=== PATIENT | male | born 1945 | race Caucasian/White ===

== ENCOUNTER 2023-12-01 17:14 | Emergency (ER) | payer MEDICARE, BC, SELFPAY ==
[2023-12-01] VITALS (7 sets, daily range): BP systolic 123–162; BP diastolic 74–88; PULSE 57–80; RESP 12–16; TEMP 37.2; O2SAT 93–96; BMI 36.0
--- NOTE | 2023-12-01 17:45 | ED.GENADULT ---
HPI - General Adult General Chief complaint: Arrhythmia/Palpitations Stated complaint: Chest tightness/weakness. History of heart arrythm Time Seen by Provider: 12/01/23 17:28 History of Present Illness HPI narrative: This 78-year-old male comes in reporting some chest tightness that occurred prior to arrival when he was working on a flower box. Upon arrival here he states that he is not having any symptoms. The this occurred with mild to moderate activity and was relieved with rest. He states that last week he had similar chest tightness when he was running at [employer]. He does not report any nausea, vomiting, lightheadedness, shortness of breath, or diaphoresis. He does report some palpitations. He does have history of hyperlipidemia and is taking appropriate medicines. He does not report any other risk factors for heart disease. Related Data Home Medications Medication Instructions Recorded Confirmed atorvastatin 20 mg tablet mg PO 12/01/23 levothyroxine 75 mcg tablet mcg PO 12/01/23 losartan 50 mg tablet 50 mg PO DAILY 12/01/23 12/01/23 metoprolol succinate 50 mg mg PO 12/01/23 tablet,extended release 24 hr niacin 500 mg tablet,extended mg PO 12/01/23 release (Slo-Niacin) Allergies Allergy/AdvReac Type Severity Reaction Status Date / Time No Known Drug Allergies Allergy Verified 12/01/23 17:20 Review of Systems Status of ROS: Reports: 10 or more systems reviewed and unremarkable except as noted in History and below Narrative: Constitutional: No fevers, no weight gain or loss. Eyes: No discharge. No vision changes. HENT: No congestion, no sore throat, no ear pain. Cardiovascular: Chest tightness with exertion and relieved with rest. He reports palpitations. Respiratory: No shortness of breath, no wheezes, no cough. Gastrointestinal: No abdominal pain, no vomiting, no diarrhea. Genitourinary: No dysuria, no hematuria. Musculoskeletal: Normal range of motion. Skin: No rashes, no pruritis. Neurological: No dizziness, weakness, sensory change, speech change. Endo/Heme/Allergies: No bruising or bleeding. No polydipsia. Pysch: no suicidality, no anxiety, no insomnia. All other systems reviewed and are negative. PFSH PFSH Social History Smoking Status: Never smoker How often do you have a drink containing alcohol: never AUDIT-C Alcohol total score: 0 Non-prescribed substance use: denies use Exam Narrative: Exam Narrative: Constitutional: Well-developed, well-nourished, no acute distress. HEENT: Normocephalic, atraumatic. Neck: Normal range of motion. Nontender. Supple. Heart: The occasional premature beats. No murmurs. Normal rate. Intact distal pulses. Lungs: Clear to auscultation. No chest discomfort. No wheezes, rhonchi, or rales. Abdomen: Normal bowel sounds. Nontender. No rebound tenderness. Genitalia: Deferred. Back: No midline tenderness. Normal range of motion. Extremities: Normal range of motion. No injury. Skin: Intact. No rash. Warm. No erythema or pallor. Neurologic: No altered sensation. No weakness. Alert and oriented. Psychiatric: No suicidality. No anxiety or depression. No insomnia. Nursing notes and vitals signs are reviewed. Const: Vital Signs, click to edit/add: Vital Signs - 24 hr 12/01/23 17:21 Temperature 98.9 F Pulse Rate [Pulse Oximeter] 64 Respiratory Rate 14 Blood Pressure [Ri ght Upper Arm] 151/86 H Pulse Oximetry 94 Oxygen Delivery Me thod Room Air Course Vital Signs Vital signs: Initial Vital Signs Respiratory Effort Normal, Spontaneous, Non-Labored 12/01/23 17:20 Respiratory Depth Normal 12/01/23 17:20 Vital Signs Temperature 98.9 F 12/01/23 17:21 Pulse Rate 64 12/01/23 17:21 Respiratory Rate 14 12/01/23 17:21 Blood Pressure 151/86 H 12/01/23 17:21 Pulse Oximetry 94 12/01/23 17:21 Oxygen Delivery Method Room Air 12/01/23 17:21 Temperature 98.9 F 12/01/23 17:21 Pulse Rate 64 12/01/23 17:21 Respiratory Rate 14 12/01/23 17:21 Blood Pressure 151/86 H 12/01/23 17:21 Pulse Oximetry 94 12/01/23 17:21 Oxygen Delivery Method Room Air 12/01/23 17:21 Medications Administered Medications: Generic Name Dose Route Start Last Admin Trade Name Freq PRN Reason Stop Dose Admin Metoprolol Tartrate 25 mg 12/01/23 18:50 12/01/23 18:56 Metoprolol Tartrate 25 Mg Tablet PO 12/01/23 18:51 25 mg ONCE ONE Administration Medical Decision Making MDM Narrative Medical decision making narrative: This patient comes in reporting chest tightness that is related to exertion and relieved with rest. He did not have any other associated symptoms but these symptoms have repeated in the past week. He does have hyperlipidemia and is taking metoprolol. He did receive an oral dose of aspirin 324 mg here today. He is no longer having any pain or discomfort. On the cardiac technician he is having frequent PVCs sometimes in a pattern of bigeminy. His EKG shows normal sinus rhythm without any ST or T-wave abnormalities. Lab results returned with a troponin at 0. This patient has classic symptoms of stable angina and I recommended consult with Cardiology for purposes of expediting a follow-up for him. The patient is a [facility] patient and wants to go back there. I attempted to consult with Cardiology there but they denied such a consult stating that the patient has not been in the cardiology clinic there it within the last 2 years. I relayed this information to the patient and stated that [facility] did not to arrange a consult for such follow-up. I offered to arrange a cardiology consult elsewhere such as with [facility] but the patient declined this stating that he will arrange an appointment himself at the [facility] facility. The patient is encouraged to take a regular strength aspirin daily and continue his metoprolol. I advised him to avoid doing any strenuous activity that causes symptoms. I also advised him to return if symptoms are recurrent. Lab Data Labs: Lab Results 12/01/23 Range/Units 17:35 WBC 7.13 (4.50-11.00) K/uL RBC 4.94 (4.30-5.90) m/uL Hgb 15.1 (13.5-17.5) gm/dL Hct 43.5 (37.0-53.0) % MCV 88 (80-100) fL MCH 31 (26-34) pg MCHC 35 (32-36) gm/dL RDW Coeff of Nehal 11.8 (11.5-15.5) % Plt Count 202 (140-440) K/uL Neut % (Auto) 60.5 (42.0-72.0) % Lymph % (Auto) 30.9 (20-44) % Bollinger % (Auto) 6.9 (0.0-11.0) % Eos % (Auto) 1.1 (0.0-7.0) % Baso % (Auto) 0.6 (0.0-3.0) % Neut # (Auto) 4.32 (1.7-7.0) K/uL Lymph # (Auto) 2.20 (0.90-2.90) K/uL Bollinger # (Auto) 0.50 (0.00-0.90) K/UL Eos # (Auto) 0.08 (0.00-0.50) K/uL Baso # (Auto) 0.04 (0.00-0.30) K/uL Abs Immat Gran (auto) 0.00 (0.00-0.30) K/uL Imm/Tot Granulo (auto) 0.0 % Sodium 140 (135-149) mmol/L Potassium 4.0 (3.6-5.1) mmol/L Chloride 108 (96-114) mmol/L Carbon Dioxide 26 (20-32) mmol/L Anion Gap 6 L (7-15) mEq/L BUN 20 (7-30) mg/dL Creatinine 1.0 (0.5-1.5) mg/dL Estimated Creat Clear 57.84 Estimated GFR 78 ml/min Glucose 104 (60-115) mg/dL Calcium 9.3 (8.4-10.6) mg/dL POC Troponin I 0.00 L (0.01-0.04) ng/ml ECG Data Attestation: I personally reviewed and interpreted this ECG as follows: Interpretation: Normal sinus rhythm. Rate is 76 beats per minute. There are no ST or T-wave abnormalities. Discharge Plan Discharge Clinical Impression: Stable angina Patient Disposition: Home, Self-Care Condition: Unchanged Additional Instructions: Follow-up with cardiology clinic as soon as possible. Call for appointment or return if symptoms are recurrent or worsening. Take a 325 mg aspirin daily. Prescriptions: No Action losartan 50 mg tablet 50 mg PO DAILY atorvastatin 20 mg tablet PO metoprolol succinate 50 mg tablet extended release 24 hr PO levothyroxine 75 mcg tablet PO niacin [Slo-Niacin] 500 mg tablet extended release PO Follow Up/Referrals: Iban Sabillon MD [Referring] - Stand Alone Forms: Myrl Info Instructions
--- OUTSIDE RECORDS SUMMARY | 2023-12-01 18:01 | XMS_ITS | Referral Summary ---
Author Name Unknown Organization [facility] Address [address] [place] [address] Care Team Providers Care Glycerin Operator Name Role Phone Elsewhere, Pcp Primary Care Provider Unavailabl e Source Comments Patient records contain information from all sites at [facility]. For routine questions regarding patient records, call [phone] during business hours, M-F 8:00 AM - 5:00 PM Central Time. Record requests for emergency care only can be directed to [phone] at any time.[facility] Encounters Date Type Department Care Team Description 09/22/2023 Orders Only Division of Gastroenterology in [place], [place] [address] [place] [address] Rajiv Teran M.D. Genetic Susceptibility To Disease from Last 3 Months Allergies No known active allergies Medications Medication Sig Dispensed Refills Start Date End Date Status cholecalciferol (VITAMIN D3) 125 mcg (5,000 Unit) tablet Take 1,000 Units by mouth daily. 11/25/2012 Active metoprolol succinate (TOPROL-XL) 50 mg 24 hr tablet Take 50 mg by mouth every evening. 07/18/2020 Active losartan (COZAAR) 50 mg tablet TAKE 1 TABLET(50 MG) BY MOUTH EVERY DAY 09/18/2021 Active levothyroxine (SYNTHROID, LEVOTHROID) 75 mcg tablet Take 75 mcg by mouth. 08/21/2021 Act nadia hydrocortisone (HYTONE) 2.5 % creamIndications:De rmatitis Seborrheic Apply 1 application topically 2 (two) times a day as needed (Rash). Apply to ears, mix 1:1 with ketoconazole cream 30 g 6 02/11/2022 Active ketoconazole (NIZORAL) 2 % shampooIndications: Dermatitis Seborrheic Apply 1 application topically 3 (three) times a week. Apply to damp skin, lather, leave on 5 minutes, and rinse 120 mL 6 02/11/2022 Active ketoconazole (NIZORAL) 2 % creamIndications:De rmatitis Seborrheic APPLY TOPICALLY TO EARS TWICE DAILY 30 g 6 03/09/2022 Active Slo-Niacin 500 mg ER tablet 05/03/2022 Active atorvastatin (LIPITOR) 20 mg tablet Take 1 tablet by mouth at bedtime. 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 No 11/14/2022 Within the last year, have y ou been humiliated or emotionally abused in other ways by your partner or ex-partner? No Within the last year, have y ou been kicked, hit, slapped, or otherwise physically hurt by your partner or ex-partner? No 11/14/2022 Within the last year, have y ou been raped or forced to have any kind of sexual activity by your partner or ex-partner? No 11/14/2022 Social Connection and Isolat ion Panel [NHANES] Answer Date Recorded In a typical week, how many times do you talk on the phone with family, friends, or neighbors? More than three times a week 11/14/2022 How often do you get togethe r with friends or relatives? More than three times a week 11/14/2022 How often do you attend [facility] or spiritism services? More than 4 times per year 11/14/2022 Do you belong to any clubs o r organizations such as roman catholic groups, unions, fraternal or athletic groups, or school groups? No 11/14/2022 How often do you attend meet ings of the clubs or organizations you belong to? Never 11/14/2022 Are you , , di vorced, , never , or living with a partner? 11/14/2022 AUDIT-C Answer Date Recorded Q1: How often do you have a drink containing alcohol? Monthly or less 11/14/2022 Q2: How many drinks containi ng alcohol do you have on a typical day when you are drinking? Patient does not drink Q3: How often do you have si x or more drinks on one occasion? Never 11/14/2022 Overall Financial Resource Strain (CARDIA) Answe r Date Recorded How hard is it for you to pa y for the very basics like food, housing, medical care, and heating? Not hard at all 11/14/2022 PHQ-2 Answer Date Recorded PHQ-2 Score 0 11/01/2023 [facility] - Occupational Stress Questionnaire Answer Date Recorded Do you feel stress - tense, restless, nervous, or anxious, or unable to sleep at night because your mind is troubled all the time - these days? To some extent 11/14/2022 Exercise Vital Sign Answer Date Recorde d On average, how many days pe r week do you engage in moderate to strenuous exercise (like a brisk walk)? 0 days 11/14/2022 On average, how many minutes do you engage in exercise at this level? 0 min 11/14/2022 Hunger Vital Sign Answer Date Recorded Within the past 12 months, y ou worried that your food would run out before you got the money to buy more. Never true 11/15/19 23 Within the past 12 months, t he food you bought just didn't last and you didn't have money to get more. Never true 11/14/2022 PRAPARE - Transportation Answer Date Re corded In the past 12 months, has l ack of transportation kept you from medical appointments or from getting medications? No 10/31 In the past 12 months, has l ack of transportation kept you from meetings, work, or from getting things needed for daily living? No 11/14/2022 Housing Stability Vital Sign Answer Colin e Recorded In the last 12 months, was t here a time when you were not able to pay the mortgage or rent on time? No 11/14/2022 In the last 12 months, how many places have you lived? 1 11/14/2022 In the last 12 months, was t here a time when you did not have a steady place to sleep or slept in a half-way (including now)? No 11/14/2022 Nutrition Answer Date Recorded Nutrition: EVOO Fat Source No 11/14 On average, how many serving s of fruits and vegetables do you eat per day (serving size is equal to 1 cup or approximately the size of a tennis ball)? 0-1 11/14/2022 Dental Answer Date Recorded Dental: Regular Dentist Yes 08/11/19 Employment Answer Date Recorded Employment status Retired 11/14/2022 Education Answer Date Recorded What is the highest level of school you have completed or the highest degree you have received? Bachelor's degree (e.g., BA, AB, BS) 04/28/2019 Sex and Gender Information Value Date Recorded Sex Assigned at Male 11/14/2022 2:04 PM CDT Gender Identity Male 11/14/2022 2:04 PM CDT Sexual Orientation Straight 12/20/2017 2: 04 PM CDT Last Filed Vital Signs Vital Sign Reading Time Taken Comments Blood Pressure 133/78 05/04/2022 9:00 AM CDT Pulse 68 05/04/2022 9:00 AM CDT Temperature 36.7 ??C (98.1 ??F) 12/30/2021 8:50 AM CD T Respiratory Rate 10 12/30/2021 9:13 AM CDT Oxygen Saturation 93% 12/30/2021 9:13 AM CDT Inhaled Oxygen Concentration - - Weight 97.5 kg (215 lb) 12/19/2020 10:10 AM CDT Height 180.3 cm (5' 11) 12/19/2020 10:10 AM CDT Body Mass Index 29.99 12/19/2020 10:10 AM CDT Plan of Treatment Upcoming Encounters Date Type Department Care Team (Late st Contact Info) Description 02/01/2024 11:30 AM CDT Comprehensive Visit Department of Family Medicine, [facility], in [place], [place] [address] [place] [address] Kenia Millan APRN, C.N.P. [address] [place] [address] Scheduled Procedures Name Priority Associated Diagnoses Date/Ti me ARTHRODESIS WRIST Medical Devices Implanted Type Area Contact Lens Technician Device Identifier Shelf Expiration Date Model / Serial / Lot Cmnt Bn Hi Visc Pmma 20 - [id number] Implanted:Qty: 1 on 09/22/2019 by Charanjit Kc M.D. at [facility] Bone Cement Right: Shoulder [place] 6188-1-0 01 / / Cmnt Bn Hi Visc Pmma 20 - [id number] Implanted:Qty: 1 on 09/22/2019 by Charanjit Kc M.D. at [facility] Bone Cement Right: Shoulder William 6188-1-0 01 / / Description:Wasted: Surgeon Error- attempted to use in patient but hardened too quick with implant Screw Xpode Lock 2.4 X 20mm - Germain [id number] Implanted:Qty: 2 on 09/18/2014 Hardware e.g. pins/screws /rods [employer] Description:Device Manufactu rer - [employer] Device Status Text - HARDWARE-15071. Kwire 4 .054 - Germain [id number] Implanted:Qty: 1 on 09/18/2014 Hardware e.g. pins/screws /rods BioMet Description:Device Manufactu rer - [employer]. Device Status Text - HARDWARE-02740. Screw Xpode Lock 2.4 X 14mm - Germain [id number] Implanted:Qty: 2 on 09/18/2014 Hardware e.g. pins/screws /rods [employer] Description:Device Manufactu rer - [employer].. Device Status Text - HARDWARE-37053. Screw Xpode Lock 2.4 X 16mm - Germain [id number] Implanted:Qty: 1 on 09/18/2014 Hardware e.g. pins/screws /rods [employer] Description:Device Manufactu rer - [employer].. Device Status Text - HARDWARE-21432. Trimed-Plate Fusion Cup 14mm 7h - Germain [id number] Implanted:Qty: 1 on 09/18/2014 Hardware e.g. pins/screws /rods [employer] Description:Device Manufactu rer - [employer].. Device Status Text - [id number]. K-Wire-Ss 4 Smooth .062 - Germain [id number] Implanted:Qty: 2 on 09/18/2014 Hardware e.g. pins/screws /rods [place] Description:Device Manufactu rer - [place] [employer].. Device Status Text - HARDWARE-871. Screw Xpode Lock 2.4 X 12mm - Germain [id number] Implanted:Qty: 5 on 09/18/2014 Hardware e.g. pins/screws /rods [employer] Description:Device Manufactu rer - [employer].. Device Status Text - HARDWARE-15395. Screw Xpode Lock 2.4 X 10mm - Germain [id number] Implanted:Qty: 2 on 09/18/2014 Hardware e.g. pins/screws /rods [employer] Description:Device Manufactu rer - [employer].. Device Status Text - HARDWARE-93893. [place] Screw 2 Canc 6.5 X 15 - Germain [id number] Implanted:Qty: 1 on 07/03/2015 Hardware e.g. pins/screws /rods [employer] Description:Device Manufactu rer - [employer]. Device Status Text - HARDWARE-89252. [place] Screw 2 Canc 6.5 X 30 - Germain [id number] Implanted:Qty: 1 on 07/03/2015 Hardware e.g. pins/screws /rods [employer] Description:Device Manufactu rer - [employer]. Device Status Text - HARDWARE-90223. Scrw Pnn Acet Ft 6.5x35 - [id number] Implanted:Qty: 1 on 10/18/2020 by López Ramos M.D. at [facility] Hardware e.g. pins/screws /rods Left: Hip Depuy Synthes 08/01/2030 1217-35- 500 / / [id number] Scrw Pnn Acet Ft 6.5x8 - [id number] Implanted:Qty: 1 on 10/18/2020 by López Ramos M.D. at [facility] Hardware e.g. pins/screws /rods Left: Hip Depuy Synthes 07/01/2030 1217-08- 500 / / [id number] [place] Liner Altrx Neut 36x62 - Germain [id number] Implanted:Qty: 1 on 07/03/2015 Hip Implant Other/Legacy - See Implant Description [employer] Description:Device Manufactu rer - [employer]. Body Location - Other. Right. Device Status Text - HIP [id number]-331714. Hip Stem Secur-Fit +Max 12 40 - Germain [id number] Implanted:Qty: 1 on 07/03/2015 Hip Implant Other/Legacy - See Implant Description William Description:Device Manufactu rer - [employer] E[employer].. Body Location - Other. Right. Device Status Text - HIP IMP-340673. Biolox-Delta Head C-Taper 36mm -2.5 - Germain [id number] Implanted:Qty: 1 on 07/03/2015 Hip Implant Other/Legacy - See Implant Description [place] Description:Device Manufactu rer - [place] [employer].. Body Location - Other. Right. Device Status Text - HIP [id number]. [place] Shell Multi 2 62mm - Germain [id number] Implanted:Qty: 1 on 07/03/2015 Hip Implant Other/Legacy - See Implant Description [employer] Description:Device Manufactu rer - [employer]. Body Location - Other. Right. Device Status Text - HIP IMP-118641. Shll Acet Pnn [facility] 62 - [id number] Implanted:Qty: 1 on 10/18/2020 by López Ramos M.D. at [facility] Hip Implant Left: Hip Depuy Synthes 08/01/2030 1217-20- 062 / / [id number] Lnr Alt 0d 40x62 - [id number] Implanted:Qty: 1 on 10/18/2020 by López Ramos M.D. at [facility] Hip Implant Left: Hip Depuy Synthes 09/01/2025 1221-40- 062 / / [id number] Hip Stm Scr +Max Sz12 98r765 - [id number] Implanted:Qty: 1 on 10/18/2020 by López Ramos M.D. at [facility] Hip Implant Left: Hip William 05/31/2024 6052-124 0S / / [id number] Slv Drl Hip Cocr -2.5 - [id number] Implanted:Qty: 1 on 10/18/2020 by López Ramos M.D. at [facility] Hip Implant Left: Hip William 10/22/2024 19-0325T / / [id number] Fem Hd Blx +0x40 - [id number] Implanted:Qty: 1 on 10/18/2020 by López Ramos M.D. at [facility] Hip Implant Left: Hip William 06/16/2025 6519-1-0 40 / / [id number] Comp Glnd Alt Pgd 50 - [id number] Implanted:Qty: 1 on 09/22/2019 by Charanjit Kc M.D. at [facility] Shoulder Implant Right: Shoulder [employer] 01/05/2023 521-07-2 50 / / [id number] Description:Wasted: Surgeon Error, opened and attempted use Comp Glnd Alt Pgd 50 - [id number] Implanted:Qty: 1 on 09/22/2019 by Charanjit Kc M.D. at [facility] Shoulder Implant Right: Shoulder [employer] 11/22/2022 521-07-2 50 / / [id number] Hum Stm Alt Shrt 16 - [id number] Implanted:Qty: 1 on 09/22/2019 by Charanjit Kc M.D. at [facility] Shoulder Implant Right: Shoulder [employer] 03/01/2024 520-16-0 00 / / [id number] Hum Stm Alt Neut - [id number] Implanted:Qty: 1 on 09/22/2019 by Charanjit Kc M.D. at [facility] Shoulder Implant Right: Shoulder [employer] 06/21/2025 520-07-0 / [id number] [facility] Alt Ofst 18x54 - [id number] Implanted:Qty: 1 on 09/22/2019 by Charanjit Kc M.D. at [facility] Shoulder Implant [employer] 06/02/2023 520-54-3 [id number] Procedures Procedure Name Priority Date/Time Associated Diagnosis Comments EXTI TSH W/REFLEX TO FT4 Routine 10/07/2022 11:38 AM FACEPIECE LINE SUPERVISOR EXTI BASIC METABOLIC PANEL, S/P Routine 10/07/2022 11:38 AM FACEPIECE LINE SUPERVISOR from Last 3 Months or Most Recently Relevant to Health Maintenance Advance Directives For more information, please contact: [phone] * Full Code (Latest Code Status on File) Date Activated Date Inactivated Comments 10/18/2020 12:00 PM 10/19/2020 12:55 PM Question Answer Comments Full Code: Discussed Care Teams Glycerin Operator Relationship Specialty Start Date End Date Elsewhere, Pcp PCP - General Internal Medicine 11/08/23
--- OUTSIDE RECORDS SUMMARY | 2023-12-01 18:01 | XMS_ITS | Encounter Summary ---
Author Name Unknown Organization [facility] Address [address] [place] [address] Care Team Providers Care Weapons Engineer Name Role Phone Unavailable Primary Care Provider Unavailabl e Encounter Details Date Type Department Care Team (Late st Contact Info) Description 09/22/2023 Orders Only Division of Gastroenterology in [place], [place] [address] [place] [address] Rajiv Teran M.D. [address] [place] [address] Genetic Susceptibility To Disease Social History Tobacco Use Types Packs/Day Years [...] week 11/14/2022 How often do you attend chur or voodoo services? More than 4 times per year 11/14/2022 Do you belong to any clubs o r organizations such as taoist groups, unions, fraternal or athletic groups, or [...] and heating? Not hard at all 11/14/2022 [facility] - Occupational Stress [...] place to sleep or slept in a senior care (including now)? No 11/14/2022 Nutrition Answer Date [...] Orientation Straight 12/20/2017 2: 04 PM CDT documented as of this encounter Plan of Treatment Upcoming Encounters Date Type Department Care Team (Late st Contact Info) Description 02/01/2024 11:30 AM CDT Comprehensive Visit Department of Family Medicine, [facility], in [place], [place] [address] [place] [address] Kenia Millan APRN, C.N.P. [address] [place] [address] Scheduled Procedures Name Priority Associated Diagnoses Date/Ti me ARTHRODESIS WRIST documented as of this encounter Procedures Procedure Name Priority Date/Time Associated Diagnosis Comments EXT TAPESTRY Routine 10/17/2022 12:00 AM CDT Genetic Susceptibility To Disease documented in this encounter Results * EXT Tapestry (10/17/2022 12:00 AM CDT) Gene Studied BRCA1,BRCA2,MLH1,MSH 2, MSH6,PMS2,EPCAM,APOB,L DLR,LDLRAP1,PCSK9 11/09/2022 12:00 AM CDT [facility] Genetic Disease Assessed Evaluation of 11 genes associated with Hereditary Breast and Ovarian Cancer, Rowland Syndrome and Familial Hypercholesterolemia. 11/09/2022 12:00 AM CDT [facility] Genetic Analysis Overall Interpretation Negative results through Tapestry do not replace diagnostic testing for patients with a personal or family history of cancer/hypercholestero lemia due to limitations with methodology. Consider a referral to a genetic counselor for diagnostic testing if warranted. 11/09/2022 12:00 AM CDT [facility] Genetic Analysis Report See Tapestry PDF Report No actionable gene changes were detected in the genes that cause Familial Hypercholesterolemia. The genes tested for this condition were APOB, LDLR, LDLRAP1, and PCSK9.No actionable gene changes were detected in the genes that cause Hereditary Breast and Ovarian Cancer. The genes tested for this condition were BRCA1 and BRCA2.No actionable gene changes were detected in the genes that cause Rowland Syndrome. The genes tested for this condition were MLH1, MSH2, MSH6, PMS2 and EPCAM. DNA extracted from this individual's sample was captured and enriched using a custom set of reagents (StepOut+ chemistry). Targeted regions were sequenced using an Illumina DNA sequencing system. Your sequence was matched to a modified version of the industry standard reference genome (GRCh38). Variant calling was completed using a customized version of [employer]'s [employer] software, requiring 20x coverage for validated variant calls. Copy Number Variants (CNVs) were called using a proprietary bioinformatics pipeline that compared the coverage profile of your sample with the coverage profiles of other reference set samples. [facility] then analyzed the generated variant data for the exons and 10 bp of flanking intronic sequence (and select tagged intronic variants) of the 11 genes included in Essential Testing from the [employer] Database. Your sample was reviewed for single nucleotide variants (SNVs), indels up to 20 bp in length, and CNVs that are known or predicted to be actionable. NOTE: This assay has limited sensitivity to CNVs smaller than a few exons. APOB, PCSK9, and LDLR interpretation and reporting is specific to the Familial Hypercholesterolemia phenotype. Variants associated with other phenotypes such as Hypobetalipoproteinemi a are not included. Some known complex variants like the inversion of exons 1-7 in the MSH2 gene (Nilam inversion), exons 11-15 of the PMS2 gene, or variants within or immediately adjacent to long homopolymer runs are not analyzed or reported. There are regions that are not covered, such as deep intronic, promoter, and enhancer regions. This assay cannot detect all variants known to increase disease risk. Other clinical diagnostic testing for these conditions could identify variants not detected by this test. If you have had previous testing, these results should be taken into consideration during risk assessments and medical management. 11/09/2022 12:00 AM CDT [facility] Human Reference Sequence Assembly [id number] 11/09/2022 12:00 AM [facility] Saliva (Mouth) 10/17/2022 Rajiv Teran M.D. LAB GENETI C TESTING HELIX [employer] [address], [address] [place] [address], [facility] [place] [address], [address]. [place] [address] documented in this encounter Visit Diagnoses Diagnosis Genetic Susceptibility To Disease documented in this encounter
--- OUTSIDE RECORDS SUMMARY | 2023-12-01 18:01 | XMS_ITS | Clinical Summary ---
Author Name Unknown Organization [facility] Address [place], [place] [address] Care Team Providers Care Manager Labor Relations Name Role Phone James Pompa MD Unavailable [phone] Jose Carpenter MD Unavailable Unavai shanelle iLn, Neto Weaver MD Unavailable [phone] Clemente Núñez MD Unavailable [phone] Floyd Valdez MD Primary Care Provider [phone] Allergies No known active allergies Medications Medication Sig Dispensed Refills Start Date End Date Status hydrocortisone 2.5% cream Apply topically to affected area(s). 07/06/2017 Active cholecalciferol (Vitamin D) 1,000 unit capsuleIndications:V itamin D deficiency Take 1 Capsule (1,000 units) by mouth once daily. 0 08/21/2021 Active ketoconazole 2% shampoo (NIZORAL) 2 % shampoo 02/12/2022 Active ketoconazole 2% topical (NIZORAL) cream 02/12/2022 Active metoprolol succinate (TOPROL XL) 50 mg sustained-release tabletIndications:Es sential hypertension,PVCs (premature ventricular contractions) Take 1 Tablet (50 mg) by mouth once daily. 90 Tablet 3 11/10/2023 Active niacin SR (Slo-Niacin) 500 mg tabletIndications:Mi xed hyperlipidemia Take 1 Tablet (500 mg) by mouth at bedtime. 90 Tablet 3 11/10/2023 Active levothyroxine (SYNTHROID) 75 mcg tabletIndications:Ot her specified hypothyroidism Take 1 Tablet (75 mcg) by mouth once daily. 90 Tablet 3 11/10/2023 Active atorvastatin (LIPITOR) 20 mg tabletIndications:Mi xed hyperlipidemia Take 1 Tablet (20 mg) by mouth at bedtime. 90 Tablet 3 11/10/2023 Active losartan (COZAAR) 50 mg tabletIndications:Es sential hypertension TAKE 1 TABLET EVERY DAY 90 Tablet 3 11/10/2023 Active levothyroxine (SYNTHROID) 75 mcg tabletIndications:Ot her specified hypothyroidism Take 1 Tablet (75 mcg) by mouth once daily. 90 Tablet 3 10/12/2022 4 Discontinue d(Reorder (E-cancel not sent)) metoprolol succinate (TOPROL XL) 50 mg sustained-release tabletIndications:Es sential hypertension,PVCs (premature ventricular contractions) Take 1 Tablet (50 mg) by mouth once daily. 90 Tablet 3 10/12/2022 4 Discontinue d(Reorder (E-cancel not sent)) niacin SR (Slo-Niacin) 500 mg tabletIndications:Mi xed hyperlipidemia Take 1 Tablet (500 mg) by mouth at bedtime. 90 Tablet 3 10/12/2022 4 Discontinue d(Reorder (E-cancel not sent)) atorvastatin (LIPITOR) 20 mg tabletIndications:Mi xed hyperlipidemia TAKE 1 TABLET AT BEDTIME 90 Tablet 10/14/2023 4 Discontinue d(Reorder (E-cancel not sent)) losartan (COZAAR) 50 mg tabletIndications:Es sential hypertension TAKE 1 TABLET EVERY DAY 90 Tablet 10/14/2023 4 Discontinue d(Reorder (E-cancel not sent)) Active Problems Problem Noted Date Diagnosed Date Essential hypertension 01/30/2019 S/P hip replacement 07/09/2015 Overview: bilateral DDD (degenerative disc disease), cervical 2013 Wrist arthropathy 04/19/2014 Screen for colon cancer 01/07/2010 Overview: Colonoscopy 12/2009 diverticulosis repeat in 10 years Mixed hyperlipidemia 10/29/2009 DDD (degenerative disc disease), lumbar 10/30/19 10 Vitamin D deficiency 08/13/2009 Diverticular disease 10/10/2008 Overview: Diverticulosis Esophageal stricture 08/11/2007 Unspecified hypothyroidism 12/31/2006 Resolved Problems Problem Noted Date Diagnosed Date Resolved Date Family hx colonic polyps 10/29/200903/2010 Encounters Date Type Department Care Team Description 12/01/2023 Nurse Triage [facility] [address] [place] [address] Floyd Valdez MD Chest Pain 11/10/2023 1:10 PM CDT Office Visit [facility] [address] Floyd Valdez MD Medicare ANNUAL (subsequent) Visit (77 years) 11/10/2023 Travel 11/08/2023 8:15 AM CDT Orders Only [facility] [address] [place], [place] [facility] 11/08/2023 Travel 11/07/2023 Travel 10/22/2023 Telephone [facility] [address] [facility] [address] Floyd Valdez MD Lab (Requesting orders for wellness visit) 10/13/2023 Refill [facility] [place] [address] Floyd Valdez MD Refill Request (Atorvastatin, Losartan) from Last 3 Months Immunizations Name Administration Dates Next Due AMB INFLUENZA IIV3 (AGE 65+ YRS) PF (Flu Clinic Only) 04/27/2017 AMB Influenza, IIV3 (Age >=3 years)(Flu Clinic Only) 05/29/2013 AMB Influenza, IIV4 PF (=>6 mos Flulaval,Fluzone Fluarix)(Flu Clinic Only) 05/09/2019,05/03/2014 Amb Influenza, Inact (High-d ose) (Flu Clinic Only) 05/08/2016 Amb Influenza, Inactivated A IIV4 (Age 65+ Years) Preserv Free 04/22/2020 COVID-19 vaccine ([email or web address] 30mcg/0.3mL) PF, MDV 05/07/2021 Influenza A (H1N1), Inactiva nikos (Age >=3 Years) 07/16/2009 Influenza, High-dose Inactivated 05/01/2015 Influenza, High-dose Quadriv alent Inactivated 05/18/2023,05/19/2022 Influenza, IIV3 (Age 6-35 mos) 04/25/2010,2008 Influenza, IIV3 (Age >=3 years) 04/25/20 12,04/25/2010,05/18/2006,06/10 Influenza, Inactivated AIIV4 (Age 65+ Years) Preserv Free 05/07/2021 Influenza, Inactivated IIV3 (Age 65+ Years) Preserv Free 04/12/2018 Pneumococcal Poly,23-Valent (Pneumovax) 04/25/2012 Pneumococcal conj 13-Valent (Prevnar 13) 12/13/2014 RSV, Recombinant ADJ Reconst ituted (Arexvy 120MCG/0.5mL) 07/21/2023 Td (Age >=7 Years) 11/22/1995 Td, Preservative Free (age >= 7 Years) 8 Tdap 04/25/2012 Zoster (Shingrix-RZV, recombinant) 05/25/2019, Zoster (Zostavax-ZVL, live) 10/10/2008 Family History Medical History Relation Name Comments Cancer-prostate Brother Chito Thyroid Disease Brother Chito Allergies Father Cancer-colon Father colon polyps Hypertension Father Other Father at age 70, blood clot after a hip fx Cancer Mother pancreas d at 4 8 yo Diabetes Paternal Uncle 1 Other Paternal Uncle 2 tuberculosi s Cancer Sister 1 Kathaleen carcinoid and d ied of this in her late 60s Allergies Sister 2 Gerda Cancer-breast Sister 2 Gerda Relation Name Status Comments Brother Chito Alive Father Mother Paternal Uncle 1 Paternal Uncle 2 Sister 1 Kathaleen Sister 2 Gerda Alive Social History Tobacco Use Types Packs/Day Years Used Date Smoking Tobacco: Never Passive Smoke Exposure: Never Smokeless Tobacco: Never Tobacco Cessation:Counseling Given: Not Answered Alcohol Use Standard Drinks/Week Comments Not Currently 0 (1 standard drink = 0.6 oz pur e alcohol) PHQ-2 Answer Date Recorded PHQ-2 TOTAL SCORE 0 11/10/2023 Social Connections Answer Date Recorded Frequency of Communication with Friends and Fami ly 0 11/08/2023 Financial Resource Strain Answer Date R ecorded Difficulty of Paying Living Expenses 3 11/08/2023 Difficulty of Paying Living Expenses Not on file 11/08/2023 Food Insecurity Answer Date Recorded Worried About Running Out of Food in the Last Ye ar 1 11/08/2023 Transportation Needs Answer Date Record ed Lack of Transportation (Medical) 1 11/08/2023 Housing Stability Answer Date Recorded Unable to Pay for Housing in the Last Year 1 11/08/2023 Sex and Gender Information Value Date Recorded Sex Assigned at Not on file Gender Identity Not on file Sexual Orientation Not on file Obstetrics History Last Filed Vital Signs Vital Sign Reading Time Taken Comments Blood Pressure 120/75 11/10/2023 1:09 PM CDT Pulse 53 11/10/2023 1:09 PM CDT Temperature 36.5 ??C (97.7 ??F) 07/28/2023 11:[address] Respiratory Rate 20 04/12/2018 10:56 AM CDT Oxygen Saturation 94% 11/10/2023 1:09 PM CDT Inhaled Oxygen Concentration - - Weight 106.8 kg (235 lb 8 oz) 11/10/2023 1:09 PM CDT Height 178.8 cm (5' 10.39) 11/10/2023 1:09 PM C DT Body Mass Index 33.41 11/10/2023 1:09 PM CDT Plan of Treatment Health Maintenance Due Date Last Done Comments Tetanus booster 04/25/2022 04/25/2012, 04/03, 08/11/2007, Additional history exists Influenza for age 65+ 04/02/2024 05/18/2023 , 05/19/2022, 05/07/2021, Additional history exists BMI (ht and wt on same day) for age 18+ 11/09/2024 11/10/2023, 07/28/2023, 10/12/2022, Additional history exists Depression screening for age 12+ 11/09/2024 11/10/2023, 10/12/2022, 08/21/2021, Additional history exists Medicare Wellness for age 65+ 11/10/2024, 10/12/2022, 08/21/2021, Additional history exists Tdap Completed 04/25/2012 Pneumococcal series for age 65+ Completed 5, 04/25/2012 Hepatitis C screening for ag e 18-79 Completed 12/29/2017 Zoster (shingles) series for age 50+ Completed 05/25/2019, 02/14/2019, 10/10/2008 Fecal testing non-DNA (FIT,FOBT,iFOBT) for age 45-75 Discontinued 10/16/2022, 08/19/2021, 07/23/2020 COVID-19 vaccine series Completed 05/13/20 23, 05/04/2022, 10/30/2021, Additional history exists Procedures Procedure Name Priority Date/Time Associated Diagnosis Comments PSA TOTAL SCREEN Routine 11/08/2023 8:30 AM CDT Prostate cancer screening ALT (SGPT) Routine 11/08/2023 8:30 AM CDT Mixed hyperlipidemia BASIC METABOLIC PANEL Routine 11/08/2023 8:30 AM CDT Essential hypertension LIPID PANEL W REFLEX MEASURED LDL Routine 11/08/2023 8:30 AM CDT Mixed hyperlipidemia TSH Routine 11/08/2023 8:30 AM CDT Other specified hypothyroidism VITAMIN D 25 (DEFICIENCY) Routine 11/08/2023 8:30 AM CDT Vitamin D deficiency OCCULT BLOOD IFOBT STOOL Routine 10/16/2022 3:11 PM CDT Screening for colon cancer ANTI HCV Routine 12/29/2017 7:56 AM CDT Need for hepatitis C screening test from Last 3 Months or Most Recently Relevant to Health Maintenance Results * (ABNORMAL) LIPID PANEL W REFLEX MEASURED LDL (11/08/2023 8:30 AM CDT) CHOLESTEROL,TOTAL 133 100 - 199 mg/dL 11/08/2023 2:56 PM CDT [facility] Comment: Cholesterol, Total Reference Ranges Desirable <200 mg/dL Borderline 200-239 mg/dL High >=240 mg/dL TRIGLYCERIDES 155(H) <150 mg/dL 11/08/2023 2:56 PM CDT [facility] HDL CHOLESTEROL 31(L) >40 mg/dL 2:56 PM CDT [facility] NON-HDL CHOLESTEROL 102 <145 mg/dl 11/08/2023 2:56 PM CDT [facility] CHOL/HDL RATIO 4.29 <4.50 11/08/2023 2:56 PM CDT [facility] LDL CHOLESTEROL 71 <=130 mg/dL 11/08/2023 2:56 PM CDT [facility] VLDL CHOLESTEROL 31(H) <=30 mg/dL 11/08/2023 2:56 PM CDT [facility] PROVIDER ORDERED STATUS RANDOM 11/08/2023 2:56 PM CDT [facility] Blood BLOOD SPECIMEN / Unknown Venipuncture / Unknown 11/08/2023 8:30 AM CDT 11/08/2023 8:30 AM CDT Floyd Valdez MD CHEMISTRY [facility] [address] [place] [address], * VITAMIN D 25 (DEFICIENCY) (11/08/2023 8:30 AM CDT) VITAMIN D TOTAL 33.0 20.0 - 80.0 ng/mL 11/08/2023 2:56 PM CDT [facility] Blood BLOOD SPECIMEN / Unknown Venipuncture / Unknown 11/08/2023 8:30 AM CDT 11/08/2023 8:30 AM CDT Narrative [facility] - 11/08/2023 2:56 PM CDT ? Vitamin D Status Deficiency: ? <20 ng/mL Insufficiency: ?20-29 ng/mL Sufficiency: ?30-80 ng/mL Possible Toxicity: ??>80 ng/mL Based on [place] [facility] recommendations Biotin supplements may cause clinically significant interference for this test assay. ??If interference is suspected, it is strongly recommended that biotin is discontinued for at least one week prior to retesting. Floyd Valdez MD SEND OUTS Performing Organization Address City/[facility]/ZIP Co de Phone Number [facility] [address] [place] [address], * TSH (11/08/2023 8:30 AM CDT) TSH 2.31 0.27 - 4.20 uIU/mL 11/08/2023 2:56 PM CDT [facility] Blood BLOOD SPECIMEN / Unknown Venipuncture / Unknown 11/08/2023 8:30 AM CDT 11/08/2023 8:30 AM CDT Narrative [facility] - 11/08/2023 2:56 PM CDT In Adults, TSH values between 5.00 and 10.00 uIU/ml do not necessarily indicate the presence of Hypothyroidism. Correlation with clinical findings such as presence of goiter and/or Thyroperoxidase (TPO) Antibody may be helpful. For more information please refer to EMEKA 2004; 291: 228-238. Floyd Valdez MD CHEMISTRY Performing Organization Address [facility] Co de Phone Number [facility] [address] [place] [address], * ALT (SGPT) (11/08/2023 8:30 AM CDT) ALT (SGPT) 26 10 - 50 IU/L 11/08/2023 2:56 PM CDT [facility] Blood BLOOD SPECIMEN / Unknown Venipuncture / Unknown 11/08/2023 8:30 AM CDT 11/08/2023 8:30 AM CDT Floyd Valdez MD CHEMISTRY Performing Organization Address City/[facility]/ZIP Co de Phone Number [facility] [address] [place] [address], * (ABNORMAL) BASIC METABOLIC PANEL (11/08/2023 8:30 AM CDT) SODIUM 142 136 - 145 mmol/L 11/08/2023 2:56 PM CDT [facility] POTASSIUM 4.6 3.5 - 5.1 mmol/L 11/08/2023 2:56 PM CDT [facility] CHLORIDE 107 98 - 107 mmol/L 11/08/2023 2:56 PM CDT [facility] CO2,TOTAL 24 22 - 29 mmol/L 11/08/2023 2:56 PM T [facility] ANION GAP 11 5 - 18 11/08/2023 2:56 PM CDT [facility] GLUCOSE 100(H) 70 - 99 mg/dL 11/08/2023 2:56 PM T [facility] CALCIUM 9.7 8.8 - 10.2 mg/dL 11/08/2023 2:56 PM T [facility] BUN 13 8 - 23 mg/dL 11/08/2023 2:56 PM T [facility] CREATININE 1.12 0.70 - 1.20 mg/dL 11/08/2023 2:56 PM T [facility] BUN/CREAT RATIO 12 10 - 20 2:56 PM T [facility] eGFR 68(L) >90 mL/min/1.7 3m2 11/08/2023 2:56 PM T [facility] Comment:As of 2021, eG FR is calculated by the CKD-EPI creatinine equation without race adjustment. ??eGFR can be influenced by muscle mass, exercise, and diet. ??The reported eGFR is an estimation only and is only applicable if the renal function is stable. Blood BLOOD SPECIMEN / Unknown Venipuncture / Unknown 11/08/2023 8:30 AM CDT 11/08/2023 8:30 AM CDT Floyd Valdez MD CHEMISTRY Performing Organization Address City/[facility]/ZIP Co de Phone Number [facility] [address] [address], * PSA TOTAL SCREEN - Dx Auto-associated (11/08/2023 8:30 AM CDT) PSA TOTAL (SCREEN) 0.82 <4.00 ng/mL 11/08/2023 2:56 PM CDT [facility] Blood BLOOD SPECIMEN / Unknown Venipuncture / Unknown 11/08/2023 8:30 AM CDT 11/08/2023 8:30 AM CDT Narrative [facility] - 11/08/2023 2:56 PM CDT The test method changed on 01/26/2023. If this test has been used for serial monitoring, rebaselining is recommended. Rebaselining consists of 2 measurements, collected 3-6 weeks apart. The [employer] total PSA assay is an electrochemiluminescence immunoassay ECLIA performed on the [employer] e immunoassay analyzers. Values obtained with different assay methods may be different and cannot be used interchangeably. Floyd Valdez MD LABORATORY Performing Organization Address [facility] Co de Phone Number [facility] [address] [address], * OCCULT BLOOD IFOBT STOOL (10/16/2022 3:11 PM CDT) STOOL BLOOD ,IFOBT Negative Negative 10/21/2022 8:40 AM CDT [facility] Stool STOOL SPECIMEN / Unknown Non-Blood / Unknown 10/16/2022 3:11 PM CDT 10/20/2022 3:11 PM CDT Floyd Valdez MD LABORATORY [facility] [address] [place] [address], * ANTI HCV (12/29/2017 7:56 AM CDT) HEPATITIS C ANTIBODY Non-React nadia Non-React nadia 12/29/2017 5:33 PM CDT [facility] Comment:Antibodies to HCV no t detected; does not exclude the possibility of exposure to HCV. Blood BLOOD SPECIMEN / Unknown Venipuncture / Unknown 12/29/2017 7:56 AM CDT 12/29/2017 10:51 AM CDT Iban Sabillon MD SEND OUTS [facility] [address] [place] [address], from Last 3 Months or Most Recently Relevant to Health Maintenance Care Teams Manager Labor Relations Relationship Specialty Start Date End Date Floyd Valdez MD [address] [place] [address] PCP - General Family Practice 09/10/22 James Pompa MD [address] [place] [address] Gastroenterology 11/24/11 Jose Carpenter MD [address] [place] [address] Surgery - Urology 11/24/11 Neto Lin MD [address] [place] [address] Orthopedics Surgery - Orthopedic 07/11/13 Clemente Núñez MD [address] [facility] [address] [place] [address] Rheumatology Rheumatology 05/29/14
--- OUTSIDE RECORDS SUMMARY | 2023-12-01 18:01 | XMS_ITS ---
Author Name Unknown Organization [facility] Address [address] [place] [address] Care Team Providers Care Window Air Conditioner Installer Name Role Phone Unavailable Unavailable Unavailable Surgery Details Not on file Complications Check Surgery Details section. Procedure Estimated Blood Loss Check Surgery Details section. Procedure Findings Check Surgery Details section. Procedure Specimens Taken Check Surgery Details section.
--- OUTSIDE RECORDS SUMMARY | 2023-12-01 18:01 | XMS_ITS | Clinical Summary ---
Author Name Unknown Organization [facility] Address [address] [place] [address] Care Team Providers Care Publishing Editor Name Role Phone Elsewhere, Pcp Primary Care Provider Unavailabl e Source Comments Patient records contain information from all sites at [facility]. For routine questions regarding patient records, call [phone] during business hours, M-F 8:00 AM - 5:00 PM Central Time. Record requests for emergency care only can be directed to [phone] at any time.[facility] Allergies No known active allergies Medications Medication [...] Overview: Added automatically from request for surgery [id number] Beat Premature Ventricular 04/28/2019 Pain Shoulder Right 03/31/2019 Encounters Date Type Department Care Team Description 09/22/2023 Orders Only Division of Gastroenterology in [place], [place] [address] [place] [address] Rajiv Teran M.D. Genetic Susceptibility To Disease from Last 3 Months Immunizations Name Administration Dates Next Due Influenza Split 06/08/2014 Family History Medical History Relation Name Comments Prostate cancer Brother yumiko Thyroid cancer Brother yumiko Hypertension Father lázaro salas Pancreatic cancer Mother yanelis salas Other cancer Sister jigna Relation Name Status Comments Brother yumiko Father lázaro salas Mother yanelis salas Sister jigna Social History Tobacco Use Types Packs/Day Years [...] How often do you attend chur or gnosticism services? More than 4 times per year 11/14/2022 Do you belong to any clubs o r organizations such as anabaptism groups, unions, fraternal or athletic groups, or [...] Answer Date Recorded PHQ-2 Score 0 11/01/2023 [facility] - Occupational Stress Questionnaire Answer Date [...] place to sleep or slept in a assisted (including now)? No 11/14/2022 Nutrition Answer Date [...] CDT Comprehensive Visit Department of Family Medicine, [facility], in [place], [place] [address], [place] [address] Kenia Millan APRN, C.N.P. [address] [place] [address] Scheduled Procedures Name Priority Associated Diagnoses Date/Ti me ARTHRODESIS WRIST Health Maintenance Due Date Last Done Comments Hepatitis C Screening 1945 DTaP,Tdap,and Td Vaccines (2 - Td or Tdap) 04/25/2022 04/25/2012, 08/11/2007 Depression Screening (Annual PHQ-2) 08/02/2023 Fall Risk Screen (Annual) 08/02/2023 COVID-19 Vaccine (2022-09 4 season) 2023 05/13/2023, 05/04/2022, 10/30/2021, Additional history exists Creatinine Level (Kidney Fun ction Test) 10/08/2023 10/07/2022, 09/18/2021, 08/14/2021, Additional history exists Potassium Level 10/08/2023 10/07/2022, 09/02, 08/14/2021, Additional history exists Sodium Level 10/08/2023 10/07/2022, 08/02, 10/19/2020, Additional history exists Thyroid Stimulating Hormone (TSH) test for thyroid function 10/08/2023 10/07/2022, 08/14/2021, 07/18/2020, Additional history exists Pneumococcal vaccine (65+ years) Completed 12/14/19 15, 04/25/2012 Zoster Vaccines Completed 05/25/2019, 01/30, 10/10/2008 Influenza Vaccine Completed 05/18/2023, , 05/07/2021, Additional history exists Medical Devices Implanted Type Area Upholsterer Helper Device Identifier Shelf Expiration Date Model / Serial / Lot Cmnt Bn Hi Visc Pmma 20 - [id number] Implanted:Qty: 1 on 09/22/2019 by Charanjti Kc M.D. at [facility] Bone Cement Right: Shoulder William 6188-1-0 01 / / Cmnt Bn Hi Visc Pmma 20 - [id number] Implanted:Qty: 1 on 09/22/2019 by Charanjit Kc M.D. at [facility] Bone Cement Right: Shoulder [place] 6188-1-0 / / Description:Wasted: Surgeon Error- attempted to use in patient but hardened too quick with implant Screw Xpode Lock 2.4 X 20mm - Germain [id number] Implanted:Qty: 2 on 09/18/2014 Hardware e.g. pins/screws /rods [employer] Description:Device Manufactu rer - [employer] Device Status Text - HARDWARE-38100. Kwire Ss 4 .054 - Germain [id number] Implanted:Qty: 1 on 09/18/2014 Hardware e.g. pins/screws /rods [employer] Description:Device Manufactu rer [employer]. Device Status Text - HARDWARE-50976. Screw Xpode Lock 2.4 X 14mm - Germain [id number] Implanted:Qty: 2 on 09/18/2014 Hardware e.g. pins/screws /rods [employer] Description:Device Manufactu rer - [employer] Device Status Text - HARDWARE-90471. Screw Xpode Lock 2.4 X 16mm - Germain [id number] Implanted:Qty: 1 on 09/18/2014 Hardware e.g. pins/screws /rods [employer] Description:Device Manufactu rer - [employer] Device Status Text - HARDWARE-91798. Trimed-Plate Fusion Cup 14mm 7h - Germain [id number] Implanted:Qty: 1 on 09/18/2014 Hardware e.g. pins/screws /rods [employer] Description:Device Manufactu rer - [employer].. Device Status Text - [id number]. K-Wire-Ss 4 Smooth .062 - Germain [id number] Implanted:Qty: 2 on 09/18/2014 Hardware e.g. pins/screws /rods [place] Description:Device Manufactu rer - William [employer].. Device Status Text - HARDWARE-871. Screw Xpode Lock 2.4 X 12mm - Germain [id number] Implanted:Qty: 5 on 09/18/2014 Hardware e.g. pins/screws /rods [employer] Description:Device Manufactu rer - [employer] Device Status Text - HARDWARE-16550. Screw Xpode Lock 2.4 X 10mm - Germain [id number] Implanted:Qty: 2 on 09/18/2014 Hardware e.g. pins/screws /rods [employer] Description:Device Manufactu rer - [employer] Device Status Text - HARDWARE-55953. [place] Screw 2 Canc 6.5 X 15 - Germain [id number] Implanted:Qty: 1 on 07/03/2015 Hardware e.g. pins/screws /rods [employer] Description:Device Manufactu rer - [employer]. Device Status Text - HARDWARE-08737. [place] Screw 2 Canc 6.5 X 30 - Germain [id number] Implanted:Qty: 1 on 07/03/2015 Hardware e.g. pins/screws /rods [employer] Description:Device Manufactu rer - [employer]. Device Status Text - HARDWARE-68855. Scrw Pnn Acet Ft 6.5x35 - [id number] Implanted:Qty: 1 on 10/18/2020 by López Ramos M.D. at [facility] Hardware e.g. pins/screws /rods Left: Hip Depuy Synthes 08/01/2030 1217-35- 500 / / [id number] Scrw Pnn Acet Ft 6.5x8 - [id number] Implanted:Qty: 1 on 10/18/2020 by López Ramos M.D. at [facility] Hardware e.g. pins/screws /rods Left: Hip Depuy Synthes 07/01/2030 1217-08- 500 / / [id number] [place] Liner Altrx Neut 36x62 - [id number] Implanted:Qty: 1 on 07/03/2015 Hip Implant Other/Legacy - See Implant Description [employer] Description:Device Manufactu rer - [employer]. Body Location - Other. Right. Device Status Text - HIP IMP-246163. Hip Stem Secur-Fit +Max 12 40 - Germain [id number] Implanted:Qty: 1 on 07/03/2015 Hip Implant Other/Legacy - See Implant Description [place] Description:Device Manufactu rer - William [employer].. Body Location - Other. Right. Device Status Text - HIP IMP-458321. Biolox-Delta Head C-Taper 36mm -2.5 - Germain [id number] Implanted:Qty: 1 on 07/03/2015 Hip Implant Other/Legacy - See Implant Description [place] Description:Device Manufactu rer - William [employer].. Body Location - Other. Right. Device Status Text - HIP IMP-517914. [place] Shell Multi 2 62mm - Germain [id number] Implanted:Qty: 1 on 07/03/2015 Hip Implant Other/Legacy - See Implant Description [employer] Description:Device Manufactu rer - [employer]. Body Location - Other. Right. Device Status Text - HIP IMP-027496. Shll Acet Pnn Mhl Porct 62 - [id number] Implanted:Qty: 1 on 10/18/2020 by López Ramos M.D. at [facility] Hip Implant Left: Hip Depuy Synthes 08/01/2030 1217-20- 062 / / [id number] Lnr Alt 0d 40x62 - [id number] Implanted:Qty: 1 on 10/18/2020 by López Ramos M.D. at [facility] Hip Implant Left: Hip Depuy Synthes 09/01/2025 1221-40- 062 / / [id number] Hip Stm Scr +Max Sz12 22d357 - [id number] Implanted:Qty: 1 on 10/18/2020 by López Ramos M.D. at [facility] Hip Implant Left: Hip William 05/31/2024 6052-124 0S / / [id number] Slv Drl Hip Cocr -2.5 - [id number] Implanted:Qty: 1 on 10/18/2020 by López Ramos M.D. at [facility] Hip Implant Left: Hip William 10/22/2024 19-0325T / / [id number] Fem Hd Blx +0x40 - [id number] Implanted:Qty: 1 on 10/18/2020 by López Ramos M.D. at [facility] Hip Implant Left: Hip William 06/16/2025 6519-1-0 40 / / [id number] Comp Glnd Alt Pgd 50 - [id number] Implanted:Qty: 1 on 09/22/2019 by Charanjit Kc M.D. at [facility] Shoulder Implant Right: Shoulder [employer] 01/05/2023 521-07-2 50 / / [id number] Description:Wasted: Surgeon Error, opened and attempted use Comp Glnd Alt Pgd 50 - [id number] Implanted:Qty: 1 on 09/22/2019 by Charanjit Kc M.D. at [facility] Shoulder Implant Right: Shoulder [employer] 11/22/2022 521-07-2 50 / / [id number] Hum Stm Alt Shrt 16 - [id number] Implanted:Qty: 1 on 09/22/2019 by Charanjit Kc M.D. at [facility] Shoulder Implant Right: Shoulder [employer] 03/01/2024 520-16-0 00 / / [id number] Hum Stm Alt Neut - [id number] Implanted:Qty: 1 on 09/22/2019 by Charanjit Kc M.D. at [facility] Shoulder Implant Right: Shoulder [employer] 06/21/2025 520-07-0 00 / / [id number] Hum Hd Alt Ofst 18x54 - [id number] Implanted:Qty: 1 on 09/22/2019 by Charanjit Kc M.D. at [facility] Shoulder Implant [employer] 06/02/2023 520-54-3 18 / / [id number] Procedures Procedure Name Priority Date/Time Associated Diagnosis Comments EXTI TSH W/REFLEX TO FT4 Routine 10/07/2022 11:38 AM COLLECTION ADMINISTRATOR EXTI BASIC METABOLIC PANEL, S/P Routine 10/07/2022 11:38 AM COLLECTION ADMINISTRATOR from Last 3 Months or Most Recently Relevant to Health Maintenance Advance Directives For more information, please contact: [phone] * Full Code (Latest Code Status on File) Date Activated Date Inactivated Comments 10/18/2020 12:00 PM 10/19/2020 12:55 PM Question Answer Comments Full Code: Discussed Care Teams Publishing Editor Relationship Specialty Start Date End Date Elsewhere, Pcp PCP - General Internal Medicine 11/08/23
[2023-12-01 18:02] LABS: Basophils Absolute Auto 0.04 K/uL (0.00-0.30); Basophils Percent Auto 0.6 % (0.0-3.0); Eosinophils Absolute Auto 0.08 K/uL (0.00-0.50); Eosinophils Percent Auto 1.1 % (0.0-7.0); Hematocrit 43.5 % (37.0-53.0); Hemoglobin* 15.1 gm/dL (13.5-17.5); Lymphocytes Percent Auto 30.9 % (20-44); Mean Corpuscular HGB Conc 35 gm/dL (32-36); Mean Corpuscular Hemoglobin 31 pg (26-34); Mean Corpuscular Volume 88 fL (80-100); Monocytes Percent Auto 6.9 % (0.0-11.0); Neutrophils Absolute Auto 4.32 K/uL (1.7-7.0); Neutrophils Percent Auto 60.5 % (42.0-72.0); Platelet Count* 202 K/uL (140-440); RDW Coefficient of Variation % 11.8 % (11.5-15.5); Red Blood Count 4.94 m/uL (4.30-5.90); Slide Review Reflex No; White Blood Count* 7.13 K/uL (4.50-11.00)
[2023-12-01 18:14] LABS: Chloride* 108 mmol/L (96-114); Sodium* 140 mmol/L (135-149)
[2023-12-01 18:17] LABS: Anion Gap 6 mEq/L (7-15); Blood Urea Nitrogen* 20 mg/dL (7-30); Carbon Dioxide* 26 mmol/L (20-32); Est. Creatinine Clearance* 57.84; Estimated Glomerular Filt Rate 78 ml/min
[2023-12-01 18:18] LABS: Calcium* 9.3 mg/dL (8.4-10.6); Glucose* 104 mg/dL (60-115)
[2023-12-01] MEDS: METOPROLOL TARTRATE 25 MG TABLET PO (18:56)
[2023-12-01] MEDS: ASPIRIN 81 MG TAB.CHEW 324 MG PO (19:07)
== END 2023-12-01 19:19 | disposition home or self-care (01) ==
PROVIDERS: Emergency Provider Emergency Medicine Emergency Medical Services; PCP Family Medicine
DX: I20.89 Other forms of angina pectoris (principal)
CPT/HCPCS: 36415; 80048; 84484; 85025; 93005; 99284; A9270

== ENCOUNTER 2024-10-31 07:48 | Emergency (ER) | payer MEDICARE, BC, SELFPAY ==
--- OUTSIDE RECORDS SUMMARY | 2024-10-31 07:50 | XMS_ITS | Encounter Summary ---
Author Organization [facility] Address [address] [place] [address] Care Team Providers Care Plasterer Apprentice Name Role Phone Elsewhere, Pcp Primary Care Provider Unavailabl e Encounter Details Date Type Department Care Team (Late st Contact Info) Description 10/25/2024 10:42 AM CDT Anesthesia Event [facility] [address] [place] [address] Hany Donahue M.D. [address] [place] [phone] Tylor Hodgson M.D. [address] [place] [phone] Anesthesia Record Procedure Summary Procedure Name Responsible Anesthesiologist Anesthesia Start Time Anesthesia Stop Time 1. Left reverse total shoulder arthroplasty (Enovis, monoblock base plate) 2. Left open biceps tenodesis (Left: Shoulder) Hany Donahue M.D. 10/25/24 1042 10/25/24 1313 Events Date Time Event Comment 10/25/2024 1019 Block Start Documented by n fitoing staff 1023 Block End Documented by n fitoing staff 1042 An Start Machine/Equipme nt Checked Infection Precautions Followed Procedure/Site Verified NPO Status Verified Supine Standard ASA Monitors Applied 1048 An Induction 1051 An Intubation 1052 Turnover to Proceduralist 1127 Proc Start 1132 Anes CS Handoff I, Celsa Priest uda, STARCHMAKER, HOSE CEMENTER, attest that I have reconciled the controlled substances and that I have reviewed all the significant information with the next anesthesia provider assuming care of this patient. 1239 Proc Fin 1255 Turnover to ANE Staff 1255 Airway Removal Criteria Met 1255 Extubation/Airway Removed 1257 an stop data 1313 An End I completed my handoff to the receiving staff during which we 1. Identified the patient 2. Identified the responsible provider 3. Reviewed the pertinent medical history 4. Discussed the surgical course 5. Reviewed intra-op anesthesia management and issues during anesthesia 6. Set expectations for post-procedure period 7. Allowed opportunity for questions and acknowledgement of understanding. Meds Name Total fentanyl injection 50 mcg/mL 100 mcg lidocaine 2% (mg) injection 100 mg succinylcholine 20 mg/mL injection 120 m g phenylephrine 100 mcg/mL injection 1,000 mcg ePHEDrine PF 5 mg/mL syringe injection 2 0 mg ondansetron 4 mg/2 mL injection 4 mg propofol 10 mg/mL infusion 1,118.31 mg propofol 10 mg/mL injection 160 mg BUPivacaine liposome (ExpareL) PF inject ion 1.3% 10 mL BUPivacaine (Marcaine) PF injection 0.5% 10 mL aprepitant (Aponvie) injection 32 mg/4.4 mL (7.2 mg/mL) 32 mg tranexamic acid in NaCl IVPB 1,000 mg (C yklokapron) 1 g tranexamic acid in NaCl IVPB 1,000 mg (C yklokapron) 1 g dexAMETHasone (Decadron) injection 4 mg/ mL 8 mg ceFAZolin (Ancef) injection 1 g/5 mL 2 g Lactated Ringers Free Drip 1,100 mL * Agents No agents on file. * Blood No blood administrations on file. Lines, Drains, and Airways Type Details Placement Removal Peripheral IV Placement Date: 10/01 01/24; Placement Time: 0900; Catheter Size: 20 G; Orientation: Posterior, Right; Location: Hand; Site Prep: Chlorhexidine (Preferred); Technique: Anatomical landmarks; Inserted by: EC; Insertion Attempts: 1 10/25/24 0900 by David Hay Wound 10/25/24; 1130; Humble thorpe; Anterior, Left 10/25/24 1130 by Mitch Tavarez, RNikoN. ETT Placement Date: 10/01 01/24; Placement Time: 1051 (created via procedure documentation); Mask Ventilation: Oral/Nasal airway needed; Technique: Video laryngoscopy; Type: Standard ETT; Single Lumen Tube Size: 7 mm; Cuffed: Yes; Location: Oral; Grade View: Grade 2A; Insertion Attempts: 1; Placement Verification: Bilateral breath sounds, Positive ETCO2, Symmetrical chest wall movement; Removal Date: 10/25/24; Removal Time: 1255 10/25/24 1051 by Elizabeth Luciano APRN, CRNA, DNAP 10/25/24 1255 by Elizabeth Luciano APRN, CRNA, DNAP documented in this encounter Social History Tobacco Use Types Packs/Day Years Used Date Smoking Tobacco: Never Smokeless Tobacco: Never Alcohol Use Standard Drinks/Week Comments Not Currently 0 (1 standard drink = 0.6 oz pur e alcohol) Maybe ten drinks a year [facility] Efficiency Networkities Answer Date Recorded In the past 12 months has e [employer], gas, oil, or water [place] threatened to shut off services in your home? No 02/08/2024 Humiliation, Afraid, Rape, and Kick questionnair e [...] week 11/14/2022 How often do you attend [facility] or buddhist services? More than 4 times per year 11/14/2022 Do you belong to any clubs o r organizations such as nondenominational groups, unions, fraternal or athletic groups, or [...] PHQ-2 Answer Date Recorded PHQ-2 Score 0 [facility]/2024 [facility] Occupational Stress Questionnaire Answer Date Recorded [...] exercise (like a brisk walk)? 0 days 01/28/2024 On average, how many minutes do you engage in exercise at this level? 0 min 01/28/2024 Hunger Vital Sign Answer Date Recorded Within the past 12 months, y ou worried that your food would run out before you got the money to buy more. Never true 02/08/20 24 Within the past 12 months, t he food you bought just didn't last and you didn't have money to get more. Never true 02/08/2024 PRAPARE - Transportation Answer Date Re corded In the past 12 months, has l ack of transportation kept you from medical appointments or from getting medications? No 04/2024 In the past 12 months, has l ack of transportation kept you from meetings, work, or from getting things needed for daily living? No 02/08/2024 Nutrition Answer Date Recorded On average, how many serving s of fruits and vegetables do you eat per day (serving size is equal to 1 cup or approximately the size of a tennis ball)? 0-2 01/28/2024 Dental Answer Date Recorded Dental: Regular Dentist Yes 08/11/19 Employment Answer Date Recorded Employment status Retired 01/28/2024 Housing Stability Answer Date Recorded What is your living situation today? I have a [place] [address] place to live 02/08/2024 Education Answer Date Recorded What is the highest level of school you have completed or the highest degree you have received? 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 - 10/25/2024 1:33 PM CDT Patient: Paul Brown Procedure Summary Date: 10/25/24 Room / Location: [address] / [facility] in [place], [place] Anesthesia Start: 1042 Anesthesia Stop: 1313 Procedure: Left reverse total shoulder arthroplasty. (Left: Shoulder) Diagnosis: Pain Shoulder Left Primary Osteoarthritis Shoulder Left (Pain Shoulder Left [M25.512], Primary Osteoarthritis Shoulder Left [M19.012].) Providers: Lang Linn M.D. Responsible Provider: Hany Donahue M.D. Anesthesia Type: general with pain block ASA Status: 3 Anesthesia Type: general with pain block Last vitals Vitals Value Taken Time BP 112/55 10/25/24 1330 Temp 36.5 ??C 10/25/24 1310 Pulse 75 10/25/24 1333 Resp 16 10/25/24 1333 SpO2 94 % 10/25/24 1333 Vitals shown include unfiled device data. Please reference Vitals flowsheet for most recent vital signs. Anesthesia Post Evaluation Patient Disposition: dismissal Cardiovascular status: hemodynamics (HR & BP) acceptable Respiratory status: patent airway with spontaneous effort Temperature: normothermic Oxygen requirements: room air Level of consciousness: awake Pain score: pain adequately controlled and/or at baseline Post Op nausea/vomiting: none Hydration status: euvolemic Comments: Weaning NC to room air. Awake and conversational. No pain or nausea currently. Notable Events No notable events documented. * Anesthesia Procedure Notes - Elizabeth Luciano APRN, CRNA, DNAP - 10/25/2024 11:35 AM CDTAssociated Order(s): Airway Airway Date/Time: 10/25/2024 10:51 AM Performed by: Elizabeth Luciano APRN, CRNA, DNAP Authorized by: Hany Donahue M.D. Patient location during procedure: OR / Procedure Area PROCEDURE DETAILS: Mask difficulty assessment: oral/nasal airway needed Final airway type: video laryngoscope Laryngeal Manipulation: no Final best view of glottic structures - Cormack/Lehane Score: grade 2A ETT location: oral VL device: glide scope Davenport scope blade size: 4 Tube size: 7 ETT distance at teeth/gum: 22 Oral tube type: standard ETT Cuffed: yes Number of attempt to successful placement: 1 Airway confirmation: bilateral breath sounds, positive ETCO2 and bilateral chest rise Other previous techniques attempted: none PRE PROCEDURE DETAILS: Pre evaluation for airway management: procedure Urgency: elective Preop assessment of probable difficulty: no difficulty anticipated Preoxygenation: bag valve mask SEDATION / ANESTHESIA Anesthesia method: anesthesia POST PROCEDURE DETAILS: Procedure outcome: successful * Anesthesia Procedure Notes - Tylor Hodgson M.D. - 10/25/2024 10:31 AM CDT Associated Order(s): Regional Block Regional Block Date/Time: 10/25/2024 10:31 AM Performed by: Tylor Hodgson M.D. Authorized by: Hany Donahue M.D. Location: OR PROCEDURE DETAILS: Block Indication: post-op pain block Block indication comment: Post-Op pain block at request of surgeon Block Type - Upper extremity: interscalene Positioning: supine Laterality: left Block technique: ultrasound guided Ultrasound image guidance used to localize target, identify at risk structures, and dynamically used to direct therapy to the target. Procedure was performed under sterile conditions.Image(s) acquired and saved Injection technique: single injection Needle type: echogenic Gauge: 22G : 2 Inches. Incremental injection of local anesthetic with aspiration every:5cc Pain with needle advancement or injection of local anesthetic: no Injected Medications: Injection(s), anesthetic agent(s) and/or steroid; See MAR Comments: Comments: Patient consented. R/B/A discussed. Patient sedated and fully responsive. No pain on injection or with needle advancement. Patient tolerated procedure well without apparent complications. UNIVERSAL PROTOCOL All relevant documentation and testing were reviewed and available. All required blood products, implants, devices and or special equipment were made available as applicable. Pre-procedure verification was conducted and the correct site was marked if required. A fire risk and smoke assessment were done as applicable. The procedural time-out to verify correct patient, correct side/site, and procedure was conducted prior to performing the procedure and confirmed in a procedural pause. PRE-PROCEDURE DETAILS: Appropriate hand hygiene, gown, cap, mask, protective eyewear, sterile gloves, skin preparation, sterile drape, and strict aseptic technique were utilized as applicable for the procedure.: yes Skin prep: chlorhexidine / alcohol SEDATION / ANESTHESIA Anesthesia method: local infiltration Local infiltrate type: lidocaine POST-PROCEDURE DETAILS: Procedure completed successfully: successful procedure Notable Events: none ATTESTATION STATEMENT A resident or fellow participated in the procedure, and the storage consultant was present for the entire procedure. Cosigned by Edgar Alrfed D.O. at 10/25/2024 10:50 AM CDT * Anesthesia Preprocedure Evaluation - Hany Donahue M.D. - 10/25/2024 9:55 AM CDT Preprocedure Anesthesia & H&P Assessment Procedure Summary Date/Time: 10/25/24 1024 Procedure: Left reverse total shoulder arthroplasty. 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 Location: [place] [address] / [facility] in [place], [place] Providers: Lang Linn M.D. Pertinent components of the patient's history including current problem list, medical history, surgical history, family history, social history, medications and allergies were reviewed. Present illness and pre-op diagnosis were confirmed. The planned surgery / procedure was verified with the patient / legal guardian. The patient's general health condition remains unchanged RELEVANT COMORBID CONDITIONS CV (+) Beat Premature Ventricular (+) Hypertension Essential Primary ENDO (+) Hypothyroidism GI (+) Gastroesophageal Reflux Disease NOS OBJECTIVE PHYSICAL EXAMINATION Airway (HEENT) Mallampati: III Neck ROM: Full Mouth Opening: >3 cm Cardiovascular Rhythm: Regular Rate: Normal Functional Capacity: >4 METS Pulmonary Pulmonary Assessment: Clear and non labored General / Constitutional Constitutional Assessment: Normal General State of Health:: healthy appearing BMI >32 Neurological Neurologic Assessment: alert and alert and oriented x 3 Dental Dental Assessment: dentition intact ASSESSMENT / PLAN ANESTHESIA PLAN ASA: 3 Anesthesia Plan: general with pain block 79 y/o undergoing L Total Shoulder Arthroplasty. Hx CAD s/p cath 01/2024, reassuring with 20% mid lad occlusion. METS >4. Hx of GERD, stricture, HTN, OA, HLD, Hypothyroidism. Consented to blood transfusions. Consented to regional anesthesia after risks/benefits/alternatives. Plan: GETA, ISC with Exparel. Patient seen and allergies reviewed, anesthesia plan and risks discussed directly with patient /legal guardian or through an medical interpreter. Risks/Benefits/Alternatives of Blood transfusion discussed with patient / legal guardian, includingan opportunity to ask questions and/or decline some or all transfusion therapies. The patient / legal guardian consented to the use of all blood products, as deemed medically necessary Approval to Proceed: approved for anesthesia documented in this encounter Plan of Treatment Upcoming Encounters Date Type Department Care Team (Late st Contact Info) Description 11/09/2024 11:45 AM CDT Appointment Department of Radiology, [facility], in [place], [place] [address] [place] [address] Christina Duong APRN, C.N.P., M.S.N. [address] [place] [phone] 11/09/2024 1:00 PM CDT Office Visit Department of Orthopedic Surgery in [place], [place] [address] [place] [address] Christina Duong APRN C.N.P., M.S.N. [address] [place] [phone] 12/04/2024 9:30 AM CDT Office Visit Department of Family Medicine, [facility], in [place], [place] [address] [place] [phone] Kenia Millan APRN, C.N.PNiko [address] [place] [phone] Scheduled Procedures Name Priority Associated Diagnoses Date/Ti me ARTHRODESIS WRIST documented as of this encounter Procedures Procedure Name Priority Date/Time Associated Diagnosis Comments LDA ANE ENDOTRACHEAL AIRWAY Routine 10/25/2024 10:51 AM CDT SC INJ ANES BRACHIAL PLEX W GUIDANCE Routine 10/25/2024 10:31 AM CDT documented in this encounter Results * LDA ANE ENDOTRACHEAL AIRWAY (10/25/2024 10:51 AM CDT) Narrative Elizabeth Luciano APRN, HOSE CEMENTER, DNAP - 10/25/2024 10:51 AM CDT Elizabeth Luciano APRN, CRNA, DNAP 10/25/2024 11:36 AM Airway Date/Time: 10/25/2024 10:51 AM Performed by: Elizabeth Luciano APRN, CRNA DNAShayy Authorized by: Hany Donahue M.D. Patient location during procedure: OR / Procedure Area PROCEDURE DETAILS: Mask difficulty assessment: oral/nasal airway needed Final airway type: video laryngoscope Laryngeal Manipulation: no Final best view of glottic structures - Cormack/Lehane Score: grade 2A ETT location: oral VL device: glide scope Davenport scope blade size: 4 Tube size: 7 ETT distance at teeth/gum: 22 Oral tube type: standard ETT Cuffed: yes Number of attempt to successful placement: 1 Airway confirmation: bilateral breath sounds, positive ETCO2 and bilateral chest rise Other previous techniques attempted: none PRE PROCEDURE DETAILS: Pre evaluation for airway management: procedure Urgency: elective Preop assessment of probable difficulty: no difficulty anticipated Preoxygenation: bag valve mask SEDATION / ANESTHESIA Anesthesia method: anesthesia POST PROCEDURE DETAILS: Procedure outcome: successful Hany Donahue M.D. ANESTHESIA ORDERABLES Final R esult * SC INJ ANES BRACHIAL PLEX W GUIDANCE (10/25/2024 10:31 AM CDT) Narrative Edgar Alfred D.O. - 10/25/2024 10:31 AM CDT Edgar Alfred D.O. 10/25/2024 10:50 AM Regional Block Date/Time: 10/25/2024 10:31 AM Performed by: Tylor Hodgson M.D. Authorized by: Hany Donahue M.D. Location: OR PROCEDURE DETAILS: Block Indication: post-op pain block Block indication comment: Post-Op pain block at request of surgeon Block Type - Upper extremity: interscalene Positioning: supine Laterality: left Block technique: ultrasound guided Ultrasound image guidance used to localize target, identify at risk structures, and dynamically used to direct therapy to the target. Procedure was performed under sterile conditions.Image(s) acquired and saved Injection technique: single injection Needle type: echogenic Gauge: 22G : 2 Inches. Incremental injection of local anesthetic with aspiration every:5cc Pain with needle advancement or injection of local anesthetic: no Injected Medications: Injection(s), anesthetic agent(s) and/or steroid; See MAR Comments: Comments: Patient consented. R/B/A discussed. Patient sedated and fully responsive. No pain on injection or with needle advancement. Patient tolerated procedure well without apparent complications. UNIVERSAL PROTOCOL All relevant documentation and testing were reviewed and available. All required blood products, implants, devices and or special equipment were made available as applicable. Pre-procedure verification was conducted and the correct site was marked if required. A fire risk and smoke assessment were done as applicable. The procedural time-out to verify correct patient, correct side/site, and procedure was conducted prior to performing the procedure and confirmed in a procedural pause. PRE-PROCEDURE DETAILS: Appropriate hand hygiene, gown, cap, mask, protective eyewear, sterile gloves, skin preparation, sterile drape, and strict aseptic technique were utilized as applicable for the procedure.: yes Skin prep: chlorhexidine / alcohol SEDATION / ANESTHESIA Anesthesia method: local infiltration Local infiltrate type: lidocaine POST-PROCEDURE DETAILS: Procedure completed successfully: successful procedure Notable Events: none ATTESTATION STATEMENT A resident or fellow participated in the procedure, and the storage consultant was present for the entire procedure. Hany Donahue M.D. PROCEDURE/MINOR SURGICAL ORDE JIMMIE Final Result documented in this encounter Visit Diagnoses Not on filedocumented in this encounter Administered Medications Inactive Administered Medications - up to 3 most recent administrations Medication Order MAR Action Action Date Dose Rate Site aprepitant injection (Aponvie) intravenous, As needed, Starting on Wed10/25/24 at 1047, Anesthesia Intra-op Given 10/25/2024 10:47 AM CDT 32 mg BUPivacaine liposome (PF) 266 mg/20 mL (13.3 mg/mL) injection (ExpareL) infiltration, As needed, Starting on Wed10/25/24 at 1022, Anesthesia Intra-op Given 10/25/2024 10:22 AM CDT 10 mL BUPivacaine PF 0.5 % (5 mg/mL) injection (Marcaine) peripheral nerve block, As needed, Starting on Wed10/25/24 at 1022, Anesthesia Intra-op Given 10/25/2024 10:23 AM CDT 3 mL Given 10/25/2024 10:22 AM CDT 5 mL Given 10/25/2024 10:21 AM CDT 2 mL ceFAZolin injection (Ancef) intravenous, As needed, Starting on Wed10/25/24 at 1110, Anesthesia Intra-op Given 10/25/2024 11:10 AM CDT 2 g dexAMETHasone injection (Decadron) intravenous, As needed, Starting on Wed10/25/24 at 1106, Anesthesia Intra-op Given 10/25/2024 11:06 AM CDT 8 mg ePHEDrine (PF) injection intravenous, As needed, Starting on Wed10/25/24 at 1117, Anesthesia Intra-op Given 10/25/2024 12:10 PM CDT 2.5 mg Given 10/25/2024 11:45 AM CDT 2.5 mg Given 10/25/2024 11:36 AM CDT 5 mg fentaNYL injection (Sublimaze) intravenous, As needed, Starting on Wed10/25/24 at 1049, Anesthesia Intra-op Given 10/25/2024 10:49 AM CDT 100 mc g Lactated Ringer's intravenous, Continuous Infusion: Per Instructions PRN, Starting on Wed10/25/24 at 1048, Anesthesia Intra-op New Bag 10/25/2024 11:52 AM CDT New Bag 10/25/2024 10:48 AM CDT lidocaine (PF) (cardiac) injection intravenous, As needed, Starting on Wed10/25/24 at 1049, Anesthesia Intra-op Given 10/25/2024 10:49 AM CDT 100 mg ondansetron (PF) injection (Zofran) intravenous, As needed, Starting on Wed10/25/24 at 1215, Anesthesia Intra-op Given 10/25/2024 12:15 PM CDT 4 mg phenylephrine injection intravenous, As needed, Starting on Wed10/25/24 at 1101, Anesthesia Intra-op Given 10/25/2024 12:00 PM CDT 50 mcg Given 10/25/2024 11:52 AM CDT 50 mcg Given 10/25/2024 11:47 AM CDT 100 mcg propofol 10 mg/mL infusion (Diprivan) intravenous, Continuous Infusion: Per Instructions PRN, Starting on Wed10/25/24 at 1050, Anesthesia Intra-op Rate/Dose Change 10/25/2024 12:19 PM CDT 70 mcg/kg/min 44.436 mL/hr Rate/Dose Change 10/25/2024 12:03 PM CDT 80 mcg/kg/min 50. 784 mL/hr Rate/Dose Change 10/25/2024 11:52 AM CDT 90 mcg/kg/min 57. 132 mL/hr propofoL injection (Diprivan) intravenous, As needed, Starting on Wed10/25/24 at 1049, Anesthesia Intra-op Given 10/25/2024 10:49 AM CDT 160 mg succinylcholine (PF) injection (Anectine) intravenous, As needed, Starting on Wed10/25/24 at 1050, Anesthesia Intra-op Given 10/25/2024 10:50 AM CDT 120 mg tranexamic acid in NaCl IVPB 1,000 mg (Cyklokapron) 1,000 mg (1 g), intravenous, at 300 mL/hr, Administer over 20 Minutes, Once, On Wed10/25/24 at 1130, For 1 dose, Intra-Op, Administer in OR upon induction Given 10/25/2024 11:05 AM CDT 1 g tranexamic acid in NaCl IVPB 1,000 mg (Cyklokapron) 1,000 mg (1 g), intravenous, at 300 mL/hr, Administer over 20 Minutes, Once, On Wed10/25/24 at 1130, For 1 dose, Intra-Op, Administer in OR just before dropping tourniquet Given 10/25/2024 12:15 PM CDT 1 g documented in this encounter Care Teams Plasterer Apprentice Relationship Specialty Start Date End Date Elsewhere, Pcp PCP - General Internal Medicine 11/08/23 documented as of this encounter
--- OUTSIDE RECORDS SUMMARY | 2024-10-31 07:50 | XMS_ITS | Encounter Summary ---
Author Organization [facility] Address [address] [place] [phone] Care Team Providers Care Social And Political Studies Professor Name Role Phone Elsewhere, Pcp Primary Care Provider Unavailabl e Reason for Visit * Reason Comments Pre-op Exam * Outpatient (Routine) - Closed Specialty Diagnoses / Procedures Referred By Chato austin Referred To Contact Orthopedic Surgery Floyd Burger MPAS, P.A.-C., M.S. [address] [place] [phone] Phone: tel: fax: Lang Linn M.D. [address] [place] [phone] Phone: tel: fax: Referral ID Status Reason Start Date Expiration Date Visits Re quested Visits Authorized [id number] Closed 07/27/2024 01/26/2026 1 1 Encounter Details Date Type Department Care Team (Late st Contact Info) Description 10/24/2024 1:00 PM CDT Office Visit Department of Orthopedic Surgery in [place], [place] [address] [place] [phone] Lang Linn M.D. [address] [place] [phone] Pain Shoulder Left (Primary Dx) Social History Tobacco Use Types Packs/Day Years Used Date Smoking Tobacco: Never Smokeless Tobacco: Never Alcohol Use Standard Drinks/Week Comments Not Currently 0 (1 standard drink = 0.6 oz pur e alcohol) Maybe ten drinks a year [facility] Utilities Answer Date Recorded In the past 12 months has th e electric, gas, oil, or water company threatened to shut off services in your [...] week 11/14/2022 How often do you attend [facility] or rastafari services? 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 - 10/24/2024 1:00 PM CDT SUBJECTIVE REASON FOR VISIT Paul Brown is a 79 y.o. male who presents to the office today for a preoperative consultation in anticipation of left total shoulder arthroplasty/arthroscopic rotator cuff repair with Dr. Lang Linn. Pain reported: Site 1 Pain Score: 1, Pain Location: Shoulder, Pain Orientation: Left, (10/24/24 1253 : Clotilde Almazan) HISTORY OF PRESENT ILLNESS Paul Brown is seen back today in regards to his left shoulder problems. He continues to have enough pain and limitations not managed well by conservative measures to warrant proceeding with surgery as planned. PERTINENT PAST MEDICAL HISTORY #1 Pain Shoulder Right #2 Beat Premature Ventricular #3 Primary Osteoarthritis Hip Left #4 Abnormal Stress Test #5 Hypertension Essential Primary CURRENT MEDICATIONS Scheduled Meds: Continuous Infusions:No current facility-administered medications for this visit. PRN Meds:. OBJECTIVE Vital Signs vitals were not taken for this visit. PHYSICAL EXAMINATION Ortho Exam General: Awake and alert. No acute distress. Skin: Skin overlying the left shoulder is intact. Neurologic: left upper extremity has good sensation. Vascular: left upper extremity is warm and is well perfused. DIAGNOSTICS Labs: Preoperative CBC and BMP were reviewed. ASSESSMENT / PLAN Management options have been discussed with Paul Brown. At this point he is having a difficult time with the shoulder and would like to proceed with left total shoulder arthroplasty as planned with Dr. Linn. The patient understands that the risks include but are not limited to , medical problems, infection, bleeding, blood clot problems, nerve damage, dislocation problems, prosthetic loosening, wearor failure, or ongoing pain. Discussed the potential for overlapping surgery and how we manage that effectively. Discussed some of the potential risks of opioid medications and strategies used to reduce those risks. Preoperative instructions were reviewed and consent was obtained. The patient had no further questions prior to proceeding. * Lang Linn M.D. - 10/24/2024 1:00 PM CDT Images from the original note were not included. Narrative: History of Present Illness Mr. Paul Brown is a 79 year old male who presents for a reverse total shoulder replacement. He is scheduled for a reverse total shoulder replacement due to significant wear and tear of the bone in his shoulder, which has persisted since his last visit in July. This condition has necessitated surgical intervention. Physical Exam Unchanged Assessment & Plan Left shoulder osteoarthritis Scheduled for reverse total shoulder arthroplasty due to advanced osteoarthritis with significant bone degeneration. Explained risks including infection, stiffness, nerve or vascular injury, and other medical complications. - Perform reverse total shoulder arthroplasty on the left shoulder. - Instruct to wear a sling for two weeks postoperatively. - Initiate range of motion exercises after two weeks. - Advise use of cryotherapy for analgesia postoperatively. CLINICAL OUTCOME ASSESSMENTS: PROMIS: 07/24/2024 09/28/2024 10/17/2024 Sports Medicine PROMIS-CAT: Pain interference 67 (moderate) 64 (moderate) PROMIS-CAT: Physical function 39 (moderate dysfunction) 41 (mild dysfunction) No data to display No data to display No data to display documented in this encounter Plan of Treatment Upcoming Encounters Date Type Department Care Team (Late st Contact Info) Description 11/09/2024 11:45 AM CDT Appointment Department of Radiology, [facility] in [place], [place] [address] [place] [phone] Christina Duong APRN, C.N.P., M.S.N. [address] [place] [phone] 11/09/2024 1:00 PM CDT Office Visit Department of Orthopedic Surgery in [place], [place] [address] [place] [phone] Christina Duong APRN, C.N.P., M.S.N. [address] [place] [address] [place] [phone] 12/04/2024 9:30 AM CDT Office Visit Department of Family Medicine, [facility], in [place], [place] [address] [place] [phone] Kenia Millan APRN, C.N.P. [address], [place] [phone] Scheduled Procedures Name Priority Associated Diagnoses Date/Ti me ARTHRODESIS WRIST documented as of this encounter Visit Diagnoses Diagnosis Pain Shoulder Left- Primary documented in this encounter Care Teams Social And Political Studies Professor Relationship Specialty Start Date End Date Elsewhere, Pcp PCP - General Internal Medicine 11/08/23 documented as of this encounter
--- OUTSIDE RECORDS SUMMARY | 2024-10-31 07:50 | XMS_ITS | Encounter Summary ---
Author Organization [facility] Address [address] [place] [phone] Care Team Providers Care Court Transcriber Name Role Phone Elsewhere, Pcp Primary Care Provider Unavailabl e Reason for Visit * Reason Onset Date Comments Pre-visit Intake 10/20/2024 * Appointment Request (Routine) - Authorized Specialty Diagnoses / Procedures Referred By Contac t Referred To Contact Orthopedic Surgery Referral ID Status Reason Start Date Expiration Date V isits Requested Visits Authorized [id number] Authorized 08/01/2024 08/01/2025 1 1 Encounter Details Date Type Department Care Team (Latest Contact Info) Description 10/20/2024 8:30 AM CDT Clinical Communication Virtual Review in [place], [place] 200 [place] [phone] Pre-visit Intake Social History Tobacco Use Types Packs/Day Years Used Date Smoking Tobacco: Never Smokeless Tobacco: Never Alcohol Use Standard Drinks/Week Comments Not Currently 0 (1 standard drink = 0.6 oz pur e alcohol) Maybe ten drinks a year [facility] Utilities Answer Date Recorded In the past 12 months has e [employer] gas, oil, or water [employer] threatened to shut off services in your [...] How often do you attend chur or taoist services? More than 4 times per year 11/14/2022 Do you belong to any clubs o r organizations such as jewish groups, unions, fraternal or athletic groups, or [...] Answer Date Recorded PHQ-2 Score 0 01/28/2024 [facility] - Occupational [...] your living situation today? I have a [facility] place to live 02/08/2024 Education Answer Date Recorded What is the highest level of school you have completed or the highest degree you have received? 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 200 [place] [phone] 11/09/2024 1:00 PM CDT Office Visit Department of Orthopedic Surgery in [place], [place] [address] [place] [phone] Christina Duong APRN, C.N.P., M.S.N. [address] [place] [address] 12/04/2024 9:30 AM CDT Office Visit Department of Family Medicine, [facility], in [place], [place] [address] [place] [phone] Kenia Millan APRN, C.N.P. [address] [place] [phone] Scheduled Procedures Name Priority Associated Diagnoses Date/Ti me ARTHRODESIS WRIST documented as of this encounter Visit Diagnoses Not on filedocumented in this encounter Care Teams Court Transcriber Relationship Specialty Start Date End Date Elsewhere, Pcp PCP - General Internal Medicine 11/08/23 documented as of this encounter
--- OUTSIDE RECORDS SUMMARY | 2024-10-31 07:50 | XMS_ITS | Encounter Summary ---
Author Organization [facility] Address [address] [place] [address] Care Team Providers Care Flatware Maker Name Role Phone Elsewhere, Pcp Primary Care Provider Unavailabl e Encounter Details Date Type Department Care Team (Latest Contact Info) Description 10/24/2024 10:55 AM CDT - 10/24/2024 11:59 PM CDT Hospital Encounter Department of Laboratory Medicine and Pathology, [facility] in [place], [place] [address] [place] [address] Elsy Camilo, RAJESH, P.A.-C. [address] [place] [phone] Preanesthetic Medical Exam Discharge Disposition: Home or Self Care Social History Tobacco Use Types Packs/Day Years Used Date Smoking Tobacco: Never Smokeless Tobacco: Never Alcohol Use Standard Drinks/Week Comments Not Currently 0 (1 standard drink = 0.6 oz pur e alcohol) Maybe ten drinks a year [facility] Utilities Answer Date Recorded In the past 12 months has e [employer] gas, oil, or water [employer] threatened to shut off services in your [...] How often do you attend chur or adventism services? More than 4 times per year 11/14/2022 Do you belong to any clubs o r organizations such as baptism groups, unions, fraternal or athletic groups, or [...] Answer Date Recorded PHQ-2 Score 0 01/28/2024 [facility] Occupat ional Health - [...] your living situation today? I have a [facility] place to live 02/08/2024 Education Answer Date Recorded What is the highest level of school you have completed or the highest degree you have received? 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 For pain - this medication may be purchased over the counter 10/25/2024 atorvastatin (Lipitor) 20 mg tablet Take 1 tablet (20 mg total) by mouth daily. 30 tablet 11 02/21/2024 hydrocortisone (HYTONE) 2.5 % creamIndications :Dermatitis Seborrheic Apply 1 application topically 2 (two) times a day as needed (Rash). Apply to ears, mix 1:1 with ketoconazole cream 30 g 6 02/11/2022 ketoconazole (NIZORAL) 2 % creamIndications :Dermatitis Seborrheic APPLY TOPICALLY TO EARS TWICE DAILY 30 g 6 03/09/2022 levothyroxine (SYNTHROID, LEVOTHROID) 75 mcg tablet Take 75 mcg by mouth. 08/21/2021 losartan (COZAAR) 50 mg tablet TAKE 1 TABLET(50 MG) BY MOUTH EVERY DAY 09/18/2021 metoprolol succinate (TOPROL-XL) 50 mg 24 hr tablet Take 50 mg by mouth every evening. 07/18/2020 oxyCODONE (Roxicodone) 5 mg immediate release tabletIndication s:Acute Pain Take 1-2 tablets (5-10 mg total) by mouth every 4 (four) hours as needed for pain. Take 1 tablet (5 mg) for pain 3-6 or take 2 tablets (10 mg) for pain 7-10 20 tablet 10/25/2024 3:08 PM CDT 10/25/2024 sennosides-docus ate sodium (Senna with Docusate Sodium) 8.6-50 mg per tablet Take 1 tablet by mouth 2 (two) times a day. For constipation - this medication may be purchased over the counter 10/25/2024 Slo-Niacin 500 mg ER tablet 05/03/2022 documented as of this encounter Plan of Treatment Upcoming Encounters Date Type Department Care Team (Late st Contact Info) Description 11/09/2024 11:45 AM CDT Appointment Department of Radiology, [facility], in [place], [place] [address] [place] [phone] Christina Duong APRN, C.N.P., M.S.N. [address] [place] [phone] 11/09/2024 1:00 PM CDT Office Visit Department of Orthopedic Surgery in [place], [place] [address] [place] [phone] Christina Duong APRN, C.N.P., M.S.N. [address] [place] [address] 12/04/2024 9:30 AM CDT Office Visit Department of Family Medicine, [facility], in [place], [place] [address] [place] [phone] Kenia Millan APRN, C.N.P. [address] [place] [phone] Scheduled Procedures Name Priority Associated Diagnoses Date/Ti me ARTHRODESIS WRIST documented as of this encounter Procedures Procedure Name Priority Date/Time Associated Diagnosis Comments TYPE AND SCREEN Routine 10/24/2024 11:16 AM CDT Preanesthetic Medical Exam BASIC METABOLIC PANEL, S/P Routine 10/24/2024 11:16 AM CDT Preanesthetic Medical Exam documented in this encounter Results * (ABNORMAL) Basic Metabolic Panel (10/24/2024 11:16 AM CDT) Potassium, S 4.8 3.6 - 5.2 mmol/L 10/24/2024 12:29 PM CDT DTL Sodium, S 142 135 - 145 mmol/L 10/24/2024 12:29 PM CDT DTL Chloride, S 108(H) 98 - 107 mmol/L 10/24/2024 12:29 PM CDT DTL Bicarbonate, S 24 22 - 29 mmol/L 10/24/2024 12:29 PM CDT DTL Anion Gap 10 7 - 15 10/24/2024 12:29 PM CDT DTL BUN (Blood Urea Nitrogen), S 16 8 - 24 mg/dL 10/24/2024 12:29 PM CDT DTL Creatinine 1.19 0.74 - 1.35 mg/dL 10/24/2024 12:29 PM CDT DTL Estimated GFR (eGFR) 63 >=60 mL/min/BSA 10/24/2024 12:29 PM CDT DTL Comment: Estimated GFR calculated using the 2020 CKD_EPI creatinine equation. Calcium, Total, S 9.4 8.8 - 10.2 mg/dL 10/24/2024 12:29 PM CDT DTL Glucose, S 94 70 - 140 mg/dL 10/24/2024 12:29 PM CDT DTL Blood (Blood, Venous) 10/24/2024 11:16 AM CDT 10/24/2024 12:01 PM CDT Elsy MENA, P.A.-C. LAB BLOOD ADD-ON Final Result [facility] [address] [place] [address], [facility] DTL [facility] [address] [place] [address] * Type and Screen (with Reflex Antibody ID) (10/24/2024 11:16 AM CDT) ABORh O Neg Not applicable 10/24/2024 4:59 PM CDT ETRM Antibody Screen Negative Negative 10/24/2024 5:09 PM CDT ETRM Type & Screen Expiration 12/22/2024 23:59 10/24/2024 4:59 PM CDT ETRM Testing Location [place] DEFAULT 10/24/2024 3:51 PM CDT ETRM Blood (Blood, Venous) 10/24/2024 11:16 AM CDT 10/24/2024 3:51 PM CDT Elsy MENA, P.A.-C. LAB BLOOD BANK TE ST ORDERABLES Final Result [facility] [address] [place] [address], [facility] ETRM [facility] [address] [place] [address] documented in this encounter Visit Diagnoses Diagnosis Preanesthetic Medical Exam documented in this encounter Care Teams Flatware Maker Relationship Specialty Start Date End Date Elsewhere, Pcp PCP - General Internal Medicine 11/08/23 documented as of this encounter
--- OUTSIDE RECORDS SUMMARY | 2024-10-31 07:50 | XMS_ITS | Encounter Summary ---
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 [address] [place] [phone] Phone: tel: fax: [facility] Referral ID Status Reason Start Date Expiration Date V isits Requested Visits Authorized [id number] Authorized 10/25/2024 01/25/2026 1 1 * Outpatient (Routine) - Closed Specialty Diagnoses / Procedures Referred By Chato t Referred To Contact Christina Duong APRN, C.N.P., M.S.N. [address] [place] [phone] Phone: tel: fax: [facility] Referral ID Status Reason Start Date Expiration Date Visits Re quested Visits Authorized [id number] Closed 10/25/2024 04/26/2026 1 1 * Outpatient (Routine) - Authorized Specialty Diagnoses / Procedures Referred By Chato t Referred To Contact Orthopedic Surgery Christina Duong APRN, C.N.P., M.S.N. [address] [place] [phone] Phone: tel: fax: [facility] Referral ID Status Reason Start Date Expiration Date V isits Requested Visits Authorized [id number] Authorized 10/25/2024 04/26/2026 1 1 Scheduling Instructions Christina * Outpatient (Routine) - Authorized Specialty Diagnoses / Procedures Referred By Contac t Referred To Contact Orthopedic Surgery Christina Duong APRN, C.N.P., M.S.N. [address] [place] [phone] Phone: tel: fax: Lang Linn M.D. [address] [place] [phone] Phone: tel: fax: Referral ID Status Reason Start Date Expiration Date V isits Requested Visits Authorized [id number] Authorized 10/25/2024 04/26/2026 1 1 * Outpatient (Routine) - Authorized Specialty Diagnoses / Procedures Referred By Contac t Referred To Contact Orthopedic Surgery Christina Duong APRN, C.N.P., M.S.N. [address] [place] [phone] Phone: tel: fax: [facility] Referral ID Status Reason Start Date Expiration Date V isits Requested Visits Authorized [id number] Authorized 10/25/2024 04/26/2026 1 1 Scheduling Instructions Chritsina @1 Encounter Details Date Type Department Care Team (Latest Contact Info) Description 10/25/2024 8:00 AM CDT - 10/25/2024 4:50 PM CDT Hospital Encounter Outpatient Surgery Unit in [place], [place] [address] [place] [phone] Lang Linn M.D. 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 More than 4 times per year 11/14/2022 Do you belong to any clubs o r organizations such as religion groups, unions, fraternal or athletic groups, or [...] Answer Date Recorded PHQ-2 Score 0 01/28/2024 [facility] - Occupational Stress Questionnaire Answer [...] PM CDT Legal Sex Male 9:15 AM [employer] A[employer] Gender Identity Male 11/14/2022 2:04 PM CDT Sexual Orientation Straight 12/20/2017 2: 04 PM CDT documented as of this encounter Last Filed Vital Signs Vital Sign Reading Time Taken Comments Blood Pressure 144/72 10/25/2024 3:43 PM CDT Pulse 76 10/25/2024 3:43 PM CDT Temperature 36.5 C (97.7 F) 10/25/2024 3:43 PM CDT Respiratory Rate 16 10/25/2024 3:43 PM CDT Oxygen Saturation 95% 10/25/2024 3:43 PM CDT Inhaled Oxygen Concentration - - Weight 106 kg (233 lb 4 oz) 10/25/2024 8:57 AM C DT Height 180 cm (5' 10.87) 10/25/2024 8:57 AM CDT Body Mass Index 32.65 10/25/2024 8:57 AM CDT documented in this encounter Medications at Time of Discharge [...] tablet 05/03/2022 documented as of this encounter OR Notes * Op Note - Lang Linn M.D. - 10/25/2024 11:27 AM CDT Pre-op Diagnosis Pain Shoulder Left Primary Osteoarthritis Shoulder Left Post-op Diagnosis Pain Shoulder Left Primary Osteoarthritis Shoulder Left Medical Cost Consultant A first sampler actively participated and was necessary for one or more of the following: opening, exposure and visualization, maintaining hemostasis, wound closure resulting in its safe and expeditious completion. Findings As expected Complications None Operative Note Narrative CONSENT We reviewed operative and non-operative treatment options in extensive detailing, including a discussion of the risks, benefits, and alternatives to surgical and nonsurgical management. We discussed the risks of medical complications, anesthesia related complications, device or implant related compl ications, infection, stiffness, pain, arthritis, need for further surgery, the risk of blood clots,strokes, and even . We discussed overlapping surgery, and how [facility] manages this. The patient agreed and wished to proceed. Written informed consent was placed in the chart. DESCRIPTION OF PROCEDURE The patient was seen in the preoperative holding area. Surgical extremity was site marked. The patient was brought to the operating room, induced with a general anesthetic, positioned in the beach chair position. All bony prominences were padded. The surgical extremity was prepped and draped in theusual sterile fashion. We completed a preprocedural pause, including patient, site, and side verification, as well as verification of implants in the room EXPOSURE: We began with a deltopectoral approach. We mobilized the deltoid superior laterally in the pectoralis inferomedially We exposed the anterior aspect of the humerus BICEPS TENODESIS: The biceps tendon had substantial fluid around it. It was tenodesed to the upper border of the pectoralis with two #1 Vicryl sutures HUMERAL EXPOSURE: The subscap was thin but intact It was taken down with a peel. We circumferentially exposed the proximal humerus including subdeltoid space and the medial aspect of the humerus The rotator cuff was thin but intact We made our humeral neck cut reamed and broached for our humeral component. GLENOID EXPOSURE: We mobilized the subscapularis off the rotator interval We circumferentially exposed the glenoid There was mild posterior superior bone loss We placed our centering pin reamed and placed our base plate without difficulty We placed the mono block base plate The glenosphere was impacted We trialed the shoulder and were happy with stability SUBSCAPULARIS REPAIR: We opened the real components and impacted them into position We repaired the subscapularis with three #5 [employer] The wound was copiously irrigated We used adjuvant peroxide for antimicrobial prophylaxis The wound was closed in layers Patient was taken the postop recovery unit in stable condition All counts were correct at the completion of the procedure They will be on the accelerated protocol postoperatively Lang Linn M.D. documented in this encounter Plan of Treatment Upcoming Encounters Date Type Department Care Team (Late st Contact Info) Description 11/09/2024 11:45 AM CDT Appointment Department of Radiology, [facility], in [place], [place] [address] [place] [phone] Christina Duong APRN, C.N.P., M.S.N. [address] [place] [phone] 11/09/2024 1:00 PM CDT Office Visit Department of Orthopedic Surgery in [place], [place] [address] [place] [phone] Christina Duong APRN, C.N.P., M.S.N. 200 [place] [phone] 12/04/2024 9:30 AM CDT Office Visit Department of Family Medicine, [facility], in [place], [place] [address] [place] [phone] Kenia Millan APRN, C.N.P. 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 Expected: 01/24/2025, Expires: 10/25/2025 Scheduled Procedures Name Priority Associated Diagnoses Date/Ti me ARTHRODESIS WRIST Scheduled Referrals Name Type Priority Associated Diagnoses Order Schedule Orthopedic Surgery office visit (clinic) Outpatient Referral Routine Expected: 11/09/2024, Expires: 01/25/2026 Orthopedic Surgery Post Op (clinic) Outpatient Referral Routine Expected: 12/05/2024, Expires: 01/25/2026 Orthopedic Surgery office visit (clinic) Outpatient Referral Routine Expected: 01/24/2025 (Approximate), Expires: 01/25/2026 NonF2F phone visit Outpatient Referral Routine Expected: 10/26/2024, Expires: 01/25/2026 documented as of this encounter Procedures Procedure Name Priority Date/Time Associated Diagnosis Comments DX SHOULDER LEFT 1 VIEW RAD - Routine (most inpatients and all outpatients) 10/25/2024 1:07 PM CDT ARTHROPLASTY TOTAL REVERSE SHOULDER 10/25/2024 10:23 AM CDT Pain Shoulder Left Primary Osteoarthritis Shoulder Left documented in this encounter Results * DX Shoulder Left 1 View (10/25/2024 1:07 PM CDT) Anatomical Region Laterality Modality Upper Extremity, Shoulder, M usculoskeletal RST LOS, Musculoskeletal ARZ LOS, Muskuloskeletal FLA LOS Left Digit al Radiography Impressions 10/25/2024 1:22 PM CDT Left reverse TSA. Negative for PO purposes. Narrative 10/25/2024 1:22 PM CDT EXAM: DX SHOULDER LEFT 1 VIEW Procedure Note Bella Block M.D. - 10/25/2024 EXAM: DX SHOULDER LEFT 1 VIEW IMPRESSION: Left reverse TSA. Negative for PO purposes. Lang Linn M.D. 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- Primary documented in this encounter Administered Medications Inactive Administered Medications - up to 3 most recent administrations Medication Order MAR Action Action Date Dose Rate Site acetaminophen tablet 1,000 mg (TylenoL) 1,000 mg, oral, Once, On Wed10/25/24 at 1000, For 1 dose, Pre-Op Given 10/25/2024 9:37 AM CDT 1,000 mg acetaminophen tablet 1,000 mg (TylenoL) 1,000 mg, oral, Every 6 hours, First dose on Wed10/25/24 at 1615, PACU & Post-Op Given 10/25/2024 4:30 PM CDT 1,000 mg fentaNYL injection 50 mcg (Sublimaze) 50 mcg, intravenous, Once as needed, sedation, Starting on Wed10/25/24 at 0936, For 1 dose, Pre-Op, IV Push, Initial dose Given 10/25/2024 10:10 AM CDT 50 mcg Lactated Ringer's 20 mL/hr, intravenous, Continuous, Starting on Wed10/25/24 at 1200, PACU & Post-Op Continued from OR 10/25/2024 1:32 PM CDT 20 mL/hr 20 mL/hr midazolam (PF) injection 1 mg (Versed) 1 mg, intravenous, Every 2 min PRN, sedation, RASS 0, Starting on Wed10/25/24 at 0936, For 3 hours, Pre-Op, May repeat every 2 minutes for a maximum of 5 mg. Do not give if respiratory rate is less than 8 breaths/minute. Given 10/25/2024 10:10 AM CDT 1 mg oxyCODONE IR tablet 10 mg (Roxicodone) 10 mg, oral, Every 4 hours PRN, severe pain or score 7-10 of 10, Starting on Wed10/25/24 at 1548, PACU & Post-Op, Second line therapy. If patient is greater than 7 after 2 hours, call service for new order. May administer lower pain scale value dose of prescribed medication based on patient request oxyCODONE IR tablet 5 mg (Roxicodone) 5 mg, oral, Once as needed, For pain 4 or greater, Starting on Wed10/25/24 at 1330, For 1 dose, PACU (only) Given 10/25/2024 1:54 PM CDT 5 mg oxyCODONE IR tablet 5 mg (Roxicodone) 5 mg, oral, Every 4 hours PRN, moderate pain or score 4-6 of 10, Starting on Wed10/25/24 at 1548, PACU & Post-Op, Second line therapy documented in this encounter Active and Recently Administered Medications Times are shown in CDT. Scheduled Medication Order 10/23/2024 10/24/2024 10/25/2024 acetaminophen tablet 1,000 mg (TylenoL) (COMPLETED) 1,000 mg, oral, Once, On Wed10/25/24 at 1000, For 1 dose, Pre-Op 0937 (Given - Provid er: Lv Burgos RNikoN.) acetaminophen tablet 1,000 mg (TylenoL) 1,000 mg, oral, Every 6 hours, First dose on Wed10/25/24 at 1615, PACU & Post-Op 1630 (Given - Provid er: Valentina Sahni RMalathi.) aspirin chewable tablet 81 mg 81 mg, oral, 2 times daily, First dose on Wed10/25/24 at 2100 tranexamic acid in NaCl IVPB 1,000 mg (Cyklokapron) (COMPLETED) 1,000 mg (1 g), intravenous, at 300 mL/hr, Administer over 20 Minutes, Once, On Wed10/25/24 at 1130, For 1 dose, Intra-Op, Administer in OR upon induction 1105 (Given - Provid er: Celsa Richards APRN, FLORIDALMA) tranexamic acid in NaCl IVPB 1,000 mg (Cyklokapron) (COMPLETED) 1,000 mg (1 g), intravenous, at 300 mL/hr, Administer over 20 Minutes, Once, On Wed10/25/24 at 1130, For 1 dose, Intra-Op, Administer in OR just before dropping tourniquet 1215 (Given - Provid er: Elizabeth Luciano APRN, FLORIDALMA, DNAP)1230 (Anesthesia Volume Adjustment - Provider: Elizabeth Luciano APRN, FLORIDALMA, DNAP) Continuous Medication Order 10/23/2024 10/24/2024 10/25/2024 Lactated Ringer's 20 mL/hr, intravenous, Continuous, Starting on Wed10/25/24 at 1200, PACU & Post-Op 1332 (Continued from OR - Provider: Edgar Bullard, R.N.) PRN Medication Order 10/23/2024 10/24/2024 10/25/2024 fentaNYL injection 50 mcg (Sublimaze) (COMPLETED) 50 mcg, intravenous, Once as needed, sedation, Starting on Wed10/25/24 at 0936, For 1 dose, Pre-Op, IV Push, Initial dose 1010 (Given - Provid er: Aleta Gloria RMalathi.) haloperidol lactate injection 1 mg (HaldoL) 1 mg, intravenous, Every 6 hours PRN, nausea, vomiting, Starting on Wed10/25/24 at 1548, For 48 hours, PACU & Post-Op, Total of 3 doses in 24 hour period. RASS must be -2 or higher to administer. Reassess for nausea or vomiting after at least 10 minutes. If nausea or vomiting persists administer next ordered antiemetic medications (order for antiemetic medication administration ondansetron then haloperidol then prochlorperazine) hydrogen peroxide 3 % topical solution (CANCELED) As needed, Starting on Wed10/25/24 at 1204, Intra-Op 1204 (Given - Provid er: Lang Linn M.D.) HYDROmorphone (PF) injection 0.2 mg (Dilaudid) 0.2 mg, intravenous, Every 2 hour PRN, severe pain or score 7-10 of 10, Starting on Wed10/25/24 at 1548, For 2 doses, PACU & Post-Op, May administer if pain is greater than 7 after scheduled and PRN regimen exhausted. If pain remains greater than 7, notify primary service. midazolam (PF) injection 1 mg (Versed) () 1 mg, intravenous, Every 2 min PRN, sedation, RASS 0, Starting on Wed10/25/24 at 0936, For 3 hours, Pre-Op, May repeat every 2 minutes for a maximum of 5 mg. Do not give if respiratory rate is less than 8 breaths/minute. 1010 (Given - Provid er: Aleta Gloria R.N.) naloxone injection 0.2 mg (Narcan) 0.2 mg, intravenous, As needed, respiratory depression, Starting on Wed10/25/24 at 1547, For RASS Score -4 or less, respiratory rate of less than 8 breaths/min. Notify provider/service and rapid response team (if available at institution). ondansetron (PF) injection 4 mg (Zofran) 4 mg, intravenous, Every 6 hours PRN, nausea, vomiting, Starting on Wed10/25/24 at 1548, For 48 hours, PACU & Post-Op, Reassess for nausea or vomiting after at least 10 minutes. If nausea or vomiting persists administer next ordered antiemetic medications (order for antiemetic medication administration ondansetron then haloperidol then prochlorperazine). oxyCODONE IR tablet 10 mg (Roxicodone)(Linked Group 1) 10 mg, oral, Every 4 hours PRN, severe pain or score 7-10 of 10, Starting on Wed10/25/24 at 1548, PACU & Post-Op, Second line therapy. If patient is greater than 7 after 2 hours, call service for new order. May administer lower pain scale value dose of prescribed medication based on patient request oxyCODONE IR tablet 5 mg (Roxicodone) (COMPLETED) 5 mg, oral, Once as needed, For pain 4 or greater, Starting on Wed10/25/24 at 1330, For 1 dose, PACU (only) 1354 (Given - Provid er: Edgar Bullard R.N.) oxyCODONE IR tablet 5 mg (Roxicodone)(Linked Group 1) 5 mg, oral, Every 4 hours PRN, moderate pain or score 4-6 of 10, Starting on Wed10/25/24 at 1548, PACU & Post-Op, Second line therapy prochlorperazine injection 5 mg (Compazine) 5 mg, intravenous, Every 6 hours PRN, nausea, vomiting, Starting on Wed10/25/24 at 1548, For 48 hours, PACU & Post-Op, RASS must be -2 or higher to administer. Reassess for nausea/vomiting after at least 10 minutes. If nausea or vomiting persists administer next ordered antiemetic medications (order for antiemetic medication administration ondansetron then haloperidol then prochlorperazine) Linked Groups Order Group 1: oxyCODONE IR tablet 5 mg (Roxicodone)Jump to med 5 mg, oral, Every 4 hours PRN, moderate pain or score 4-6 of 10, Starting on Wed10/25/24 at 1548, PACU & Post-Op, Second line therapy Or oxyCODONE IR tablet 10 mg (Roxicodone)Jump to med 10 mg, oral, Every 4 hours PRN, severe pain or score 7-10 of 10, Starting on Wed10/25/24 at 1548, PACU & Post-Op, Second line therapy. If patient is greater than 7 after 2 hours, call service for new order. May administer lower pain scale value dose of prescribed medication based on patient request documented in this encounter Care Teams Production Reproduction Manager Relationship Specialty Start Date End Date Elsewhere, Pcp PCP - General Internal Medicine 11/08/23 documented as of this encounter
--- OUTSIDE RECORDS SUMMARY | 2024-10-31 07:51 | XMS_ITS | Encounter Summary ---
Author Organization [facility] Address [address] [place] [phone] Care Team Providers Care Paleology Teacher Name Role Phone Elsewhere, Pcp Primary Care Provider Unavailabl e Reason for Visit * Outpatient (Routine) - Closed Specialty Diagnoses / Procedures Referred By Chato t Referred To Contact Anesthesiology Diagnoses Pain Shoulder Left Primary Osteoarthritis Shoulder Left Floyd Burger MPAS, P.A.-C., M.S. [address] [place] [phone] Phone: tel: fax: [facility] Referral ID Status Reason Start Date Expiration Date Visits Re quested Visits Authorized [id number] Closed 07/27/2024 01/26/2026 1 1 Encounter Details Date Type Department Care Team (Latest Contact Info) Description 10/24/2024 2:00 PM CDT Comprehensive Visit Preoperative Evaluation Center in [place], [place] [address] [place] [phone] Floyd Burger MPAS, P.A.Emanuel., M.S. [address] [place] [phone] Julissa Osborn APRN, C.N.P., D.N.P., M.S. [address] [place] [phone] Hypertension Essential Primary (Primary Dx); Pain Shoulder Left; Primary Osteoarthritis Shoulder Left; Gastroesophageal Reflux Disease Without Esophagitis; Stricture Esophagus; Hyperlipidemia Mixed; Hypothyroidism; Abnormal Stress Test Social History Tobacco Use Types Packs/Day Years Used Date Smoking Tobacco: Never Smokeless Tobacco: Never Tobacco Cessation:Counseling Given: Not Answered Alcohol Use Standard Drinks/Week Comments Not Currently 0 (1 standard drink = 0.6 oz pur e alcohol) Maybe ten drinks a year [facility] Utilities Answer Date Recorded In the past [...] week 11/14/2022 How often do you attend [facility] or [employer] services? More than 4 times per year 11/14/2022 Do you belong to any clubs o r organizations such as spiritism groups, unions, fraternal or athletic groups, or [...] Date Recorded PHQ-2 Score 0 01/28/2024 [facility] - Occupational Stress Questionnaire Answer Date [...] living situation today? I have a [facility] place to live 02/08/2024 Education Answer Date Recorded What is the highest level of school you have completed or the highest degree you have received? 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 Gender Identity Male 11/14/2022 2:04 PM CDT Sexual Orientation Straight 12/20/2017 2: 04 PM CDT documented as of this encounter Last Filed Vital Signs Vital Sign Reading Time Taken Comments Blood Pressure 133/79 10/24/2024 1:53 PM CDT Pulse 69 10/24/2024 1:53 PM CDT Temperature 36.9 C (98.4 F) 10/24/2024 1:53 PM CDT Respiratory Rate - - Oxygen Saturation 95% 10/24/2024 1:53 PM CDT Inhaled Oxygen Concentration - - Weight 107 kg (236 lb 12.4 oz) 10/24/2024 1:53 P M CDT Height 183 cm (6' 0.05) 10/24/2024 1:53 PM CDT Body Mass Index 32.07 10/24/2024 1:53 PM CDT documented in this encounter H&P Notes * Julissa Osborn APRN, C.N.P., D.N.P., M.S. - 10/24/2024 2:00 PM CDT Images from the original note were not included. REASON FOR VISIT: Preoperative Medical Evaluation REFERRING PHYSICIAN: RAJESH Garcia, PRachel-Abbey., M.S. 10/25/2024: ARTHROPLASTY TOTAL REVERSE SHOULDER; Lang Linn M.D. Surgery Specific Risk Classification: Intermediate Risk SUBJECTIVE HISTORY OF PRESENT ILLNESS Paul Brown is a 79 y.o. male who is here for preanesthetic medical examination prior to the planned procedure as listed above. Cardiac Risk Scoring: Revised Cardiac Risk Index 0 Points - Very Low Risk of Cardiac Event (0.4%) DASI Calculations Flowsheet Row Comprehensive Visit from 10/24/2024 in Preoperative Evaluation Center in [place], [place] Most recent reading at 10/24/2024 2:18 PM Comprehensive Visit from 10/17/2020 in [facility] Evaluation [facility] in [place], [place] Most recent reading at 10/17/2020 12:02 PM Appointment from 08/21/2020 in Preoperative Evaluation [facility] in [place], [place] Most recent reading at 06/14/2020 11:45 AM Appointment from 06/17/2020 in [facility]operative Evaluation [facility] in [place], [place] Most recent reading at 06/14/2020 11:45 AM DASI Total Score 24.2 24.2 28.7 28.7 Estimated V02 Peak 20.01 20.01 21.94 21.94 Estimated MET Level 5.72 5.72 6.27 6.27 OBJECTIVE OBJECTIVE PHYSICAL EXAMINATION General/Constitutional Constitutional Assessment: Normal General State of Health: Healthy appearing Airway (HEENT) Mallampati: II TM Distance: >3 FB Neck ROM: Full Mouth Opening: > 3 cm Upper Lip Bite Test: I Dental Assessment: Dentition intact Cardiovascular Rhythm: Regular Rate: Normal Cardiovascular Assessment: Normal Pulmonary Pulmonary Assessment: Clear and non labored Neurological Neurologic Assessment: Alert and oriented X 3 Musculoskeletal MSK Assessment: Normal Gait: Normal Ambulate with: None Psychiatric Psychiatric Assessment: Calm Dermatology Skin Assessment: normal ASSESSMENT / PLAN Anesthesia: Patient reports previous anesthesia related complication of PONV. His most recent surgery (hip) was without complication. Airway Hx: 10/18/2020 Airway Final Airway Type: video laryngoscope Cuffed: Yes Final Best View Glottic Structure: grade 1 Insertion Site: oral Tube Type: standard ETT ETT Size (mm): 7.5 Number of Attempts at Approach: 1 Lab: Lab Results Component Value Date HGB 15.2 06/06/2024 HCT 43.1 06/06/2024 PLT 204 06/06/2024 NA 142 10/24/2024 KSERUM 4.8 10/24/2024 CREATININE 1.19 10/24/2024 EGFR 63 10/24/2024 TSH 2.2 01/13/2024 EC01/13/2024 IMPRESSION: Normal sinus rhythm Left axis deviation When compared with ECG of 27-Apr-2019 07:32, Premature ventricular complexes are no longer present ECHO: 02/14/2024 Hemodynamics Heart Rate: 60 BPM Blood Pressure: 141 / 86 mmHg ECG: Sinus rhythm Final Impressions 1. Normal left ventricular chamber size, no regional wall motion abnormalities, calculated 2-D biplane volumetric ejection fraction of 56%. 2. Normal left ventricular geometry, normal filling pressure. 3. Normal right ventricular chamber size, normal systolic function, estimated right ventricular systolic pressure 28 mmHg (right atrial pressure of 5 mmHg). 4. Mild aortic valve regurgitation. 5. No pericardial effusion. 6. Compared to the report of 04/28/2019 no significant change has occurred. Side by side comparisonof images performed. Findings LEFT VENTRICLE:Normal left ventricular chamber size. Normal left ventricular geometry. Calculated 2-D biplane volumetric left ventricular ejection fraction of 56% without the use of ultrasound enhancing agent. No regional wall motion abnormalities. Normal left ventricular filling pressure. RIGHT VENTRICLE:Normal right ventricular chamber size. Normal right ventricular systolic function. Estimated right ventricular systolic pressure 28 mmHg (right atrial pressure of 5 mmHg). ATRIA:Normal left atrial size. Left atrial volume index 29 ml/m2. Strain imaging examination performed to assess left atrial function. Global averaged left atrial biplane longitudinal peak systolic strain is abnormal at 26.0% (normal is greater than 35%). Normal right atrial size. CARDIAC VALVES:Trileaflet aortic valve. Thickened aortic valve. Mild aortic valve regurgitation. Aortic regurgitant volume (PISA) 23 ml. Aortic regurgitation ERO (PISA) 0.09 cm2. Thickened mitral valve. Trivial mitral valve regurgitation. Normal pulmonary valve. Normal pulmonary valve systolic veloc ities. Trivial pulmonary valve regurgitation. Normal tricuspid valve. Trivial tricuspid valve regurgitation. OTHER ECHO FINDINGS:Normal inferior vena cava size with normal inspiratory collapse (>50%). Normal sinus of Valsalva diameter of 38 mm. Normal mid ascending aorta diameter of 34 mm. No abdominal aortic aneurysm. Normal abdominal aorta Doppler flow pattern. Possible patent foramen ovale. No intrac ardiac mass or thrombus, but the left atrial appendage cannot be visualized adequately with transthoracic echo to exclude thrombus in this location. No pericardial effusion. 02/21/2024 Cardiac Catheterization PROCEDURE TYPES 1. CORONARY ANGIOGRAPHY FINAL DIAGNOSIS 1. Mild coronary artery atherosclerosis PRE-PROCEDURE DIAGNOSIS 1. Abnormal Stress Test CORONARY DIAGNOSTIC SUMMARY Coronary artery dominance is right. Normal right coronary. Normal left main coronary. Normal circumflex coronary. The middle left anterior descending artery is 20% obstructed by multiple discrete lesions. RADIATION DOSE DATA Procedure cumulative skin dose (mGy): 167.55 Procedure cumulative dose area product (Gy-cm2): 13.97 Fluoro Time (Min): 4.49 CONTRAST DOSE DATA iohexoL 350 mg iodine/mL solution (Omnipaque): 40 mL #1 Pain Shoulder Left Pleasant 79 y.o. male presents for preanesthesia evaluation for surgery noted above. Activity tolerance: Patient is able to walk 2 city blocks and climb stairs without difficulty. Denies dizziness, rapid heart beat, shortness of breath, or syncope with activity. Substance use: Tobacco: None Alcohol: 6 servings a year Recreational Drugs: None Caffeine: 2 servings a day Pain medication: OTC Personal history: CAD: He underwent cardiac evaluation that 02/19/2024 (results noted above) Bleeding or clotting disorder: denies Radiation or chemotherapy: denies Neck/spine: denies prior injuries or procedures Oral/airway: denies GERD, history of esophageal stricture status post esophageal stretching notes occasional swallowing difficulties, no dentures Glasses/hearing aids: Reading glasses Ambulation: Does not require assistive devices Family history: CAD: denies Anesthesia reaction: denies Bleeding/clotting disorders: denies #2 Primary Osteoarthritis Shoulder Left This is the reason for surgery. Please see surgical team consult note for full details. Patient reports pain 2/10 at rest. He has limited movement of a left shoulder. #3 Hypertension Essential Primary Treated with losartan, and metoprolol. Instructed to hold losartan morning of surgery. Instructed to continue metoprolol perioperatively. #4 Gastroesophageal Reflux Disease Without Esophagitis #5 Stricture Esophagus Notes occasional GERD. Has a history of esophageal stricture status post esophageal stretching. Patient notes occasional dysphagia with certain foods such as rice or dry foods. #6 Hyperlipidemia Mixed Treated with atorvastatin. Instructed to continue perioperatively. #7 Hypothyroidism Treated with levothyroxine. Instructed to continue perioperatively. #8 Abnormal Stress Test Patient underwent echocardiogram and cardiac catheterization of 02/19/2024. Results noted above. PATIENT EDUCATION: Reviewed Instructions To Get Ready for Your Surgery or Procedure: [facility] 3596-07 rev 0124. Written and verbal instructions given on medication management beforesurgery. RECOMMENDATIONS: Patient medically optimized for planned procedure: Yes Further Recommendations: None documented in this encounter Plan of Treatment Upcoming Encounters Date Type Department Care Team (Late st Contact Info) Description 11/09/2024 11:45 AM CDT Appointment Department of Radiology, [facility], in [place], [place] [address] [place] [phone] Christina Duong APRN, C.N.P., M.S.N. [address] [place] [phone] 11/09/2024 1:00 PM CDT Office Visit Department of Orthopedic Surgery in [place], [place] [address] [place] [phone] Christina Duong APRN, C.N.Shayy., M.S.N. [address] [place] [phone] 12/04/2024 9:30 AM CDT Office Visit Department of Family Medicine, [facility], in [place], [place] [address] [phone] Kenia Millan APRN, C.N.P. [address] [place] [phone] Scheduled Procedures Name Priority Associated Diagnoses Date/Ti me ARTHRODESIS WRIST documented as of this encounter Visit Diagnoses Diagnosis Hypertension Essential Primary- Primary Pain Shoulder Left Primary Osteoarthritis Shoulder Left Gastroesophageal Reflux Disease Without Esophagitis Stricture Esophagus Hyperlipidemia Mixed Hypothyroidism Abnormal Stress Test documented in this encounter Care Teams Paleology Teacher Relationship Specialty Start Date End Date Elsewhere, Pcp PCP - General Internal Medicine 11/08/23 documented as of this encounter
--- OUTSIDE RECORDS SUMMARY | 2024-10-31 07:51 | XMS_ITS | Encounter Summary ---
Author Organization [facility] Address [address] [place] [phone] Care Team Providers Care Statistical Assistant Name Role Phone Elsewhere, Pcp Primary Care Provider Unavailabl e Reason for Visit * Reason Comments Post-op * Outpatient (Routine) - Closed Specialty Diagnoses / Procedures Referred By Chato austin Referred To Contact Christina Duong APRN C.N.P., M.S.N. [address] [place] [phone] Phone: tel: fax: [facility] Referral ID Status Reason Start Date Expiration Date Visits Re quested Visits Authorized [id number] Closed 10/25/2024 04/26/2026 1 1 Encounter Details Date Type Department Care Team (Latest Contact Info) Description 10/26/2024 10:00 AM CDT Virtual Visit Department of Orthopedic Surgery in [place], [place] [address] [place] [phone] Christina Duong APRN C.N.P., M.S.N. 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 More than 4 times per year 11/14/2022 Do you belong to any clubs o r organizations such as restorationist groups, unions, fraternal or athletic groups, or [...] Answer Date Recorded PHQ-2 Score 0 01/28/2024 [facility] - Occupational Stress [...] your living situation today? I have a [facility] place to live 02/08/2024 Education Answer Date Recorded What is the highest level of school you have completed or the highest degree you have received? 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 - 10/26/2024 10:00 AM CDT I called the patient to check in following surgery. He reports that he is doing excellent. I encouraged Paul to call or send a message if anything comes up before his follow-up appointment with me. All questions were answered. He was appreciative of the call and agreed with the plan. documented in this encounter Plan of Treatment Upcoming Encounters Date Type Department Care Team (Late st Contact Info) Description 11/09/2024 11:45 AM CDT Appointment Department of Radiology, [facility] in [place], [place] [address] [place] [phone] Christina Duong APRN, C.N.P., M.S.N. [address] [place] [phone] 11/09/2024 1:00 PM CDT Office Visit Department of Orthopedic Surgery in [place], [place] [address] [place] [phone] Christina Duong APRN, C.NShante, M.S.N. [address] [place] [phone] 12/04/2024 9:30 AM CDT Office Visit Department of Family Medicine, [facility], in [place], [place] [address] [place] [phone] Kenia Millan APRN, C.N.P. [address] [place] [phone] Scheduled Procedures Name Priority Associated Diagnoses Date/Ti me ARTHRODESIS WRIST documented as of this encounter Visit Diagnoses Diagnosis Arthroplasty Total Shoulder Replacement Status Post Left- Primary documented in this encounter Care Teams Statistical Assistant Relationship Specialty Start Date End Date Elsewhere, Pcp PCP - General Internal Medicine 11/08/23 documented as of this encounter
--- OUTSIDE RECORDS SUMMARY | 2024-10-31 07:51 | XMS_ITS | Encounter Summary ---
Author Organization [facility] Address [address] [place] [address] Care Team Providers Care Etl Software Engineer Name Role Phone Elsewhere, Pcp Primary Care Provider Unavailabl e Encounter Details Date Type Department Care Team (Latest Contact Info) Description 10/25/2024 10:20 AM CDT Ancillary Procedure Department of Anesthesiology Social History Tobacco Use Types Packs/Day Years Used Date Smoking Tobacco: Never Smokeless Tobacco: Never Alcohol Use Standard Drinks/Week Comments Not Currently 0 (1 standard drink = 0.6 oz pur e alcohol) Maybe ten drinks a year [facility] Utilities Answer Date Recorded In the past 12 months has [employer] electric, gas, oil, or water company threatened [...] How often do you attend chur or pentecostal services? More than 4 times per year 11/14/2022 Do you belong to any clubs o r organizations such as voodoo groups, unions, fraternal or athletic groups, or [...] Answer Date Recorded PHQ-2 Score 0 01/28/2024 [facility] - Occupational Stress Questionnaire Answer [...] your living situation today? I have a [facility] place to live 02/08/2024 Education Answer Date Recorded What is the highest level of school you have completed or the highest degree you have received? 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 [address] [place] [phone] 11/09/2024 1:00 PM CDT Office Visit Department of Orthopedic Surgery in [place], [place] [address] [place] [phone] Christina Duong APRN, C.N.P., M.S.N. [address] [place] [phone] 12/04/2024 9:30 AM CDT Office Visit Department of Family Medicine, [facility], in [place], [place] [address] [place] [phone] Kenia Millan APRN, C.N.P. [address] [facility] [place] [phone] Scheduled Procedures Name Priority Associated Diagnoses Date/Ti me ARTHRODESIS WRIST documented as of this encounter Procedures Procedure Name Priority Date/Time Associated Diagnosis Comments ANESTHESIOLOGY IMAGE EXAM Routine 10/25/2024 10:20 AM CDT documented in this encounter Results * Non-Radiology Image-Anesthesiology Image Exam (10/25/2024 10:20 AM CDT) 10/25/2024 10:1 8 AM CDT Narrative IIM[facility] - 10/25/2024 10:28 AM CDT This order has been created and auto-finalized to support the import of images acquired without order. The clinical documentation to support these images can be found on the encounter that produced images. us Provider Not In System IMG NON RAD IMAGING PROCE DURES Final Result [facility] NA documented in this encounter Visit Diagnoses Not on filedocumented in this encounter Care Teams Etl Software Engineer Relationship Specialty Start Date End Date Elsewhere, Pcp PCP - General Internal Medicine 11/08/23 documented as of this encounter
--- OUTSIDE RECORDS SUMMARY | 2024-10-31 07:51 | XMS_ITS | Clinical Summary ---
Author Organization [facility] Address [address] [place] [address] Care Team Providers Care Hander In Name Role Phone Elsewhere, Pcp Primary Care Provider Unavailabl e Source Comments Patient records contain information from all sites at [facility]. For routine questions regarding patient records, call [phone] during business hours, M-F 8:00 AM - 5:00 PM Central Time. Record requests for emergency care only can be directed to [phone] at any time.[facility] Allergies No known active allergies Medications * This document contains information received from the source organization and may not represent a complete record from that organization. metoprolol succinate (TOPROL-XL) 50 mg 24 hr tablet Take 50 mg by mouth every evening. 0 Active losartan (COZAAR) 50 mg tablet TAKE 1 TABLET(50 MG) BY MOUTH EVERY DAY 2 Active levothyroxine (SYNTHROID, LEVOTHROID) 75 mcg tablet Take 75 mcg by mouth. 2 Active hydrocortisone (HYTONE) 2.5 % creamIndicatio ns:Dermatitis Seborrheic Apply 1 application topically 2 (two) times a day as needed (Rash). Apply to ears, mix 1:1 with ketoconazole cream 30 g 6 2 Active ketoconazole (NIZORAL) 2 % creamIndicatio ns:Dermatitis Seborrheic APPLY TOPICALLY TO EARS TWICE DAILY 30 g 6 2 Active Slo-Niacin 500 mg ER tablet 2 Active atorvastatin (Lipitor) 20 mg tablet Take 1 tablet (20 mg total) by mouth daily. 30 tablet 11 4 Active oxyCODONE (Roxicodone) 5 mg immediate release tabletIndicati ons:Acute Pain Take 1-2 tablets (5-10 mg total) by mouth every 4 (four) hours as needed for pain. Take 1 tablet (5 mg) for pain 3-6 or take 2 tablets (10 mg) for pain 7-10 20 tablet 10/25/2024 3:08 PM CDT 5 Active sennosides-doc usate sodium (Senna with Docusate Sodium) 8.6-50 mg per tablet Take 1 tablet by mouth 2 (two) times a day. For constipation - this medication may be purchased over the counter 5 Active acetaminophen (TylenoL) 500 mg tablet Take 2 tablets (1,000 mg total) by mouth 4 (four) times a day. For pain - this medication may be purchased over the counter 5 Active ketoconazole (NIZORAL) 2 % shampooIndicat ions:Dermatiti s Seborrheic Apply 1 application topically 3 (three) times a week. Apply to damp skin, lather, leave on 5 minutes, and rinse 120 mL 6 2 025 Discontin ued(Thera py completed ) aspirin [address] tablet Take 1 tablet (81 mg total) by mouth daily. First dose today 90 tablet 3 4 025 Discontin ued(Thera py completed ) Active Problems Problem Noted Date Diagnosed Date Abnormal Stress Test 02/15/2024 Primary Osteoarthritis Hip Left 02/08/2020 Overview (02/08/2020): Added automatically from request for surgery [id number] Beat Premature Ventricular 04/28/2019 Pain Shoulder Right 03/31/2019 Hypertension Essential Primary 01/30/2019 Gastroesophageal Reflux Disease NOS 09/11/2014 Hyperlipidemia Mixed 10/29/2009 Stricture Esophagus 08/11/2007 Hypothyroidism 12/31/2006 Encounters Date Type Department Care Team Description 10/26/2024 10:00 AM CDT Virtual Visit Department of Orthopedic Surgery in [place], [place] [address] [place] [address] Christina Duong, ALBA, C.N.P., M.S.N. 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 Cacioppo, Paul T, M.D. 10/25/2024 10:24 AM CDT - 10/25/2024 1:04 PM CDT Surgery RST [facility] OR [address] [place] [address] Lang Linn M.D. 1. Left reverse total shoulder arthroplasty (Enovis, monoblock base plate) 2. Left open biceps tenodesis 10/25/2024 10:20 AM CDT Ancillary Procedure Department of Anesthesiology 10/25/2024 8:00 AM CDT - 10/25/2024 4:50 PM CDT Hospital Encounter Outpatient Surgery Unit in [place], [place] [address] [place] [phone] Lang Linn M.D. 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 Julissa Osborn APRN, C.N.P., D.N.P., M.S. Hypertension Essential Primary (Primary Dx); Pain Shoulder Left; Primary Osteoarthritis Shoulder Left; Gastroesophageal Reflux Disease Without Esophagitis; Stricture Esophagus; Hyperlipidemia Mixed; Hypothyroidism; Abnormal Stress Test 10/24/2024 1:00 PM CDT Office Visit Department of Orthopedic Surgery in [place], [place] [address] [place] [phone] Lang Linn M.D. Pain Shoulder Left (Primary Dx) 10/24/2024 10:55 AM CDT - 10/24/2024 11:59 PM CDT Hospital Encounter Department of Laboratory Medicine and Pathology, [facility] in [place], [place] [address] [place] [address] Elsy Camilo MPAS, P.A.-C. Preanesthetic Medical Exam Discharge Disposition: Home or Self Care 10/20/2024 8:30 AM CDT Clinical Communication Virtual Review in [place], [place] [address] [place] [address] Pre-visit Intake from Last 3 Months Immunizations Immunization Administration Dates Next Due Influenza Split 06/08/2014 Family History Medical History Relation Name Comments Prostate cancer Brother yumiko Thyroid cancer Brother yumiko Hypertension Father 1 lázaro brakke Hypertension Father 2 lázaro brakke Pancreatic cancer Mother 1 yanelis brakke Pancreatic cancer Mother 2 yanelis brakke Other cancer Sister 1 jigna Breast cancer Sister 2 Gerda Breast cancer Sister 3 Gerda Relation Name Status Comments Brother yumiko Father 1 lázaro gallegoskke Father 2 lázaro gallegoskke Mother 1 yanelis brakke Mother 2 yanelis brakke Alive Sister 1 jigna Sister 2 Gerda Alive Sister 3 Gerda Alive Social History Tobacco Use Types [...] 11/14/2022 How often do you attend chur ch or rastafarian services? More than 4 times per year 11/14/2022 Do you belong to any clubs o r organizations such as orthodoxy groups, unions, fraternal or athletic groups, or [...] Answer Date Recorded PHQ-2 Score 0 01/28/2024 [facility] [place] [facility] - Occupational Stress Questionnaire Answer Date [...] your living situation today? I have a [facility] place to live 02/08/2024 Education Answer Date Recorded What is the highest level of school you have completed or the highest degree you have received? Bachelor's degree (e.g., BA, AB, BS) 04/28/2019 Sex and Gender Information Value Date Recorded Sex Assigned at Male 11/14/2022 2:04 PM CDT Legal Sex Male 9:15 AM [employer] Gender Identity Male 11/14/2022 2:04 PM [...] Mass Index 32.65 10/25/2024 8:57 AM CDT Plan of Treatment Upcoming Encounters Date Type Department Care Team (Late st Contact Info) Description 11/09/2024 11:45 AM CDT Appointment Department of Radiology, [facility], in [place], [place] [address] [place] [address] Christina Duong APRN, C.N.P., M.S.N. [address] [place] [address] 11/09/2024 1:00 PM CDT Office Visit Department of Orthopedic Surgery in [place], [place] [address] [place] [address] Christina Duong APRN, C.N.Shayy., M.S.N. [address] [place] [address] 12/04/2024 9:30 AM CDT Office Visit Department of Family Medicine, [facility], in [place], [place] [address], [place] [address] Kenia Millan APRN, C.N.PNiko [address], [place] [address] Scheduled Procedures Name Priority Associated Diagnoses Date/Ti me ARTHRODESIS WRIST Health Maintenance Due Date Last Done Comments Hepatitis C Screening 1945 Depression Screening (Annual PHQ-2) 08/02/2024 COVID-19 Vaccine ( season) 2024 04/12/2024, 05/13/2023, 05/04/2022, Additional history exists Thyroid Stimulating Hormone (TSH) test for thyroid function 01/12/2025 01/13/2024, 11/08/2023, 10/07/2022, Additional history exists Creatinine Level (Kidney Function Test) 10/24/2025 10/24/2024, 01/13/2024, 11/08/2023, Additional history exists Office Visit for Blood Pressure Check / Re-check 10/24/2025 10/24/2024 Potassium Level 10/24/2025 10/24/2024, 12/31, 11/08/2023, Additional history exists Sodium Level 10/24/2025 10/24/2024, 12/31, 11/08/2023, Additional history exists DTaP,Tdap,and Td Vaccines (3 - Td or Tdap) 03/29/2034 03/29/2024, 04/25/2012, 08/11/2007 Pneumococcal vaccine (50+ years) Completed 12/13/2014, 04/25/2012 Zoster Vaccines Completed 05/25/2019, 01/30, 10/10/2008 RSV vaccine - (32-36 weeks) or 60+ years Completed 07/21/2023 Cologuard Discontinued 12/24/2023 Colorectal Cancer Screening Discontinued Influenza Vaccine Completed 04/28/2024, , 05/19/2022, Additional history exists Fall Risk Screen (Annual) Completed 10/25/2024 CT Colonography Discontinued Colonoscopy Discontinued FIT Discontinued IPV Vaccines Aged Out No longer eligi ble based on patient's age to complete this topic Medical Devices 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 at [facility] Bone Cement Right: Shoulder William 6188-1- 001 / / Cmnt Bn Hi Visc Pmma 20 - [id number] Implanted:Qty: 1 on 09/22/2019 by Charanjit Kc M.D. at [facility] Bone Cement Right: Shoulder William 6188-1- 001 / / Description:Wasted: Surgeon Error- attempted to use in patient but hardened too quick with implant Screw Xpode Lock 2.4 X 20mm - Germain [id number] Implanted:Qty: 2 on 09/18/2014 Hardware e.g. pins/screw s/rods [employer]Med Inc Description:Device Manufactu rer - Fermentalg.. Device Status Text - HARDWARE-12623. Jayceire 4 .054 - Germain [id number] Implanted:Qty: 1 on 09/18/2014 Hardware e.g. pins/screw s/rods BioMet Description:Device Manufactu rer - Biomet Inc. Device Status Text - HARDWARE-82380. Screw Xpode Lock 2.4 X 14mm - Germain [id number] Implanted:Qty: 2 on 09/18/2014 Hardware e.g. pins/screw s/rods [employer] Description:Device Manufactu rer - Trimed Biotech Inc.. Device Status Text - HARDWARE-11098. Screw Xpode Lock 2.4 X 16mm - Germain [id number] Implanted:Qty: 1 on 09/18/2014 Hardware e.g. pins/screw s/rods [employer] Description:Device Manufactu rer - Trimed Biotech Inc.. Device Status Text - HARDWARE-03632. Trimed-Plate Fusion Cup 14mm 7h - Germain [id number] Implanted:Qty: 1 on 09/18/2014 Hardware e.g. pins/screw s/rods [employer] Description:Device Manufactu rer - Trimed Inc.. Device Status Text - HARDWARE-208687. K-Wire-Ss 4 Smooth .062 - Germain [id number] Implanted:Qty: 2 on 09/18/2014 Hardware e.g. pins/screw s/rods William Description:Device Manufactu rer - May Eri.. Device Status Text - HARDWARE-871. Screw Xpode Lock 2.4 X 12mm - Germain [id number] Implanted:Qty: 5 on 09/18/2014 Hardware e.g. pins/screw s/rods [employer] Description:Device Manufactu rer - Trimed [employer] Inc.. Device Status Text - HARDWARE-89390. Screw Xpode Lock 2.4 X 10mm - Germain [id number] Implanted:Qty: 2 on 09/18/2014 Hardware e.g. pins/screw s/rods [employer] Description:Device Manufactu rer - Trimed [employer]otech Inc.. Device Status Text - HARDWARE-02968. [place] Screw 2 Canc 6.5 X 15 - Germain [id number] Implanted:Qty: 1 on 07/03/2015 Hardware e.g. pins/screw s/rods [employer] Description:Device Manufactu rer - J [employer] J [employer]o. Device Status Text - HARDWARE-56237. [place] Screw 2 Canc 6.5 X 30 - Germain [id number] Implanted:Qty: 1 on 07/03/2015 Hardware e.g. pins/screw s/rods [employer] Description:Device Manufactu rer - J [employer] J [employer]. Device Status Text - HARDWARE-97460. Scrw Pnn Acet Ft 6.5x35 - [id number] Implanted:Qty: 1 on 10/18/2020 by López Ramos M.D. at [facility] Hardware e.g. pins/screw s/rods Left: Hip Depuy Synthes 08/01/2030 1217-35 -500 / / [id number] Scrw Pnn Acet Ft 6.5x8 - [id number] Implanted:Qty: 1 on 10/18/2020 by López Ramos M.D. at [facility] Hardware e.g. pins/screw s/rods Left: Hip Depuy Synthes 07/01/2030 1217-08 -500 / / [id number] [place] Liner Altrx Neut 36x62 - [id number] [id number] Implanted:Qty: 1 on 07/03/2015 Hip Implant Other/Legacy - See Implant Description [employer] Description:Device Manufactu rer - J & J [employer]. Body Location - Other. Right. Device Status Text - HIP [id number]. Hip Stem Secur-Fit +Max 12 40 - Germain [id number] Implanted:Qty: 1 on 07/03/2015 Hip Implant Other/Legacy - See Implant Description William Description:Device Manufactu rer - William Eri.. Body Location - Other. Right. Device Status Text - HIP IMP-190014. Biolox-Delta Head C-Taper 36mm -2.5 - Germain [id number] Implanted:Qty: 1 on 07/03/2015 Hip Implant Other/Legacy - See Implant Description May Description:Device Manufactu rer - May Eri.. Body Location - Other. Right. Device Status Text - HIP IMP-773058. [place] Shell Multi 2 62mm - Germain [id number] Implanted:Qty: 1 on 07/03/2015 Hip Implant Other/Legacy - See Implant Description [employer] Description:Device Manufactu rer - J & J [employer]. Body Location - Other. Right. Device Status Text - HIP IMP-857318. Shll Acet Pnn Mhl Porct 62 - [id number] Implanted:Qty: 1 on 10/18/2020 by López Ramos M.D. at [facility] Hip Implant Left: Hip Depuy Synthes 08/01/2030 1217-20 -062 / / [id number] Lnr Alt 0d 40x62 - [id number] Implanted:Qty: 1 on 10/18/2020 by López Ramos M.D. at [facility] Hip Implant Left: Hip Depuy Synthes 09/01/2025 1221-40 -062 / / [id number] Hip Stm Scr +Max Sz12 70y713 - [id number] Implanted:Qty: 1 on 10/18/2020 by López Ramos M.D. at [facility] Hip Implant Left: Hip William 05/31/2024 6052-12 40S / / [id number] Slv Drl Hip Cocr -2.5 - [id number] Implanted:Qty: 1 on 10/18/2020 by López Ramos M.D. at [facility] Hip Implant Left: Hip May 10/22/2024 19-0325 T / / [id number] Fem Hd Blx +0x40 - [id number] Implanted:Qty: 1 on 10/18/2020 by López Ramos M.D. at [facility] Hip Implant Left: Hip William 06/16/2025 6519-1- 040 / / [id number] Comp Glnd Alt Pgd 50 - [id number] Implanted:Qty: 1 on 09/22/2019 by Charanjit Kc M.D. at [facility] Shoulder Implant Right: Shoulder [employer]O Global 01/05/2023 521-07- 250 / / [id number] Description:Wasted: Surgeon Error, opened and attempted use Comp Glnd Alt Pgd 50 - [id number] Implanted:Qty: 1 on 09/22/2019 by Charanjit Kc M.D. at [facility] Shoulder Implant Right: Shoulder [employer] 11/22/2022 521-07- 250 / / [id number] Hum Stm Alt Shrt 16 - [id number] Implanted:Qty: 1 on 09/22/2019 by Charanjit Kc M.D. at [facility] Shoulder Implant Right: Shoulder [employer] 03/01/2024 520-16- 000 / / [id number] Hum Stm Alt Neut - [id number] Implanted:Qty: 1 on 09/22/2019 by Charanjit Kc M.D. at [facility] Shoulder Implant Right: Shoulder [employer] 06/21/2025 520-07- 000 / / [id number] Hum Hd Alt Ofst 18x54 - [id number] Implanted:Qty: 1 on 09/22/2019 by Charanjit Kc M.D. at [facility] Shoulder Implant [employer] 06/02/2023 520-54- 318 / / [id number] Rsp Glenoid Head W? Retaining Screw 4mm Sz 40 Implanted:Qty: 1 on 10/25/2024 by Lang Linn M.D. at [facility] Shoulder Implant Left: Shoulder [employer] [id number] 10/09/2030 508-40- 101 / / [id number] Rsp Glenoid Baweplate 30mm Screw Implanted:Qty: 1 on 10/25/2024 by Lang Linn M.D. at [facility] Shoulder Implant Left: Shoulder [employer] [id number] 08/30/2030 508-32- 204 / / [id number] Alivate Reverse Torx Screw 22mm Implanted:Qty: 1 on 10/25/2024 by Lang Linn M.D. at [facility] Shoulder Implant Left: Shoulder [employer] [id number] 05/11/2029 506-04- 122 / / [id number] Alivate Reverse Torx Screw 18mm Implanted:Qty: 1 on 10/25/2024 by Lang Linn M.D. at [facility] Shoulder Implant Left: Shoulder [employer] [id number] 05/11/2029 506-04- 118 / / [id number] 29 Insert 40mm Semi Constrained Implanted:Qty: 1 on 10/25/2024 by Lang Linn M.D. at [facility] Shoulder Implant Left: Shoulder [employer] Global [id number] 08/26/2029 509-03- 040 / / [id number] Humeral Stem Small Shell [id number] Implanted:Qty: 1 on 10/25/2024 by Lang Linn M.D. at [facility] Shoulder Implant Left: Shoulder [employer] [id number] 09/14/2030 533-10- 108 / / [id number] 1D Procedures Procedure Name Priority Date/Time Associated Diagnosis Comments DX SHOULDER LEFT 1 VIEW RAD - Routine (most inpatients and all outpatients) 10/25/2024 1:07 PM CDT LDA ANE ENDOTRACHEAL AIRWAY Routine 10/25/2024 10:51 AM CDT ID INJ ANES BRACHIAL PLEX W GUIDANCE Routine 10/25/2024 10:31 AM CDT ARTHROPLASTY TOTAL REVERSE SHOULDER 10/25/2024 10:23 AM CDT Pain Shoulder Left Primary Osteoarthritis Shoulder Left ANESTHESIOLOGY IMAGE EXAM Routine 10/25/2024 10:20 AM CDT BASIC METABOLIC PANEL, S/P Routine 10/24/2024 11:16 AM CDT Preanesthetic Medical Exam TYPE AND SCREEN Routine 10/24/2024 11:16 AM CDT Preanesthetic Medical Exam THYROID FUNCTION CASCADE, S Routine 01/13/2024 1:03 PM CDT Beat Premature Ventricular Pain Chest Hyperlipidemia Hypothyroidism from Last 3 Months or Most Recently Relevant to Health Maintenance Results * DX Shoulder Left 1 View [...] purposes. Lang Linn M.D. IMG DIAGNOSTIC IMAGING ID OCEDURES Final Result * LDA ANE ENDOTRACHEAL AIRWAY (10/25/2024 10:51 AM CDT) Narrative Elizabeth Luciano APRN, CRNA, DNAP - 10/25/2024 10:51 AM CDT Elizabeth Luciano APRN, CRNA, DNAP 10/25/2024 11:36 AM Airway Date/Time: 10/25/2024 10:51 AM Performed by: Elizabeth Luciano APRN, FLORIDALMA, DNAP Authorized by: Hany Donahue M.D. Patient location during procedure: OR / Procedure Area PROCEDURE DETAILS: Mask difficulty assessment: oral/nasal airway needed Final airway type: video laryngoscope Laryngeal Manipulation: no Final best view of glottic structures - Cormack/Lehane Score: grade 2A ETT location: oral VL device: glide scope Mission scope blade size: 4 Tube size: 7 [...] M.D. ANESTHESIA ORDERABLES Final R esult * ID INJ ANES BRACHIAL PLEX W GUIDANCE (10/25/2024 10:31 AM CDT) Narrative Panchamia, Edgar K, D.O. - 10/25/2024 10:31 AM CDT Edgar [...] fellow participated in the procedure, and the proposal consultant was present for the entire procedure. us Hany Donahue M.D. PROCEDURE/MINOR SURGICAL ORDE JIMMIE Final Result * Non-Radiology Image-Anesthesiology Image Exam (10/25/2024 10:20 [...] NON RAD IMAGING PROCE DURES Final Result Performing Organization Address City/[facility] Co de Phone Number IIMO NA * Type and Screen (with Reflex Antibody ID) (10/24/2024 11:16 AM CDT) Pathologist [facility] ABORh O Neg Not applicable 10/24/2024 4:59 PM CDT ETRM Antibody Screen Negative Negative 10/24/2024 5:09 PM CDT ETRM Type & Screen Expiration 12/22/2024 23:59 10/24/2024 4:59 PM CDT ETRM Testing Location [place] DEFAULT 10/24/2024 3:51 PM CDT ETRM Blood (Blood, Venous) 10/24/2024 11:16 AM CDT 10/24/2024 3:51 PM CDT Elsy MENA, P.A.-C. LAB BLOOD BANK TE ORDERABLES Final Result Performing Organization Address City/[facility]/ZIP Co de Phone Number [facility] [address] [place] [address], [facility] ETRM [facility] [address] [place] [address] * (ABNORMAL) Basic Metabolic Panel (10/24/2024 11:16 AM CDT) [facility] Potassium, S 4.8 3.6 - 5.2 mmol/L [...] CDT 10/24/2024 12:01 PM CDT Elsy MENA, PNikoA.-[place]. LAB BLOOD ADD-ON Final Result Performing Organization Address City/[facility]/ZIP Co de Phone Number [facility] [address] [place] [address], [facility] DTL [facility] [address] [place] [address] * Thyroid Function [place] (01/13/2024 1:03 PM CDT) TSH, Sensitive 2.2 0.3 - 4.2 mIU/L 01/13/2024 2:06 PM CDT DTL Blood (Blood, Venous) 01/13/2024 1:03 PM CDT 01/13/2024 1:40 PM CDT us Chelly MENA, PNikoA.-C., M.S. LAB BLOOD AD D-ON Final Result [facility] [address] [place] [address], [place] DTL [facility] [address] [place] [address] from Last 3 Months or Most Recently Relevant to Health Maintenance Insurance [facility] Advance Directives For more information, please contact: [phone] * Full Code (Latest Code Status on File) Date Activated Date Inactivated Comments 10/18/2020 12:00 PM 10/19/2020 12:55 PM Question Answer Comments Full Code: Discussed Care Teams Hander In Relationship Specialty Start Date End Date Elsewhere, Pcp PCP - General Internal Medicine 11/08/23
--- OUTSIDE RECORDS SUMMARY | 2024-10-31 07:51 | XMS_ITS | Clinical Summary ---
Author Organization [employer] [facility] [employer] [facility] Address [address] [place] [address] Care Team Providers Care Try On Baster Name Role Phone James Pompa MD Unavailable [phone] Jose Carpenter MD Unavailable Unavai shanelle Lin, Neto Weaver MD Unavailable [phone] Clemente Núñez MD Unavailable [phone] Floyd Valdez MD Primary Care Provider [phone] Allergies No known active allergies Medications hydrocortisone 2.5% cream Apply topically to affected area(s). 7 Active cholecalciferol (Vitamin D) 1,000 unit capsuleIndications :Vitamin D deficiency Take 1 Capsule (1,000 units) by mouth once daily. 0 2 Active ketoconazole 2% shampoo (NIZORAL) 2 % shampoo 2 Active ketoconazole 2% topical (NIZORAL) cream 2 Active levothyroxine (SYNTHROID) 75 mcg tabletIndications: Other specified hypothyroidism Take 1 Tablet (75 mcg) by mouth once daily. 90 Tablet 3 4 Active atorvastatin (LIPITOR) 20 mg tabletIndications: Mixed hyperlipidemia Take 1 Tablet (20 mg) by mouth at bedtime. 90 Tablet 3 4 Active losartan (COZAAR) 50 mg tabletIndications: Essential hypertension TAKE 1 TABLET EVERY DAY 90 Tablet 3 4 Active niacin SR (Slo-Niacin) 500 mg tabletIndications: Mixed hyperlipidemia TAKE 1 TABLET AT BEDTIME 90 Tablet 5 Active metoprolol succinate (TOPROL XL) 50 mg sustained-release tabletIndications: Essential hypertension,PVCs (premature ventricular contractions) TAKE 1 TABLET ONE TIME DAILY 90 Tablet 5 Active Active Problems Problem Noted Date Diagnosed Date Essential hypertension 01/30/2019 S/P hip replacement 07/09/2015 Overview (10/12/2022): bilateral DDD (degenerative disc disease), cervical 2013 Wrist arthropathy 04/19/2014 Screen for colon cancer 01/07/2010 Overview (01/07/2010): Colonoscopy 12/2009 diverticulosis repeat in 10 years Mixed hyperlipidemia 10/29/2009 DDD (degenerative disc disease), lumbar 10/30/19 10 Vitamin D deficiency 08/13/2009 Diverticular disease 10/10/2008 Overview (10/12/2022): Diverticulosis Esophageal stricture 08/11/2007 Unspecified hypothyroidism 12/31/2006 Resolved Problems Problem Noted Date Diagnosed Date Resolved Date Family hx colonic polyps 10/29/200903/2010 Encounters Date Type Department Care Team Description 09/04/2024 Refill [facility] [address] [place] [address] Floyd Valdez MD Refill Request (Slo-niacin, Metoprolol Succinate) from Last 3 Months Immunizations Immunization Administration Dates Next Due AMB INFLUENZA IIV3 (AGE 65+ YRS) PF (Flu Clinic Only) 04/27/2017 AMB Influenza, IIV3 (Age >=3 years)(Flu Clinic Only) 05/29/2013 AMB Influenza, IIV4 PF (=>6 mos Flulaval,Fluzone Fluarix)(Flu Clinic Only) 05/09/2019,05/03/2014 Amb Influenza, Inact (High-d ose) (Flu Clinic Only) 05/08/2016 Amb Influenza, Inactivated A IIV4 (Age 65+ Years) Preserv Free 04/22/2020 COVID-19 vaccine (Quantros 30mcg/0.3mL) PFMDV 05/07/2021 Influenza A (H1N1), Inactiva nikos (Age [...] 0 11/10/2023 Social Connections Answer Date Recorded Do you often feel lonely or isolated from those around you? 0 11/08/2023 Financial Resource Strain Answer Date R ecorded Difficulty of Paying Living Expenses 3 11/08/2023 Difficulty of Paying Living Expenses Not on file 11/08/2023 Food Insecurity Answer Date Recorded Do you worry your food will run out before you are able to buy more? 1 11/08/2023 Transportation Needs Answer Date Record ed Does lack of transportation keep you from medica l appointments? 1 11/08/2023 Does lack of transportation keep you from work, meetings or getting things that you need? 1 11/08/2023 Housing Stability Answer Date Recorded What is your housing situation today? 1 11/08/2023 Utilities Answer Date Recorded Do you have trouble paying f or utilities (for example, heat, electricity, water, phone)? 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 Respiratory Rate 20 04/12/2018 10:56 AM CDT Oxygen Saturation 94% 11/10/2023 1:09 PM CDT Inhaled Oxygen Concentration - - Weight 106.8 kg (235 lb 8 oz) 11/10/2023 1:09 PM CDT Height 178.8 cm (5' 10.39) 11/10/2023 1:09 PM C DT Body Mass Index 33.41 11/10/2023 1:09 PM CDT Plan of Treatment Upcoming Encounters Date Type Department Care Team (Late st Contact Info) Description 11/23/2024 8:00 AM CDT Orders Only [facility] [address] [place] [address] [place], [place] 11/28/2024 9:10 AM CDT Office Visit [facility] [address] [place] [address] Floyd Valdez MD [address] [place] [address] Health Maintenance Due Date Last Done Comments Tetanus booster 04/25/2022 04/25/2012, 04/03, 08/11/2007, Additional history exists COVID-19 vaccine series ( season) 2024 05/13/2023, 05/04/2022, 10/30/2021, Additional history exists BMI (ht and wt on same day) for age 18+ 11/09/2024 11/10/2023, 07/28/2023, 10/12/2022, Additional history exists Depression screening for age 12+ 11/09/2024 11/10/2023, 10/12/2022, 08/21/2021, Additional history exists Medicare Wellness for age 65+ 11/10/2024, 10/12/2022, 08/21/2021, Additional history exists Influenza Vaccine (Season Ended) 2025 05/07/2021, 04/22/2020, 05/09/2019, Additional history exists Tdap Completed 04/25/2012 Pneumococcal series for age 50+ Completed 5, 04/25/2012 Hepatitis C screening for ag e 18-79 Completed 12/29/2017 Zoster (shingles) series for age 50+ Completed 05/25/2019, 02/14/2019, 10/10/2008 RSV vaccine for adults or Completed 07/21/2023 Procedures Procedure Name Priority Date/Time Associated Diagnosis Comments ANTI HCV Routine 12/29/2017 7:56 AM CDT Need for hepatitis C screening test from Last 3 Months or Most Recently Relevant to Health Maintenance Results * ANTI HCV (12/29/2017 7:56 AM CDT) HEPATITIS C ANTIBODY Non-React nadia Non-React nadia 12/29/2017 5:33 PM CDT [facility] Comment:Antibodies to HCV no t detected; does not exclude the possibility of exposure to HCV. Blood BLOOD SPECIMEN / Unknown Venipuncture / Unknown 12/29/2017 7:56 AM CDT 12/29/2017 10:51 AM CDT Iban Sabillon MD SEND OUTS Final Re sult [facility] [address] [place] [address], [place] from Last 3 Months or Most Recently Relevant to Health Maintenance Insurance BLUE CROSS [employer] BLUE MR PB ONLY BLUE [employer]OSS [employer] BLUE HB ONLY MEDICARE PART B HB ONLY Care Teams Try On Baster Relationship Specialty Start Date End Date Floyd Valdez MD [address] [facility] [place] [address] PCP - General Family Practice 09/10/22 James Pompa MD [address] [place] [address] Gastroenterology 11/24/11 Jose Carpenter MD [address] [place] [address] Surgery - Urology 11/24/11 Neto Lin MD [address] [place] [address] Orthopedics Surgery - Orthopedic 07/11/13 Clemente Núñez MD [address] [facility] [address] [place] [address] Rheumatology Rheumatology 05/29/14
--- OUTSIDE RECORDS SUMMARY | 2024-10-31 07:51 | XMS_ITS | Encounter Summary ---
Author Organization [facility] Address [address] [place] [address] Care Team Providers Care Seismic Survey Assistant Name Role Phone Elsewhere, Pcp Primary Care Provider Unavailabl e Encounter Details Date Type Department Care Team (Late st Contact Info) Description 10/25/2024 10:24 AM CDT - 10/25/2024 1:04 PM CDT Surgery [facility] [address] [place] [address] Lang Linn M.D. [address] [place] [address] 1. Left reverse total shoulder arthroplasty (Enovis, monoblock base plate) 2. Left open biceps tenodesis Social History Tobacco Use Types Packs/Day Years Used Date Smoking Tobacco: Never Smokeless Tobacco: Never Alcohol Use Standard Drinks/Week Comments Not Currently 0 (1 standard drink = 0.6 oz pur e alcohol) Maybe ten drinks a year [facility] Utilities Answer Date Recorded In the past 12 months has [facility] [employer] gas, oil, or water [employer] threatened to shut off services in your [...] How often do you attend chur or confucianism services? More than 4 times per year 11/14/2022 Do you belong to any clubs o r organizations such as pentecostalism groups, unions, fraternal or athletic groups, or [...] Answer Date Recorded PHQ-2 Score 0 01/28/2024 [facility] [...] your living situation today? I have a [facility] place to live 02/08/2024 Education Answer Date Recorded What is the highest level of school you have completed or the highest degree you have received? 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 Gender Identity Male 11/14/2022 2:04 PM CDT Sexual Orientation Straight 12/20/2017 2: 04 PM CDT documented as of this encounter Last Filed Vital Signs Vital Sign Reading Time Taken Comments Blood Pressure 152/87 10/25/2024 9:56 AM CDT Pulse 71 10/25/2024 9:56 AM CDT Temperature 36.8 C (98.2 F) 10/25/2024 9:16 AM CDT Respiratory Rate 15 10/25/2024 9:56 AM CDT Oxygen Saturation 97% 10/25/2024 9:56 AM CDT Inhaled Oxygen Concentration - - [...] TOPICALLY TO EARS TWICE DAILY 30 g 03/09/2022 levothyroxine (SYNTHROID, LEVOTHROID) 75 mcg tablet [...] of this encounter OR Notes * Op Sandra - Lang Linn M.D. 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 We discussed overlapping surgery, and how [facility] manages this. The patient agreed and wished [...] 11:45 AM CDT Appointment Department of Radiology, [facility], in [place], [place] [address] [place] [phone] Christina Duong APRN, C.N.P., M.S.N. [address] [place] [phone] 11/09/2024 1:00 PM CDT Office Visit Department of Orthopedic Surgery in [place], [place] [address] [place] [phone] Christina Duong APRN, C.N.P., M.S.N. [address] [place] [phone] 12/04/2024 9:30 AM CDT Office Visit Department of Family Medicine, [facility], in [place], [place] [address] [place] [address] Kenia Millan APRN, C.N.PNiko [address], [place] [address] Scheduled Orders Name Type Priority [...] reverse TSA. Negative for PO purposes. Lang D Linn M.D. IMG DIAGNOSTIC IMAGING [place] OCEDURES Final Result documented in this encounter Visit Diagnoses Diagnosis Arthroplasty Total Shoulder Replacement Status Post Left- Primary Pain Shoulder Left Primary Osteoarthritis Shoulder Left documented in this encounter Administered Medications Inactive [...] Given 10/25/2024 10:10 AM CDT 50 mcg hydrogen peroxide 3 % topical solution As needed, Starting on Wed10/25/24 at 1204, Intra-Op Given 10/25/2024 12:04 PM CDT 118 mL Left Shoulder Lactated Ringer's 20 mL/hr, intravenous, Continuous, Starting [...] 1630 (Given - Provid er: Valentina Sahni RNikoN.) aspirin chewable tablet 81 mg 81 mg, oral, 2 times daily, First dose on Wed10/25/24 at 2100 tranexamic acid in NaCl IVPB 1,000 mg (Cyklokapron) (COMPLETED) 1,000 mg (1 g), intravenous, at 300 mL/hr, Administer over 20 Minutes, Once, On Wed10/25/24 at 1130, For 1 dose, Intra-Op, Administer in OR upon induction 1105 (Given - Provid er: Celsa Richards APRN, LATEX FASHIONS DESIGNER) tranexamic acid in NaCl IVPB 1,000 mg (Cyklokapron) (COMPLETED) 1,000 mg (1 g), intravenous, at 300 mL/hr, Administer over 20 Minutes, Once, On Wed10/25/24 at 1130, For 1 dose, Intra-Op, Administer in OR just before dropping tourniquet 1215 (Given - Provid er: Elizabeth Luciano APRN, LATEX FASHIONS DESIGNER, DNAP)1230 (Anesthesia Volume Adjustment - Provider: Elizabeth N Angelondous, OAKES MACHINE OPERATOR, LATEX FASHIONS DESIGNER, DNAP) Continuous Medication Order 10/23/2024 10/24/2024 10/25/2024 Lactated Ringer's 20 mL/hr, intravenous, Continuous, Starting on Wed10/25/24 at 1200, PACU & Post-Op 1332 (Continued from OR - Provider: Edgar Bullard R.N.) PRN Medication Order 10/23/2024 10/24/2024 10/25/2024 fentaNYL injection 50 mcg (Sublimaze) (COMPLETED) 50 mcg, intravenous, Once as needed, sedation, Starting on Wed10/25/24 at 0936, For 1 dose, Pre-Op, IV Push, Initial dose 1010 (Given - Provid er: Aleta Gloria R.N.) haloperidol lactate injection 1 mg (HaldoL) 1 [...] 1010 (Given - Provid er: Aleta Gloria RNikoN.) naloxone injection 0.2 mg (Narcan) 0.2 mg, [...] 1354 (Given - Provid er: Edgar Bullard RNikoN.) oxyCODONE IR tablet 5 mg (Roxicodone)(Linked Group [...] request documented in this encounter Care Teams Seismic Survey Assistant Relationship Specialty Start Date End Date Elsewhere, Pcp PCP - General Internal Medicine 11/08/23 documented as of this encounter
[2024-10-31 08:12] VITALS: BP 160/85; PULSE 88; RESP 18; TEMP 36.8; O2SAT 99; BMI 30.5
--- NOTE | 2024-10-31 08:25 | CRLHL7_ITS ---
For Patients: As a result of the Century Cures Act, medical imaging exams and procedure reports are released immediately into your electronic medical record. You may view this report before your referring provider. If you have questions, please contact your health care provider. Indication: Left thigh pain. Recent joint replacement. Technique: Grayscale, grayscale compression, color Doppler, spectral Doppler and augmentation technique was utilized for evaluating the left lower extremity venous system. The right common femoral vein was also studied. Comparison: None Findings: The right common femoral vein is unremarkable. The following veins were studied on the left and appeared normal : Common femoral vein, greater saphenous vein, proximal deep femoral vein, femoral vein, popliteal vein, peroneal veins and posterior tibial veins. Impression: Normal examination Dictated by López Woods MD @ 10/31/2024 9:08:24 AM (Electronically Signed)
--- NOTE | 2024-10-31 08:25 | ED.GENADULT ---
HPI - General Adult General Date Seen: 10/31/24 Chief complaint: Extremity Pain/Injury, Lower Stated complaint: left leg pain-shoulder surgery 10/25 Time Seen by Provider: 10/31/24 08:03 Source: patient Mode of arrival: ambulatory Limitations: no limitations History of Present Illness HPI narrative: Patient is a 79-year-old male who is not currently on blood thinners presenting to the emergency department for left leg pain. He states he had surgery on his left shoulder [facility] 10/25/2024 and was doing well and has weaned himself off narcotics and is now only taking Tylenol for pain. He states yesterday he was standing when he suddenly developed severe pain to his left inner thigh. He states pain goes most awake the this the eye stops just above the knee. Pain is getting so bad he cannot put any pressure on it. Tylenol has not been helping with the pain. Denies any other injuries. No history of blood clots. Denies chest pain, shortness of breath, headache, lightheadedness, weakness, numbness, abdominal pain. Has not noticed any pain anywhere else. No other concerns noted. Related Data Home Medications ?Medication ?Instructions ?Recorded ?Confirmed atorvastatin 20 mg tablet 20 mg PO DAILY 12/01/23 10/31/24 levothyroxine 75 mcg tablet 75 mcg PO DAILY 12/01/23 10/31/24 losartan 50 mg tablet 50 mg PO DAILY 12/01/23 12/01/23 metoprolol succinate 50 mg 50 mg PO DAILY 12/01/23 10/31/24 tablet,extended release 24 hr niacin 500 mg tablet,extended 500 mg PO DAILY 12/01/23 10/31/24 release (Slo-Niacin) Allergies Allergy/AdvReac Type Severity Reaction Status Date / Time No Known Drug Allergies Allergy Verified 10/31/24 08:12 Review of Systems Status of ROS: Reports: 10 or more systems reviewed and unremarkable except as noted in History and below PFSH PFSH Social History Smoking Status: Never smoker How often do you have a drink containing alcohol: never AUDIT-C Alcohol total score: 0 Non-prescribed substance use: denies use Exam Narrative: Exam Narrative: Const: Well-nourished, Well-developed, in mild distress Eyes: PERRL, no conjunctival injection, and symmetrical lids HENT: Atraumatic external nose and ears. Moist mucous membranes. CVS: RRR, No murmurs or gallops. Peripheral pulses 2+ and equal in all extremities RESP: Unlabored respiratory effort. Clear to auscultation bilaterally. MSK:Extremities w/o deformity, Normal Active ROM, no tenderness noted to inner thigh were his pain is Skin: Warm, Dry. No rashes or lesions. Neuro: Normal Muscle tone, No focal neurological deficits. Psych: Awake, Alert, & Oriented x3. Appropriate mood and affect. Const: Vital Signs, click to edit/add: Vital Signs - 24 hr 10/31/24 08:12 Temperature 98.2 F Pulse Rate [Pulse Oximeter] 88 Respiratory Rate 18 Blood Pressure [Ri ght Upper Arm] 160/85 H Pulse Oximetry 99 Oxygen Delivery Me thod Room Air Course Vital Signs Vital signs: Initial Vital Signs Temperature 98.2 F 10/31/24 08:12 Temperature Source Temporal Artery Scan 10/31/24 08:12 Pulse Rate 88 10/31/24 08:12 Respiratory Rate 18 10/31/24 08:12 Blood Pressure 160/85 H 10/31/24 08:12 Blood Pressure Mean 110 H 10/31/24 08:12 Pulse Oximetry 99 10/31/24 08:12 Oxygen Delivery Method Room Air 10/31/24 08:12 Vital Signs Temperature 98.2 F 10/31/24 08:12 Pulse Rate 88 10/31/24 08:12 Respiratory Rate 18 10/31/24 08:12 Blood Pressure 160/85 H 10/31/24 08:12 Pulse Oximetry 99 10/31/24 08:12 Oxygen Delivery Method Room Air 10/31/24 08:12 Temperature 98.2 F 10/31/24 08:12 Pulse Rate 88 10/31/24 08:12 Respiratory Rate 18 10/31/24 08:12 Blood Pressure 160/85 H 10/31/24 08:12 Pulse Oximetry 99 10/31/24 08:12 Oxygen Delivery Method Room Air 10/31/24 08:12 Medical Decision Making [facility] Narrative Medical decision making narrative: Patient is a 79-year-old male presenting to the emergency department for left leg pain. With his recent surgery there is some concern for a blood clot. Will order an ultrasound. Is not showed any symptoms of a PE. No signs of blood clot at this time on the ultrasound. Am unsure was causing his pain. He 81 has a muscle strain or some kind of nerve impingement. I spoke to him in his family but managing this at home. I explained that if he is unable to manage should he needs to be admitted will be undergoing observation stay and all that would entail. Explained he would mostly just work with PT and OT. At this time they are comfortable going home and trying managed there and he will use his oxycodone as needed for pain Imaging Data Venous US: Attestation: I have reviewed the pertinent imaging results. Radiologist's impression: Normal examination Dictated by López Woods MD @ 10/31/2024 9:08:24 AM Discharge Plan Discharge Clinical Impression: Pain in left thigh Patient Disposition: Home, Self-Care Condition: Stable Instructions: Leg Cramps (ED) Additional Instructions: Tried taking your Tylenol and oxycodone at home for pain management when trying to ambulate. Try to manage his pain at home. Follow-up with your primary care provider and/or surgeon. Return to emergency department for new or worsening symptoms. Prescriptions: No Action losartan 50 mg tablet 50 mg PO DAILY atorvastatin 20 mg tablet 20 mg PO DAILY metoprolol succinate 50 mg tablet extended release 24 hr 50 mg PO DAILY levothyroxine 75 mcg tablet 75 mcg PO DAILY niacin [Slo-Niacin] 500 mg tablet extended release 500 mg PO DAILY Follow Up/Referrals: Floyd Valdez MD [Primary Care Provider] - Stand Alone Forms: Refund Exchange Info Instructions
--- OUTSIDE RECORDS SUMMARY | 2024-10-31 09:14 | XMS_ITS | Encounter Summary ---
Author Organization [facility] Address [address] [place] [address] Care Team Providers Care Assisted Living Director Name Role Phone Elsewhere, Pcp Primary Care Provider Unavailabl e Encounter Details Date Type Department Care Team (Late st Contact Info) Description 10/25/2024 10:24 AM CDT - 10/25/2024 1:04 PM CDT Surgery [facility] [address] [place] [address] Lang Linn M.D. [address] [place] [address] 1. Left reverse total shoulder arthroplasty (Enovis, monoblock base plate) 2. Left open biceps tenodesis Social History Tobacco Use Types Packs/Day Years Used Date Smoking Tobacco: Never Smokeless Tobacco: Never Alcohol Use Standard Drinks/Week Comments Not Currently 0 (1 standard drink = 0.6 oz pur e alcohol) Maybe ten drinks a year [facility] Utilities Answer Date Recorded In the past 12 months has [facility] [employer] gas, oil, or water [employer] threatened to shut off services in your [...] How often do you attend chur or samaritan services? More than 4 times per year 11/14/2022 Do you belong to any clubs o r organizations such as pentecostal groups, unions, fraternal or athletic groups, or [...] Answer Date Recorded PHQ-2 Score 0 01/28/2024 [facility] - Occupational [...] your living situation today? I have a [facility] place to live 02/08/2024 Education Answer Date Recorded What is the highest level of school you have completed or the highest degree you have received? 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 - 10/25/2024 11:27 AM CDT Pre-op Diagnosis Pain Shoulder Left Primary Osteoarthritis Shoulder Left Post-op Diagnosis Pain Shoulder Left Primary Osteoarthritis Shoulder Left Bulb Filler A server assistant actively participated and was necessary for [...] discussed overlapping surgery, and how [facility] manages this. The patient agreed and [...] 11:45 AM CDT Appointment Department of Radiology, [facility], in [place], [place] [address] [place] [phone] Christina Duong APRN, C.N.P., M.S.N. [address] [place] [phone] 11/09/2024 1:00 PM CDT Office Visit Department of Orthopedic Surgery in [place], [place] [address] [place] [phone] Christina Duong APRN, C.N.P., M.S.N. [address] [place] [phone] 12/04/2024 9:30 AM CDT Office Visit Department of Family Medicine, [facility], in [place], [place] [address] [place] [address] Kenia Millan APRN, C.N.PNiko [address], [place] [address] Scheduled Orders Name Type Priority [...] Lang D Linn M.D. IMG DIAGNOSTIC IMAGING [place] OCEDURES Final Result documented in this encounter [...] (Given - Provid er: Celsa Richards APRN, AUTOMATIC SHIRRING MACHINE OPERATOR) tranexamic acid in NaCl IVPB 1,000 mg (Cyklokapron) (COMPLETED) 1,000 mg (1 g), intravenous, at 300 mL/hr, Administer over 20 Minutes, Once, On Wed10/25/24 at 1130, For 1 dose, Intra-Op, Administer in OR just before dropping tourniquet 1215 (Given - Provid er: Elizabeth Luciano APRN, AUTOMATIC SHIRRING MACHINE OPERATOR, DNAP)1230 (Anesthesia Volume Adjustment - Provider: Elizabeth N Angelondous, DENTAL RECEPTIONIST, AUTOMATIC SHIRRING MACHINE OPERATOR, DNAP) Continuous Medication Order 10/23/2024 10/24/2024 10/25/2024 [...] request documented in this encounter Care Teams Assisted Living Director Relationship Specialty Start Date End Date Elsewhere, Pcp PCP - General Internal Medicine 11/08/23 documented as of this encounter
--- OUTSIDE RECORDS SUMMARY | 2024-10-31 09:14 | XMS_ITS | Encounter Summary ---
Author Organization [facility] Address [address] [place] [address] Care Team Providers Care Chain Dyer Name Role Phone Elsewhere, Pcp Primary Care Provider Unavailabl e Reason for Visit * Reason Onset Date Comments Pre-visit Intake 10/20/2024 * Appointment Request (Routine) - Authorized Specialty Diagnoses / Procedures Referred By Contac t Referred To Contact Orthopedic Surgery Referral ID Status Reason Start Date Expiration Date V isits Requested Visits Authorized [id number] Authorized 08/01/2024 08/01/2025 1 1 Encounter Details Date Type Department Care Team (Latest Contact Info) Description 10/20/2024 8:30 AM CDT Clinical Communication Virtual Review in [place], [place] 200 [place] [address] Pre-visit Intake Social History Tobacco Use Types Packs/Day Years Used Date Smoking Tobacco: Never Smokeless Tobacco: Never Alcohol Use Standard Drinks/Week Comments Not Currently 0 (1 standard drink = 0.6 oz pur e alcohol) Maybe ten drinks a year [facility] Utilities Answer Date Recorded In the past 12 months has e [employer] gas, oil, or water [email or web address] threatened to shut off services in your [...] Answer Date Recorded PHQ-2 Score 0 01/28/2024 [facility] - [...] your living situation today? I have a [facility] place to live 02/08/2024 Education Answer Date Recorded What is the highest level of school you have completed or the highest degree you have received? 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 200 [place] [address] 11/09/2024 1:00 PM CDT Office Visit Department of Orthopedic Surgery in [place], [place] [address] [place] [address] Christina Duong APRN, C.N.P., M.S.N. [address] [place] [address] 12/04/2024 9:30 AM CDT Office Visit Department of Family Medicine, [facility], in [place], [place] [address] [place] [phone] Kenia Millan APRN, C.N.P. [address] [place] [phone] Scheduled Procedures Name Priority Associated Diagnoses Date/Ti me ARTHRODESIS WRIST documented as of this encounter Visit Diagnoses Not on filedocumented in this encounter Care Teams Chain Dyer Relationship Specialty Start Date End Date Elsewhere, Pcp PCP - General Internal Medicine 11/08/23 documented as of this encounter
--- OUTSIDE RECORDS SUMMARY | 2024-10-31 09:14 | XMS_ITS | Encounter Summary ---
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 [address] [place] [phone] Phone: tel: fax: [facility] Referral ID Status Reason Start Date Expiration Date V isits Requested Visits Authorized [id number] Authorized 10/25/2024 01/25/2026 1 1 * Outpatient (Routine) - Closed Specialty Diagnoses / Procedures Referred By Chato t Referred To Contact Christina Duong APRN, C.N.P., M.S.N. [address] [place] [phone] Phone: tel: fax: [facility] Referral ID Status Reason Start Date Expiration Date Visits Re quested Visits Authorized [id number] Closed 10/25/2024 04/26/2026 1 1 * Outpatient (Routine) - Authorized Specialty Diagnoses / Procedures Referred By Chato t Referred To Contact Orthopedic Surgery Christina Duong APRN, C.N.P., M.S.N. [address] [place] [phone] Phone: tel: fax: [facility] Referral ID Status Reason Start Date Expiration Date V isits Requested Visits Authorized [id number] Authorized 10/25/2024 04/26/2026 1 1 Scheduling Instructions Christina * Outpatient (Routine) - Authorized Specialty Diagnoses / Procedures Referred By Contac t Referred To Contact Orthopedic Surgery Christina Duong APRN, C.N.P., M.S.N. [address] [place] [phone] Phone: tel: fax: Lang Linn M.D. [address] [place] [phone] Phone: tel: fax: Referral ID Status Reason Start Date Expiration Date V isits Requested Visits Authorized [id number] Authorized 10/25/2024 04/26/2026 1 1 * Outpatient (Routine) - Authorized Specialty Diagnoses / Procedures Referred By Contac t Referred To Contact Orthopedic Surgery Christina Duong APRN, C.N.P., M.S.N. [address] [place] [phone] Phone: tel: fax: [facility] Referral ID Status Reason Start Date Expiration Date V isits Requested Visits Authorized [id number] Authorized 10/25/2024 04/26/2026 1 1 Scheduling Instructions Christina @1 Encounter Details Date Type Department Care Team (Latest Contact Info) Description 10/25/2024 8:00 AM CDT - 10/25/2024 4:50 PM CDT Hospital Encounter Outpatient Surgery Unit in [place], [place] [address] [place] [phone] Lang Linn M.D. 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 Utilities Answer Date Recorded In the past 12 months has e [employer], gas, oil, or water [employer] threatened to shut off services in your [...] week 11/14/2022 How often do you attend [facility] or confucianism services? 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 We discussed overlapping surgery, and how [facility] manages this. The patient agreed and wished [...] 11:45 AM CDT Appointment Department of Radiology, [facility], in [place], [place] [address] [place] [phone] Christina Duong APRN, C.N.P., M.S.N. [address] [place] [phone] 11/09/2024 1:00 PM CDT Office Visit Department of Orthopedic Surgery in [place], [place] [address] [place] [phone] Christina Duong APRN, C.N.P., M.S.N. 200 [place] [address] 12/04/2024 9:30 AM CDT Office Visit Department of Family Medicine, [facility], in [place], [place] [address] [place] [address] Kenia Millan APRN, C.N.P. [address] [place] [address] Scheduled Orders Name Type Priority [...] purposes. Lang Linn M.D. IMG DIAGNOSTIC IMAGING [place] OCEDURES Final Result documented in this encounter [...] request documented in this encounter Care Teams Traveling Auditor Relationship Specialty Start Date End Date Elsewhere, Pcp PCP - General Internal Medicine 11/08/23 documented as of this encounter
--- OUTSIDE RECORDS SUMMARY | 2024-10-31 09:14 | XMS_ITS | Encounter Summary ---
Author Organization [facility] Address [address] [place] [address] Care Team Providers Care Route Agent Name Role Phone Elsewhere, Pcp Primary Care Provider Unavailabl e Encounter Details Date Type Department Care Team (Latest Contact Info) Description 10/24/2024 10:55 AM CDT - 10/24/2024 11:59 PM CDT Hospital Encounter Department of Laboratory Medicine and Pathology, [facility] in [place], [place] [address] [place] [address] Elsy Camilo, RAJESH, P.A.-C. [address] [place] [phone] Preanesthetic Medical Exam Discharge Disposition: Home or Self Care Social History Tobacco Use Types Packs/Day Years Used Date Smoking Tobacco: Never Smokeless Tobacco: Never Alcohol Use Standard Drinks/Week Comments Not Currently 0 (1 standard drink = 0.6 oz pur e alcohol) Maybe ten drinks a year [facility] Utilities Answer Date Recorded In the past 12 months has e [employer] gas, oil, or water [employer] threatened to shut off services in your [...] How often do you attend chur or amish services? More than 4 times per year 11/14/2022 Do you belong to any clubs o r organizations such as hindu groups, unions, fraternal or athletic groups, or [...] Answer Date Recorded PHQ-2 Score 0 01/28/2024 [facility] ional Health - [...] your living situation today? I have a [facility] place to live 02/08/2024 Education Answer Date Recorded What is the highest level of school you have completed or the highest degree you have received? Bachelor's degree (e.g., BA, AB, BS) 04/28/2019 Sex and Gender Information Value Date Recorded Sex Assigned at Male 11/14/2022 2:04 PM CDT Legal Sex Male 9:15 AM [employer] Gender Identity Male 11/14/2022 2:04 PM CDT [...] 11:45 AM CDT Appointment Department of Radiology, [facility], in [place], [place] [address] [place] [phone] Christina Duong APRN, C.N.P., M.S.N. [address] [place] [phone] 11/09/2024 1:00 PM CDT Office Visit Department of Orthopedic Surgery in [place], [place] [address] [place] [phone] Christina Duong APRN, C.N.P., M.S.N. [address] [place] [address] 12/04/2024 9:30 AM CDT Office Visit Department of Family Medicine, [facility], in [place], [place] [address] [place] [address] Kenia Millan APRN, C.N.P. [address] [place] [address] Scheduled Procedures Name Priority Associated [...] MENA, P.A.-C. LAB BLOOD ADD-ON Final Result [facility] [address] [place] [address], [facility] 200 [place] [address] * Type and Screen (with Reflex Antibody ID) (10/24/2024 11:16 AM CDT) ABORh O Neg Not applicable 10/24/2024 4:59 PM CDT ETRM Antibody Screen Negative Negative 10/24/2024 5:09 PM CDT ETRM Type & Screen Expiration 12/22/2024 23:59 10/24/2024 4:59 PM CDT ETRM Testing Location [place] DEFAULT 10/24/2024 3:51 PM CDT ETRM Blood (Blood, Venous) 10/24/2024 11:16 AM CDT 10/24/2024 3:51 PM CDT Elsy MENA, P.A.-C. LAB BLOOD BANK TE ST ORDERABLES Final Result [facility] [address] [place] [address], [facility] E[facility] 200 [place] [address] documented in this encounter Visit Diagnoses Diagnosis Preanesthetic Medical Exam documented in this encounter Care Teams Route Agent Relationship Specialty Start Date End Date Elsewhere, Pcp PCP - General Internal Medicine 11/08/23 documented as of this encounter
--- OUTSIDE RECORDS SUMMARY | 2024-10-31 09:14 | XMS_ITS | Encounter Summary ---
Author Organization [facility] Address [address] [place] [address] Care Team Providers Care Safety Engineer Pressure Vessels Name Role Phone Elsewhere, Pcp Primary Care Provider Unavailabl e Reason for Visit * Outpatient (Routine) - Closed Specialty Diagnoses / Procedures Referred By Chato t Referred To Contact Anesthesiology Diagnoses Pain Shoulder Left Primary Osteoarthritis Shoulder Left Floyd Burger MPAS, P.A.-C., M.S. [address] [place] [phone] Phone: tel: fax: [facility] Referral ID Status Reason Start Date Expiration Date Visits Re quested Visits Authorized [id number] Closed 07/27/2024 01/26/2026 1 1 Encounter Details Date Type Department Care Team (Latest Contact Info) Description 10/24/2024 2:00 PM CDT Comprehensive Visit Preoperative Evaluation Center in [place], [place] [address] [place] [phone] Floyd Burger MPAS, P.A.Emanuel., M.S. [address] [place] [phone] Julissa Osborn APRN, C.N.P., D.N.P., M.S. [address] [place] [phone] Hypertension Essential Primary (Primary Dx); Pain Shoulder [...] e alcohol) Maybe ten drinks a year [facility] Utilities Answer Date Recorded In the [...] week 11/14/2022 How often do you attend [facility] or evangelical services? More than 4 times per year 11/14/2022 Do you belong to any clubs o r organizations such as restorationism groups, unions, fraternal or athletic groups, or [...] Answer Date Recorded PHQ-2 Score 0 01/28/2024 [facility] - Occupational Stress Questionnaire Answer Date [...] living situation today? I have a [facility] place to live 02/08/2024 Education Answer Date Recorded What is the highest level of school you have completed or the highest degree you have received? 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 Gender Identity Male 11/14/2022 2:04 PM CDT [...] from 10/24/2024 in Preoperative Evaluation Center in [place], [place] Most recent reading at 10/24/2024 2:18 PM Comprehensive Visit from 10/17/2020 in [facility] in [place], [place] Most recent reading at 10/17/2020 12:02 PM Appointment from 08/21/2020 in [facility] in [place], [place] Most recent reading at 06/14/2020 11:45 AM Appointment from 06/17/2020 in [facility] in [place], [place] Most recent reading at 06/14/2020 11:45 [...] Get Ready for Your Surgery or Procedure: [facility] [id number] rev 0124. Written and verbal instructions given on medication management beforesurgery. RECOMMENDATIONS: Patient medically optimized for planned procedure: Yes Further Recommendations: None documented in this encounter Plan of Treatment Upcoming Encounters Date Type Department Care Team (Late st Contact Info) Description 11/09/2024 11:45 AM CDT Appointment Department of Radiology, [facility], in [place], [place] [address] [place] [address] Christina Duong APRN, C.N.P., M.S.N. [address] [place] [address] 11/09/2024 1:00 PM CDT Office Visit Department of Orthopedic Surgery in [place], [place] [address] [place] [address] Christina Duong APRN, C.N.Shayy., M.S.N. [address] [place] [address] 12/04/2024 9:30 AM CDT Office Visit Department of Family Medicine, [facility], in [place], [place] [address] [phone] Kenia Millan APRN, C.N.P. [address] [place] [phone] Scheduled Procedures Name Priority Associated Diagnoses Date/Ti me ARTHRODESIS WRIST documented as of this encounter Visit Diagnoses Diagnosis Hypertension Essential Primary- Primary Pain Shoulder Left Primary Osteoarthritis Shoulder Left Gastroesophageal Reflux Disease Without Esophagitis Stricture Esophagus Hyperlipidemia Mixed Hypothyroidism Abnormal Stress Test documented in this encounter Care Teams Safety Engineer Pressure Vessels Relationship Specialty Start Date End Date Elsewhere, Pcp PCP - General Internal Medicine 11/08/23 documented as of this encounter
--- OUTSIDE RECORDS SUMMARY | 2024-10-31 09:14 | XMS_ITS | Clinical Summary ---
Author Organization [facility] [employer] [facility] [employer] [facility] Address [address] [place] [address] Care Team Providers Care Balloon Seller Name Role Phone James Pompa MD Unavailable Jose Carpenter MD Unavailable Unavai shanelle Lin, Neto Weaver MD Unavailable Clemente Núñez MD Unavailable [phone] Floyd Valdez MD Primary Care Provider [phone] Allergies No known active allergies Medications hydrocortisone [...] Type Department Care Team Description 09/04/[address] 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 [address] [place] [address] [place] 11/28/2024 9:10 AM CDT Office Visit [facility] [address] [place] [address] Floyd Valdez MD [address] [place] [address] Health Maintenance Due Date Last Done Comments [...] nadia Non-React nadia 12/29/2017 5:33 PM CDT [facility] Comment:Antibodies to HCV no t detected; does not exclude the possibility of exposure to HCV. Blood BLOOD SPECIMEN / Unknown Venipuncture / Unknown 12/29/2017 7:56 AM CDT 12/29/2017 10:51 AM CDT Iban Sabillon MD SEND OUTS Final Re sult [facility] [address] [place] [address], [place] from Last 3 Months or Most Recently Relevant to Health Maintenance Insurance [employer] [place] [employer] MR PB ONLY [employer] [place] BL[employer] HB ONLY MEDICARE PART B HB ONLY Care Teams Balloon Seller Relationship Specialty Start Date End Date Floyd Valdez MD [address] [place] [address] PCP - General Family Practice 09/10/22 James Pompa MD [address] [place] [address] Gastroenterology 11/24/11 Joes Carpenter MD [address] [place] [address] Surgery - Urology 11/24/11 Neto Lin MD [address] [place] [address] Orthopedics Surgery - Orthopedic 07/11/13 Clemente Núñez MD [address] [facility] [address] [place] [address] Rheumatology Rheumatology 05/29/14
--- OUTSIDE RECORDS SUMMARY | 2024-10-31 09:14 | XMS_ITS | Encounter Summary ---
Author Organization [facility] Address [address] [place] [address] Care Team Providers Care School Librarian Name Role Phone Elsewhere, Pcp Primary Care Provider Unavailabl e Reason for Visit * Reason Comments Pre-op Exam * Outpatient (Routine) - Closed Specialty Diagnoses / Procedures Referred By Chato austin Referred To Contact Orthopedic Surgery Floyd Burger MPAS, P.A.-C., M.S. [address] [place] [phone] Phone: tel: fax: Lang Linn M.D. [address] [place] [phone] Phone: tel: fax: Referral ID Status Reason Start Date Expiration Date Visits Re quested Visits Authorized [id number] Closed 07/27/2024 01/26/2026 1 1 Encounter Details Date Type Department Care Team (Late st Contact Info) Description 10/24/2024 1:00 PM CDT Office Visit Department of Orthopedic Surgery in [place], [place] [address] [place] [phone] Lang Linn M.D. [address] [place] [phone] Pain Shoulder Left (Primary Dx) Social History Tobacco Use Types Packs/Day Years Used Date Smoking Tobacco: Never Smokeless Tobacco: Never Alcohol Use Standard Drinks/Week Comments Not Currently 0 (1 standard drink = 0.6 oz pur e alcohol) Maybe ten drinks a year [facility] Utilities Answer Date Recorded In the [...] week 11/14/2022 How often do you attend [facility] or amish services? 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 [address] [place] [phone] 11/09/2024 1:00 PM CDT Office Visit Department of Orthopedic Surgery in [place], [place] [address] [place] [address] Christina Duong APRN, C.N.P., M.S.N. [address] [place] [address] [place] [address] 12/04/2024 9:30 AM CDT Office Visit Department of Family Medicine, [facility], in [place], [place] [address] [place] [phone] Kenia Millan APRN, C.N.P. [address], [place] [address] Scheduled Procedures Name Priority Associated Diagnoses Date/Ti me ARTHRODESIS WRIST documented as of this encounter Visit Diagnoses Diagnosis Pain Shoulder Left- Primary documented in this encounter Care Teams School Librarian Relationship Specialty Start Date End Date Elsewhere, Pcp PCP - General Internal Medicine 11/08/23 documented as of this encounter
--- OUTSIDE RECORDS SUMMARY | 2024-10-31 09:14 | XMS_ITS | Encounter Summary ---
Author Organization [facility] Address [address] [place] [address] Care Team Providers Care Community Health Promoter Name Role Phone Elsewhere, Pcp Primary Care Provider Unavailabl e Encounter Details Date Type Department Care Team (Late st Contact Info) Description 10/25/2024 10:42 AM CDT Anesthesia Event [facility] OR [address] [place] [address] Hany Donahue M.D. [address] [place] [phone] Tylor Hodgson M.D. [address] [place] [phone] Anesthesia Record Procedure Summary Procedure Name Responsible [...] Anes CS Handoff I, Celsa Priest uda, HEARING AID MECHANIC, ESTIMATOR PROJECT MANAGER, attest that I have reconciled the controlled [...] e alcohol) Maybe ten drinks a year [facility] IPextremeities Answer Date Recorded In the past 12 months has e [employer], gas, oil, or water [employer] threatened to shut off services in your [...] week 11/14/2022 How often do you attend [facility] or latter-day services? 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 - 10/25/2024 1:33 PM CDT Patient: Paul Brown Procedure Summary Date: 10/25/24 Room / Location: [address] / [facility] in [place], [place] Anesthesia Start: 1042 Anesthesia Stop: 1313 [...] ETT location: oral VL device: glide scope [place] scope blade size: 4 Tube size: 7 [...] fellow participated in the procedure, and the retail consultant was present for the entire procedure. Cosigned by Edgar Alfred D.O. at 10/25/2024 10:50 AM CDT * Anesthesia Preprocedure Evaluation - Hany Donahue M.D. - 10/25/2024 9:55 AM CDT Preprocedure Anesthesia & H&P Assessment Procedure Summary Date/Time: 10/25/24 1024 Procedure: Left reverse total shoulder arthroplasty. 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 Location: [place] [address] / [facility] in [place], [place] Providers: Lang Linn M.D. Pertinent components [...] with patient /legal guardian or through an hand printed circuit board assembler. Risks/Benefits/Alternatives of Blood transfusion discussed with patient [...] Appointment Department of Radiology, [facility], in [place], [place] [address] [place] [address] Christina Duong APRN, C.N.P., M.S.N. [address] [place] [phone] 11/09/2024 1:00 PM CDT Office Visit Department of Orthopedic Surgery in [place], [place] [address] [place] [address] Christina Duong APRN C.N.P., M.S.N. [address] [place] [phone] 12/04/2024 9:30 AM CDT Office Visit Department of Family Medicine, [facility], in [place], [place] [address] [place] [phone] Kenia Millan APRN, C.N.PNiko [address] [place] [phone] Scheduled Procedures Name Priority Associated Diagnoses Date/Ti me ARTHRODESIS WRIST documented as of this encounter Procedures Procedure Name Priority Date/Time Associated Diagnosis Comments LDA ANE ENDOTRACHEAL AIRWAY Routine 10/25/2024 10:51 AM CDT AL INJ ANES BRACHIAL PLEX W GUIDANCE Routine 10/25/2024 10:31 AM CDT documented in this encounter Results * LDA ANE ENDOTRACHEAL AIRWAY (10/25/2024 10:51 AM CDT) Narrative Elizabeth Luciano APRN, ESTIMATOR PROJECT MANAGER, DNAP - 10/25/2024 10:51 AM CDT Elizabeth [...] ETT location: oral VL device: glide scope [place] scope blade size: 4 Tube size: 7 [...] M.D. ANESTHESIA ORDERABLES Final R esult * AL INJ ANES BRACHIAL PLEX W GUIDANCE (10/25/2024 [...] fellow participated in the procedure, and the retail consultant was present for the entire procedure. [...] g documented in this encounter Care Teams Community Health Promoter Relationship Specialty Start Date End Date Elsewhere, Pcp PCP - General Internal Medicine 11/08/23 documented as of this encounter
--- OUTSIDE RECORDS SUMMARY | 2024-10-31 09:14 | XMS_ITS | Encounter Summary ---
Author Organization [facility] Address [address] [place] [id number] Care Team Providers Care Trolley Operator Name Role Phone Elsewhere, Pcp Primary Care Provider Unavailabl e Reason for Visit * Reason Comments Post-op * Outpatient (Routine) - Closed Specialty Diagnoses / Procedures Referred By Chato austin Referred To Contact Christina Duong APRN C.N.P., M.S.N. [address] [place] [phone] Phone: tel: fax: [facility] Referral ID Status Reason Start Date Expiration Date Visits Re quested Visits Authorized [id number] Closed 10/25/2024 04/26/2026 1 1 Encounter Details Date Type Department Care Team (Latest Contact Info) Description 10/26/2024 10:00 AM CDT Virtual Visit Department of Orthopedic Surgery in [place], [place] [address] [place] [phone] Christina Duong APRN C.N.P., M.S.N. [address] [place] [phone] Arthroplasty Total Shoulder Replacement Status Post Left (Primary Dx) Social History Tobacco Use Types Packs/Day Years Used Date Smoking Tobacco: Never Smokeless Tobacco: Never Alcohol Use Standard Drinks/Week Comments Not Currently 0 (1 standard drink = 0.6 oz pur e alcohol) Maybe ten drinks a year [facility] Utilities Answer Date Recorded In the past 12 months has [employer], oil, or water [employer] threatened to shut off services in your [...] How often do you attend chur or yarsani services? More than 4 times per year [...] Answer Date Recorded PHQ-2 Score 0 01/28/2024 [facility] - Occupational Stress [...] your living situation today? I have a [facility] place to live 02/08/2024 Education Answer Date Recorded What is the highest level of school you have completed or the highest degree you have received? 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 [address] [place] [phone] 11/09/2024 1:00 PM CDT Office Visit Department of Orthopedic Surgery in [place], [place] [address] [place] [phone] Christina Duong APRN, C.NShante, M.S.N. [address] [place] [phone] 12/04/2024 9:30 AM CDT Office Visit Department of Family Medicine, [facility], in [place], [place] [address] [place] [address] Kenia Millan APRN, C.N.P. [address] [place] [address] Scheduled Procedures Name Priority Associated Diagnoses Date/Ti me ARTHRODESIS WRIST documented as of this encounter Visit Diagnoses Diagnosis Arthroplasty Total Shoulder Replacement Status Post Left- Primary documented in this encounter Care Teams Trolley Operator Relationship Specialty Start Date End Date Elsewhere, Pcp PCP - General Internal Medicine 11/08/23 documented as of this encounter
--- OUTSIDE RECORDS SUMMARY | 2024-10-31 09:15 | XMS_ITS | Clinical Summary ---
Author Organization [facility] Address [address] [place] [address] Care Team Providers Care Risk Management Specialist Name Role Phone Elsewhere, Pcp Primary Care Provider Unavailabl e Source Comments Patient records contain information from all sites at [facility]. For routine questions regarding patient records, call [phone] during business hours, M-F 8:00 AM - 5:00 PM Central Time. Record requests for emergency care only can be directed to [phone] at any time.[facility] Allergies No known active allergies Medications * [...] (02/08/2020): Added automatically from request for surgery [id number] Beat Premature Ventricular 04/28/2019 Pain Shoulder Right 03/31/2019 Hypertension Essential Primary 01/30/2019 Gastroesophageal Reflux Disease NOS 09/11/2014 Hyperlipidemia Mixed 10/29/2009 Stricture Esophagus 08/11/2007 Hypothyroidism 12/31/2006 Encounters Date Type Department Care Team Description 10/26/2024 10:00 AM CDT Virtual Visit Department of Orthopedic Surgery in [place], [place] [address] [place] [address] Christina Duong, ALBA, C.N.P., M.S.N. Arthroplasty Total Shoulder Replacement Status Post Left (Primary Dx) 10/25/2024 10:42 AM CDT Anesthesia Event T [facility] OR [address] [place] [address] Hany Donahue M.D. Cacioppo, Paul T, M.D. 10/25/2024 10:24 AM CDT - 10/25/2024 1:04 PM CDT Surgery RST [facility] OR [address] [place] [address] Lang Linn M.D. 1. Left reverse total shoulder arthroplasty (Enovis, monoblock base plate) 2. Left open biceps tenodesis 10/25/2024 10:20 AM CDT Ancillary Procedure Department of Anesthesiology 10/25/2024 8:00 AM CDT - 10/25/2024 4:50 PM CDT Hospital Encounter Outpatient Surgery Unit in [place], [place] [address] [place] [phone] Lang Linn M.D. Arthroplasty Total Shoulder Replacement Status Post Left (Primary Dx) Discharge Disposition: Home or Self Care 10/24/2024 2:00 PM CDT Comprehensive Visit Preoperative Evaluation Center in [place], [place] [address] [place] [address] Floyd Burger MPAS, P.A.-C., M.S. Julissa Osborn APRN, C.N.P., D.N.P., M.S. Hypertension Essential Primary (Primary Dx); Pain Shoulder Left; Primary Osteoarthritis Shoulder Left; Gastroesophageal Reflux Disease Without Esophagitis; Stricture Esophagus; Hyperlipidemia Mixed; Hypothyroidism; Abnormal Stress Test 10/24/2024 1:00 PM CDT Office Visit Department of Orthopedic Surgery in [place], [place] [address] [place] [phone] Lagn Linn M.D. Pain Shoulder Left (Primary Dx) 10/24/2024 10:55 AM CDT - 10/24/2024 11:59 PM CDT Hospital Encounter Department of Laboratory Medicine and Pathology, [facility] in [place], [place] [address] [place] [address] Elsy Camilo MPAS, P.A.-C. Preanesthetic Medical Exam Discharge Disposition: Home or Self Care 10/20/2024 8:30 AM CDT Clinical Communication Virtual Review in [place], [place] [address] [place] [address] Pre-visit Intake from Last 3 Months Immunizations [...] e alcohol) Maybe ten drinks a year [facility] Utilities Answer Date Recorded In the [...] often do you attend chur ch or sikhism services? More than 4 times per year 11/14/2022 Do you belong to any clubs o r organizations such as latter day groups, unions, fraternal or athletic groups, or [...] Answer Date Recorded PHQ-2 Score 0 01/28/2024 [facility] - Occupational Stress Questionnaire Answer Date [...] your living situation today? I have a [facility] place to live 02/08/2024 Education Answer Date Recorded What is the highest level of school you have completed or the highest degree you have received? 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 [address] [place] [address] 11/09/2024 1:00 PM CDT Office Visit Department of Orthopedic Surgery in [place], [place] [address] [place] [address] Christina Duong APRN, C.N.Shayy., M.S.N. [address] [place] [address] 12/04/2024 9:30 AM CDT Office Visit Department of Family Medicine, [facility], in [place], [place] [address], [place] [address] Kenia Millan APRN, C.N.PNiko [address], [place] [address] Scheduled Procedures Name Priority Associated [...] this topic Medical Devices Implanted Type Area Field Staff Manager Device Identifier Shelf Expiration Date Model / Serial / Lot Cmnt Bn Hi Visc Pmma 20 - [id number] Implanted:Qty: 1 on 09/22/2019 by Charanjit Kc M.D. at [facility] Bone Cement Right: Shoulder William 6188-1- 001 / / Cmnt Bn Hi Visc Pmma 20 - [id number] Implanted:Qty: 1 on 09/22/2019 by Charanjit Kc M.D. at [facility] Bone Cement Right: Shoulder William 6188-1- 001 / / Description:Wasted: Surgeon Error- attempted to use in patient but hardened too quick with implant Screw Xpode Lock 2.4 X 20mm - Germain [id number] Implanted:Qty: 2 on 09/18/2014 Hardware e.g. pins/screw s/rods [employer] Description:Device Manufactu rer - [place] [employer].. Device Status Text - HARDWARE-23579. Jayceire 4 .054 - Germain [id number] Implanted:Qty: 1 on 09/18/2014 Hardware e.g. pins/screw s/rods [employer] Description:Device Manufactu rer - [employer]. Device Status Text - HARDWARE-79028. Screw Xpode Lock 2.4 X 14mm - Germain [id number] Implanted:Qty: 2 on 09/18/2014 Hardware e.g. pins/screw s/rods [employer] Description:Device Manufactu rer - [employer] Device Status Text - HARDWARE-52662. Screw Xpode Lock 2.4 X 16mm - Germain [id number] Implanted:Qty: 1 on 09/18/2014 Hardware e.g. pins/screw s/rods [employer] Description:Device Manufactu rer - [employer] Device Status Text - HARDWARE-93243. Trimed-Plate Fusion Cup 14mm 7h - Germain [id number] Implanted:Qty: 1 on 09/18/2014 Hardware e.g. pins/screw s/rods [employer] Description:Device Manufactu rer - [employer] Inc.. Device Status Text - HARDWARE-237809. K-Wire-Ss 4 Smooth .062 - Germain [id number] Implanted:Qty: 2 on 09/18/2014 Hardware e.g. pins/screw s/rods William Description:Device Manufactu rer - [place] [employer].. Device Status Text - HARDWARE-871. Screw Xpode Lock 2.4 X 12mm - Germain [id number] Implanted:Qty: 5 on 09/18/2014 Hardware e.g. pins/screw s/rods [employer] Description:Device Manufactu rer - Trimed [employer] Device Status Text - HARDWARE-56461. Screw Xpode Lock 2.4 X 10mm - Germain [id number] Implanted:Qty: 2 on 09/18/2014 Hardware e.g. pins/screw s/rods [employer] Description:Device Manufactu rer - [employer].. Device Status Text - HARDWARE-20567. Gresham Screw 2 Canc 6.5 X 15 - Germain [id number] Implanted:Qty: 1 on 07/03/2015 Hardware e.g. pins/screw s/rods [employer] Description:Device Manufactu rer - J [employer] J [employer]. Device Status Text - HARDWARE-06263. Gresham Screw 2 Canc 6.5 X 30 - Germain [id number] Implanted:Qty: 1 on 07/03/2015 Hardware e.g. pins/screw s/rods [employer] Description:Device Manufactu rer - J [employer] J [employer]. Device Status Text - HARDWARE-16688. Scrw Pnn Acet Ft 6.5x35 - [id number] Implanted:Qty: 1 on 10/18/2020 by López Ramos M.D. at [facility] Hardware e.g. pins/screw s/rods Left: Hip Depuy Synthes 08/01/2030 1217-35 -500 / / [id number] Scrw Pnn Acet Ft 6.5x8 - [id number] Implanted:Qty: 1 on 10/18/2020 by López Ramos M.D. at [facility] Hardware e.g. pins/screw s/rods Left: Hip Depuy Synthes 07/01/2030 1217-08 -500 / / [id number] Gresham Liner Altrx Neut 36x62 - [id number] Implanted:Qty: 1 on 07/03/2015 Hip Implant Other/Legacy - See Implant Description [employer] Description:Device Manufactu rer - [employer]. Body Location - Other. Right. Device Status Text - HIP IMP-937019. Hip Stem Secur-Fit +Max 12 40 - Germain [id number] Implanted:Qty: 1 on 07/03/2015 Hip Implant Other/Legacy - See Implant Description William Description:Device Manufactu rer - William Eri.. Body Location - Other. Right. Device Status Text - HIP IMP-332035. Biolox-Delta Head C-Taper 36mm -2.5 - Germain [id number] Implanted:Qty: 1 on 07/03/2015 Hip Implant Other/Legacy - See Implant Description [place] Description:Device Manufactu rer - [place] [employer].. Body Location - Other. Right. Device Status Text - HIP IMP-103808. Gresham Shell Multi 2 62mm - Germain [id number] Implanted:Qty: 1 on 07/03/2015 Hip Implant Other/Legacy - See Implant Description [employer] Description:Device Manufactu rer - J [employer] J [employer]. Body Location - Other. Right. Device Status Text - HIP IMP-621159. Shll Acet Pnn Mhl Porct 62 - [id number] Implanted:Qty: 1 on 10/18/2020 by López Ramos M.D. at [facility] Hip Implant Left: Hip Depuy Synthes 08/01/2030 1217-20 -062 / / [id number] Lnr Alt 0d 40x62 - [id number] Implanted:Qty: 1 on 10/18/2020 by López Ramos M.D. at [facility] Hip Implant Left: Hip Depuy Synthes 09/01/2025 1221-40 -062 / / [id number] Hip Stm Scr +Max Sz12 51u989 - [id number] Implanted:Qty: 1 on 10/18/2020 by López Ramos M.D. at [facility] Hip Implant Left: Hip William 05/31/2024 6052-12 40S / / [id number] Slv Drl Hip Cocr -2.5 - [id number] Implanted:Qty: 1 on 10/18/2020 by López Ramos M.D. at [facility] Hip Implant Left: Hip [place] 10/22/2024 19-0325 T / / [id number] Fem Hd Blx +0x40 - [id number] Implanted:Qty: 1 on 10/18/2020 by López Ramos M.D. at [facility] Hip Implant Left: Hip William 06/16/2025 6519-1- 040 / / [id number] Comp Glnd Alt Pgd 50 - [id number] Implanted:Qty: 1 on 09/22/2019 by Charanjit Kc M.D. at [facility] Shoulder Implant Right: Shoulder [employer] 01/05/2023 521-07- 250 / / [id number] Description:Wasted: Surgeon Error, opened and attempted use Comp Glnd Alt Pgd 50 - [id number] Implanted:Qty: 1 on 09/22/2019 by Charanjit Kc M.D. at [facility] Shoulder Implant Right: Shoulder [employer] 11/22/2022 521-07- 250 / / [id number] Hum Stm Alt Shrt 16 - [id number] Implanted:Qty: 1 on 09/22/2019 by Charanjit Kc M.D. at [facility] Shoulder Implant Right: Shoulder [employer] 03/01/2024 520-16- 000 / / [id number] Hum Stm Alt Neut - [id number] Implanted:Qty: 1 on 09/22/2019 by Charanjit Kc M.D. at [facility] Shoulder Implant Right: Shoulder [employer] 06/21/2025 520-07- 000 / / [id number] Hum Hd Alt Ofst 18x54 - [id number] Implanted:Qty: 1 on 09/22/2019 by Charanjit Kc M.D. at [facility] Shoulder Implant [employer] 06/02/2023 520-54- 318 / / [id number] Rsp Glenoid Head W? Retaining Screw 4mm Sz 40 Implanted:Qty: 1 on 10/25/2024 by Lang Linn M.D. at [facility] Shoulder Implant Left: Shoulder [employer] [id number] 10/09/2030 508-40- 101 / / [id number] Rsp Glenoid Baweplate 30mm Screw Implanted:Qty: 1 on 10/25/2024 by Lang Linn M.D. at [facility] Shoulder Implant Left: Shoulder [employer] [id number] 08/30/2030 508-32- 204 / / [id number] Alivate Reverse Torx Screw 22mm Implanted:Qty: 1 on 10/25/2024 by Lang Linn M.D. at [facility] Shoulder Implant Left: Shoulder [employer] [id number] 05/11/2029 506-04- 122 / / [id number] Alivate Reverse Torx Screw 18mm Implanted:Qty: 1 on 10/25/2024 by Lang Linn M.D. at [facility] Shoulder Implant Left: Shoulder [employer] [id number] 05/11/2029 506-04- 118 / / [id number] Insert 40mm Semi Constrained Implanted:Qty: 1 on 10/25/2024 by Lang Linn M.D. at [facility] Shoulder Implant Left: Shoulder [employer] [id number] 08/26/2029 509-03- 040 / / [id number] Humeral Stem Small Shell [id number] Implanted:Qty: 1 on 10/25/2024 by Lang Linn M.D. at [facility] Shoulder Implant Left: Shoulder [employer] [id number] 09/14/2030 533-10- 108 / / [id number] 1D Procedures Procedure Name Priority Date/Time Associated Diagnosis Comments DX SHOULDER LEFT 1 VIEW RAD - Routine (most inpatients and all outpatients) 10/25/2024 1:07 PM CDT LDA ANE ENDOTRACHEAL AIRWAY Routine 10/25/2024 10:51 AM CDT MT INJ ANES BRACHIAL PLEX W GUIDANCE Routine [...] IMG DIAGNOSTIC IMAGING MT OCEDURES Final Result * LDA ANE ENDOTRACHEAL [...] ETT location: oral VL device: glide scope [place] scope blade size: 4 Tube size: 7 [...] M.D. ANESTHESIA ORDERABLES Final R esult * MT INJ ANES BRACHIAL PLEX W GUIDANCE (10/25/2024 [...] fellow participated in the procedure, and the center consultant was present for the entire procedure. [...] PROCE DURES Final Result Performing Organization Address City/[facility] Co de Phone Number IIMD NA * Type and Screen (with Reflex Antibody ID) (10/24/2024 11:16 AM CDT) Pathologist [facility] ABORh O Neg Not applicable 10/24/2024 4:59 PM CDT ETRM Antibody Screen Negative Negative 10/24/2024 5:09 PM CDT ETRM Type & Screen Expiration 12/22/2024 23:59 10/24/2024 4:59 PM CDT ETRM Testing Location [place] DEFAULT 10/24/2024 3:51 PM CDT ETRM Blood (Blood, Venous) 10/24/2024 11:16 AM CDT 10/24/2024 3:51 PM CDT Elsy MENA, P.A.-C. LAB BLOOD BANK TE ORDERABLES Final Result Performing Organization Address City/[facility]/ZIP Co de Phone Number [facility] [address] [place] [address], [facility] ETRM [facility] [address] [place] [address] * (ABNORMAL) Basic Metabolic Panel (10/24/2024 11:16 AM CDT) [facility] Potassium, S 4.8 3.6 - 5.2 [...] BLOOD ADD-ON Final Result Performing Organization Address City/[facility]/ZIP Co de Phone Number [facility] [address] [place] [address], [facility] DTL [facility] [address] [place] [address] * Thyroid Function [place] (01/13/2024 1:03 PM CDT) TSH, Sensitive 2.2 0.3 - 4.2 mIU/L 01/13/2024 2:06 PM CDT DTL Blood (Blood, Venous) 01/13/2024 1:03 PM CDT 01/13/2024 1:40 PM CDT us Chelly MENA, PNikoA.-C., M.S. LAB BLOOD AD D-ON Final Result [facility] [address] [place] [address], [place] DTL [facility] [address] [place] [address] from Last 3 Months or Most Recently Relevant to Health Maintenance Insurance [facility] [place] [address] MEDICARE Advance Directives For more information, please contact: [phone] * Full Code (Latest Code Status on File) Date Activated Date Inactivated Comments 10/18/2020 12:00 PM 10/19/2020 12:55 PM Question Answer Comments Full Code: Discussed Care Teams Risk Management Specialist Relationship Specialty Start Date End Date Elsewhere, Pcp PCP - General Internal Medicine 11/08/23
--- OUTSIDE RECORDS SUMMARY | 2024-10-31 09:15 | XMS_ITS | Encounter Summary ---
Author Organization [facility] Address [address] [place] [address] Care Team Providers Care Sandfill Operator Surface Name Role Phone Elsewhere, Pcp Primary Care [...] Maybe ten drinks a year [facility] Utilities Answer Date Recorded In the past 12 months has [employer], gas, oil, or water company threatened [...] How often do you attend chur or latter-day services? More than 4 times [...] Answer Date Recorded PHQ-2 Score 0 01/28/2024 [facility] - Occupational Stress Questionnaire Answer [...] your living situation today? [facility] have [facility] place [facility] live 02/08/2024 Education Answer Date Recorded What is the highest level of school you have completed or the highest degree you have received? 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 [address] [place] [phone] 11/09/2024 1:00 PM CDT Office Visit Department of Orthopedic Surgery in [place], [place] [address] [place] [address] Christina Duong APRN, C.N.P., M.S.N. [address] [place] [phone] 12/04/2024 9:30 AM CDT Office Visit Department of Family Medicine, [facility], in [place], [place] [address] [place] [phone] Kenia Millan APRN, C.N.P. [address] [place] [phone] Scheduled Procedures Name Priority Associated Diagnoses Date/Ti [...] on filedocumented in this encounter Care Teams Sandfill Operator Surface Relationship Specialty Start Date End Date Elsewhere, Pcp PCP - General Internal Medicine 11/08/23 documented as of this encounter
== END 2024-10-31 09:56 | disposition home or self-care (01) ==
PROVIDERS: Emergency Provider Student in an Organized Health Care Education/Training Program; PCP Family Medicine
DX: M79.652 Pain in left thigh (principal)
CPT/HCPCS: 93971; 99283